=== PATIENT | male | born 1945 | race Hispanic/Latino ===

== ENCOUNTER 2017-12-27 02:45 | Emergency (ER) | payer OTHER ==
[2017-12-27] MEDS ORDERED: LABETALOL HCL 5 MG/ML 20ML VIAL IV ONE (03:10)
[2017-12-27 03:33] LABS: BASOPHILS % (AUTO) 0.9 % (0.0-5.0); EOSINOPHILS % (AUTO) 2.4 % (0.0-8.0); LYMPHOCYTES % (AUTO) 33.3 % (21.0-51.0); MEAN CORPUSCULAR HEMOGLOBIN 28.5 pg (27.0-33.0); MEAN CORPUSCULAR HGB CONC 33.8 g/dL (32.0-36.0); MEAN CORPUSCULAR VOLUME 84.4 fL (79-99); MONOCYTES % (AUTO) 12.2 % (3.0-13.0); NEUTROPHILS % (AUTO) 51.2 % (40.0-77.0); NUCLEATED RED BLOOD CELLS 0.1 % (0.0-0.19); PLATELET COUNT (AUTO) 254 K/uL (130-400); RED BLOOD CELL COUNT(AUTO) 4.98 MIL/uL (4.50-6.20); RED CELL DISTRIBUTION WIDTH 13.5 % (11.0-15.5); WHITE BLOOD COUNT (AUTO) 6.7 K/uL (4.8-10.8)
[2017-12-27 03:42] LABS: APPEARANCE,URINE Clear (CLEAR); BILIRUBIN,URINE Negative (NEGATIVE); COLOR,URINE Yellow (YELLOW); GLUCOSE, URINE (UA) Negative (NEGATIVE); KETONES,URINE Negative (NEGATIVE); LEUKOCYTE ESTERASE ,URINE Negative (NEGATIVE); NITRATE,URINE Negative (NEGATIVE); OCCULT BLOOD,URINE Negative (NEGATIVE); POTASSIUM 3.7 mmol/L (3.5-5.1); PROTEIN,URINE Negative (NEGATIVE); UROBILINOGEN,URINE 0.2 mg/dL (0.2-1.0)
== END 2017-12-27 05:38 | disposition home or self-care (01) ==
LOC: EDH 02:45
DX: R51 Headache (principal); I10 Essential (primary) hypertension
CPT/HCPCS: 36415; 70450; 80048; 81003; 84484; 85025; 93005; 96374; 99285; J3490

== ENCOUNTER → 2018-01-11 | Outpatient (CLI) | payer OTHER | END | disposition home or self-care (01) | LOC: RAH 07:31 | PROVIDERS: ATTEND Internal Medicine | DX: H53.2 Diplopia (principal); H53.8 Other visual disturbances; I10 Essential (primary) hypertension; R51 Headache | CPT/HCPCS: 70551 ==

== ENCOUNTER → 2019-11-01 | Outpatient (CLI) | payer OTHER | END | disposition home or self-care (01) | LOC: OIH 12:14 | PROVIDERS: ATTEND Internal Medicine | DX: R05 Cough (principal); M47.814 Spondylosis without myelopathy or radiculopathy, thoracic region | CPT/HCPCS: 71046 ==

== ENCOUNTER → 2019-11-05 | Outpatient (CLI) | payer OTHER | END | disposition home or self-care (01) | LOC: RAH 07:37 | PROVIDERS: ATTEND Internal Medicine | DX: K76.0 Fatty (change of) liver, not elsewhere classified (principal); R16.0 Hepatomegaly, not elsewhere classified; N28.1 Cyst of kidney, acquired; R05 Cough | CPT/HCPCS: 76700 ==

== ENCOUNTER 2020-04-09 01:22 | Inpatient (IN) | payer OTHER ==
[~2020-04-09] VITALS: Ht 182.9 cm; Wt 89.1 kg
[2020-04-09 01:42] LABS: BASOPHILS % (AUTO) 0.3 % (0.0-5.0); HEMATOCRIT 41.4 % (42-54); LYMPHOCYTES % (AUTO) 7.8 % (21.0-51.0); MEAN CORPUSCULAR HEMOGLOBIN 28.8 pg (27.0-33.0); MEAN CORPUSCULAR HGB CONC 34.1 g/dL (32.0-36.0); MEAN CORPUSCULAR VOLUME 84.7 fL (79-99); MONOCYTES % (AUTO) 5.3 % (3.0-13.0); NEUTROPHILS % (AUTO) 85.2 % (40.0-77.0); PLATELET COUNT (AUTO) 261 K/uL (130-400); RED BLOOD CELL COUNT(AUTO) 4.89 MIL/uL (4.50-6.20); RED CELL DISTRIBUTION WIDTH 12.7 % (11.0-15.5); WHITE BLOOD COUNT (AUTO) 15.8 K/uL (4.8-10.8)
[2020-04-09] MEDS ORDERED: ACETAMINOPHEN EXTRA STRENGTH 500 MG TABLET ONE (01:49)
[2020-04-09 01:53] LABS: CREATININE 1.5 mg/dL (0.5-1.5); POTASSIUM 3.4 mmol/L (3.5-5.1)
[2020-04-09 01:57] LABS: ALBUMIN 3.5 g/dL (3.5-5.0); BILIRUBIN,TOTAL 1.1 mg/dL (0.2-1.0); TOTAL PROTEIN, SERUM 7.9 g/dL (6.0-8.3)
[2020-04-09 01:59] LABS: INR 1.08 (0.85-1.15); PARTIAL THROMBOPLASTIN TIME 31.6 SEC (26.3-35.5); PROTHROMBIN TIME 11.6 SEC (9.6-11.6)
[2020-04-09 02:24] LABS: B-TYPE NATRIURETIC PEPTIDE 109 pg/mL (0-100)
[2020-04-09] MEDS ORDERED: CEFTRIAXONE SODIUM 2 GM VIAL ONE (03:54)
[2020-04-09] MEDS ORDERED: AZITHROMYCIN 500MG+NS 250ML 250 ML IV ONE (03:54)
[2020-04-09 04:13] LABS: ABG OXYGEN SATURATION 95.7 % (95.0-99.0); ABG PCO2 33 mmHg (35-48)
[2020-04-09] MEDS ORDERED: SODIUM CHLORIDE 0.9% 500ML 500 ML IV ONE (04:32)
[2020-04-09] MEDS ORDERED: ASPIRIN 325 MG TABLET ONE (04:32)
[2020-04-09 06:30] LABS: CREATININE 1.5 mg/dL (0.5-1.5); POTASSIUM 3.4 mmol/L (3.5-5.1)
[2020-04-09 06:34] LABS: ALBUMIN 2.8 g/dL (3.5-5.0); BILIRUBIN,TOTAL 0.6 mg/dL (0.2-1.0); TOTAL PROTEIN, SERUM 6.5 g/dL (6.0-8.3)
[2020-04-09] MEDS ORDERED: DOXYCYCLINE 100MG+NS 250ML IV SCH (06:45)
[2020-04-09] MEDS ORDERED: ERGOCALCIFEROL (VITAMIN D2) 50,000 UNIT CAPSULE PO SCH (06:45)
[2020-04-09] MEDS ORDERED: ONDANSETRON HCL 4 MG/2 ML VIAL IV PRN (06:45)
[2020-04-09] MEDS: CEFTRIAXONE SODIUM 1 GM IVP SCH ×2 (06:45→18:45)
[2020-04-09] MEDS ORDERED: NITROGLYCERIN 0.4 MG SL TAB SL PRN (06:45)
[2020-04-09] MEDS ORDERED: GUAIFENESIN-DM 200/20 MG 10 ML PO PRN (06:45)
[2020-04-09] MEDS ORDERED: ACETAMINOPHEN 325 MG TAB PO PRN ×2 (06:45)
[2020-04-09] MEDS: DOXYCYCLINE 100MG+NS 250ML 250 ML IV SCH ×2 (07:00→19:00)
[2020-04-09 07:03] LABS: BASOPHILS % (AUTO) 0.4 % (0.0-5.0); EOSINOPHILS % (AUTO) 0.4 % (0.0-8.0); HEMATOCRIT 37.6 % (42-54); LYMPHOCYTES % (AUTO) 8.1 % (21.0-51.0); MEAN CORPUSCULAR HEMOGLOBIN 29.3 pg (27.0-33.0); MEAN CORPUSCULAR HGB CONC 34.3 g/dL (32.0-36.0); MEAN CORPUSCULAR VOLUME 85.5 fL (79-99); MONOCYTES % (AUTO) 6.6 % (3.0-13.0); PLATELET COUNT (AUTO) 231 K/uL (130-400); RED CELL DISTRIBUTION WIDTH 12.7 % (11.0-15.5); WHITE BLOOD COUNT (AUTO) 14.4 K/uL (4.8-10.8)
[2020-04-09 08:08] LABS: TROPONIN I 0.05 ng/mL (0.00-0.06)
[2020-04-09] MEDS ORDERED: METHYLPREDNISOLONE SOD SUCC 40MG/ML 1ML ONE (08:42)
[2020-04-09] MEDS ORDERED: ASCORBIC ACID 500 MG TAB ONE (08:42)
[2020-04-09] MEDS ORDERED: ASPIRIN 81MG TAB.CHEW ONE (08:42)
[2020-04-09] MEDS ORDERED: ERGOCALCIFEROL (VITAMIN D2) 50,000 UNIT CAPSULE ONE (08:43)
[2020-04-09] MEDS ORDERED: ZINC SULFATE 220 CAPSULE ONE (08:44)
[2020-04-09] MEDS ORDERED: ACETYLCYSTEINE 600 MG CAPSULE ONE (08:44)
[2020-04-09] MEDS ORDERED: FAMOTIDINE 20MG TAB 20 MG TAB ONE (08:44)
[2020-04-09] MEDS ORDERED: ENOXAPARIN SODIUM 40 MG/0.4 ML SYRINGE SQ ONE (08:45)
[2020-04-09] MEDS ORDERED: DOXYCYCLINE 100MG+NS 250ML 250 ML IV ONE (08:46)
[2020-04-09] MEDS: FAMOTIDINE/PF 20 MG/2 ML VIAL IV SCH ×2 (09:00→21:10)
[2020-04-09] MEDS: ASPIRIN 81MG TAB.CHEW PO SCH (09:00)
[2020-04-09] MEDS: ACETYLCYSTEINE 600 MG CAPSULE PO SCH ×2 (09:00→22:16)
[2020-04-09] MEDS: ASCORBIC ACID 500 MG TAB PO SCH (09:00)
[2020-04-09] MEDS: ZINC SULFATE 220 CAPSULE PO SCH (09:00)
[2020-04-09] MEDS: METHYLPREDNISOLONE SOD SUCC 40MG/ML 1ML IVP SCH ×3 (09:00→22:16)
[2020-04-09] MEDS: ENOXAPARIN SODIUM 40 MG/0.4 ML SYRINGE SQ SCH (09:00)
[2020-04-09 13:13] LABS: APPEARANCE,URINE CLOUDY (CLEAR); BILIRUBIN,URINE NEGATIVE (NEGATIVE); COLOR,URINE YELLOW (YELLOW); GLUCOSE, URINE (UA) NEGATIVE (NEGATIVE); KETONES,URINE NEGATIVE (NEGATIVE); LEUKOCYTE ESTERASE ,URINE NEGATIVE (NEGATIVE); NITRATE,URINE NEGATIVE (NEGATIVE); OCCULT BLOOD,URINE LARGE (NEGATIVE); PROTEIN,URINE TRACE mg/dL (NEGATIVE); UROBILINOGEN,URINE 0.2 mg/dL (0.2-1.0)
[2020-04-09 13:36] LABS: BACTERIA,URINE Rare /HPF (None Seen); RBC,URINE TNTC /HPF (0-1); SQUAMOUS EPITHELIAL CELL,UR Rare /HPF (0-2)
[2020-04-09] MEDS ORDERED: CEFTRIAXONE SODIUM 1 GM ONE (16:13)
[2020-04-09] MEDS ORDERED: SODIUM CHLORIDE 0.9% 100 ML IV ONE (16:16)
[2020-04-09 20:34] VITALS: BP 133/71
[2020-04-09] MEDS ORDERED: ASPI-556 PO (22:34)
[2020-04-09] MEDS ORDERED: CLOP75TA32 PO (22:34)
[2020-04-09] MEDS ORDERED: AMLO-363 PO (22:34)
[2020-04-09] MEDS ORDERED: ATOR10 PO (22:34)
[2020-04-10] VITALS (8 sets, daily range): BP systolic 103–135; BP diastolic 53–74
[2020-04-10 05:32] LABS: BASOPHILS % (AUTO) 0.1 % (0.0-5.0); HEMATOCRIT 37.7 % (42-54); LYMPHOCYTES % (AUTO) 13.4 % (21.0-51.0); MEAN CORPUSCULAR HEMOGLOBIN 29.1 pg (27.0-33.0); MEAN CORPUSCULAR HGB CONC 34.2 g/dL (32.0-36.0); MEAN CORPUSCULAR VOLUME 84.9 fL (79-99); MONOCYTES % (AUTO) 3.3 % (3.0-13.0); NEUTROPHILS % (AUTO) 82.7 % (40.0-77.0); PLATELET COUNT (AUTO) 227 K/uL (130-400); RED BLOOD CELL COUNT(AUTO) 4.44 MIL/uL (4.50-6.20); RED CELL DISTRIBUTION WIDTH 12.6 % (11.0-15.5); WHITE BLOOD COUNT (AUTO) 8.9 K/uL (4.8-10.8)
[2020-04-10 05:52] LABS: ALBUMIN 2.9 g/dL (3.5-5.0); BILIRUBIN,TOTAL 0.4 mg/dL (0.2-1.0); CREATININE 1.2 mg/dL (0.5-1.5); CRP QUANTITATIVE 105.8 mg/L (0.00-9.0); POTASSIUM 3.7 mmol/L (3.5-5.1)
[2020-04-10] MEDS: CEFTRIAXONE SODIUM 1 GM IVP SCH ×2 (06:14→17:43)
[2020-04-10] MEDS: DOXYCYCLINE 100MG+NS 250ML 250 ML IV SCH ×2 (06:40→17:43)
[2020-04-10] MEDS: ENOXAPARIN SODIUM 40 MG/0.4 ML SYRINGE SQ SCH (09:00)
[2020-04-10] MEDS: ASCORBIC ACID 500 MG TAB PO SCH (09:00)
[2020-04-10] MEDS: METHYLPREDNISOLONE SOD SUCC 40MG/ML 1ML IVP SCH ×3 (09:01→21:07)
[2020-04-10] MEDS: FAMOTIDINE/PF 20 MG/2 ML VIAL IV SCH ×2 (09:01→21:07)
[2020-04-10] MEDS: ASPIRIN 81MG TAB.CHEW PO SCH (09:02)
[2020-04-10] MEDS: ACETYLCYSTEINE 600 MG CAPSULE PO SCH ×2 (09:02→21:07)
[2020-04-10] MEDS: ZINC SULFATE 220 CAPSULE PO SCH (09:03)
[2020-04-10] MEDS: DEXAMETHASONE 4 MG TAB PO SCH (22:30)
[2020-04-11 04:17] VITALS: BP 124/68
[2020-04-11] MEDS: CEFTRIAXONE SODIUM 1 GM IVP SCH ×2 (06:07→18:05)
[2020-04-11] MEDS: DOXYCYCLINE 100MG+NS 250ML 250 ML IV SCH (06:07)
[2020-04-11 06:49] LABS: BASOPHILS % (AUTO) 0.1 % (0.0-5.0); HEMATOCRIT 39.4 % (42-54); LYMPHOCYTES % (AUTO) 10.4 % (21.0-51.0); MEAN CORPUSCULAR HEMOGLOBIN 28.9 pg (27.0-33.0); MEAN CORPUSCULAR HGB CONC 34.3 g/dL (32.0-36.0); MEAN CORPUSCULAR VOLUME 84.4 fL (79-99); MONOCYTES % (AUTO) 5.5 % (3.0-13.0); NEUTROPHILS % (AUTO) 83.3 % (40.0-77.0); PLATELET COUNT (AUTO) 321 K/uL (130-400); RED BLOOD CELL COUNT(AUTO) 4.67 MIL/uL (4.50-6.20); RED CELL DISTRIBUTION WIDTH 12.8 % (11.0-15.5); WHITE BLOOD COUNT (AUTO) 12.5 K/uL (4.8-10.8)
[2020-04-11 07:16] LABS: BILIRUBIN,TOTAL 0.4 mg/dL (0.2-1.0); CREATININE 0.9 mg/dL (0.5-1.5); CRP QUANTITATIVE 40.1 mg/L (0.00-9.0); POTASSIUM 3.6 mmol/L (3.5-5.1); TOTAL PROTEIN, SERUM 7.3 g/dL (6.0-8.3)
[2020-04-11 08:00] VITALS: BP_SYST 130; BP_SYST 137; BP_DIAS 75; BP_DIAS 78
[2020-04-11] MEDS: PANTOPRAZOLE SODIUM 40 MG TABLET.DR PO SCH (09:02)
[2020-04-11] MEDS: ASCORBIC ACID 500 MG TAB PO SCH (09:02)
[2020-04-11] MEDS: ZINC SULFATE 220 CAPSULE PO SCH (09:02)
[2020-04-11] MEDS: ASPIRIN 81MG TAB.CHEW PO SCH (09:02)
[2020-04-11] MEDS: ACETYLCYSTEINE 600 MG CAPSULE PO SCH ×2 (09:02→20:59)
[2020-04-11] MEDS: ENOXAPARIN SODIUM 40 MG/0.4 ML SYRINGE SQ SCH (09:03)
[2020-04-11 12:56] VITALS: BP 123/62
[2020-04-11 16:00] VITALS: BP 137/78
[2020-04-11] MEDS: DEXAMETHASONE 4 MG TAB PO SCH (20:59)
[2020-04-11] MEDS: DOXYCYCLINE HYCLATE 100 MG TABLET PO SCH (20:59)
[2020-04-11 21:02] VITALS: BP 135/71
[2020-04-12 00:24] VITALS: BP 129/70
[2020-04-12 05:04] VITALS: BP 139/62
[2020-04-12 07:09] LABS: ALBUMIN 3.1 g/dL (3.5-5.0); BILIRUBIN,TOTAL 0.4 mg/dL (0.2-1.0); CREATININE 1.2 mg/dL (0.5-1.5); CRP QUANTITATIVE 19.3 mg/L (0.00-9.0); POTASSIUM 3.8 mmol/L (3.5-5.1); TOTAL PROTEIN, SERUM 7.5 g/dL (6.0-8.3)
[2020-04-12] MEDS: CEFTRIAXONE SODIUM 1 GM IVP SCH ×2 (07:10→18:07)
[2020-04-12 07:11] LABS: BASOPHILS % (AUTO) 0.1 % (0.0-5.0); HEMATOCRIT 41.9 % (42-54); LYMPHOCYTES % (AUTO) 14.3 % (21.0-51.0); MEAN CORPUSCULAR HEMOGLOBIN 28.6 pg (27.0-33.0); MEAN CORPUSCULAR HGB CONC 33.9 g/dL (32.0-36.0); MEAN CORPUSCULAR VOLUME 84.5 fL (79-99); NEUTROPHILS % (AUTO) 80.6 % (40.0-77.0); PLATELET COUNT (AUTO) 345 K/uL (130-400); RED BLOOD CELL COUNT(AUTO) 4.96 MIL/uL (4.50-6.20); RED CELL DISTRIBUTION WIDTH 12.8 % (11.0-15.5)
[2020-04-12] MEDS ORDERED: IOHEXOL 350 MG/ML 100ML INFUS..BTL IV ONE (07:52)
[2020-04-12 08:00] VITALS: BP 137/66
[2020-04-12] MEDS: DOXYCYCLINE HYCLATE 100 MG TABLET PO SCH ×2 (08:40→20:17)
[2020-04-12] MEDS: ACETYLCYSTEINE 600 MG CAPSULE PO SCH ×2 (08:40→20:17)
[2020-04-12] MEDS: ASPIRIN 81MG TAB.CHEW PO SCH (08:40)
[2020-04-12] MEDS: ZINC SULFATE 220 CAPSULE PO SCH (08:41)
[2020-04-12] MEDS: ENOXAPARIN SODIUM 40 MG/0.4 ML SYRINGE SQ SCH (08:41)
[2020-04-12] MEDS: ASCORBIC ACID 500 MG TAB PO SCH (08:41)
[2020-04-12] MEDS: PANTOPRAZOLE SODIUM 40 MG TABLET.DR PO SCH (08:41)
[2020-04-12 12:00] VITALS: BP 122/66
[2020-04-12 16:00] VITALS: BP 155/83
[2020-04-12 21:00] VITALS: BP 147/71
[2020-04-12] MEDS: DEXAMETHASONE 4 MG TAB PO SCH (22:30)
[2020-04-13 03:51] VITALS: BP 140/75
[2020-04-13 04:54] LABS: CREATININE 1.1 mg/dL (0.5-1.5); POTASSIUM 3.7 mmol/L (3.5-5.1)
[2020-04-13 05:44] LABS: BASOPHILS % (AUTO) 0.2 % (0.0-5.0); HEMATOCRIT 39.1 % (42-54); LYMPHOCYTES % (AUTO) 31.3 % (21.0-51.0); MEAN CORPUSCULAR HEMOGLOBIN 28.9 pg (27.0-33.0); MEAN CORPUSCULAR HGB CONC 33.5 g/dL (32.0-36.0); MEAN CORPUSCULAR VOLUME 86.3 fL (79-99); MONOCYTES % (AUTO) 10.7 % (3.0-13.0); NEUTROPHILS % (AUTO) 56.5 % (40.0-77.0); PLATELET COUNT (AUTO) 292 K/uL (130-400); RED BLOOD CELL COUNT(AUTO) 4.53 MIL/uL (4.50-6.20); RED CELL DISTRIBUTION WIDTH 12.8 % (11.0-15.5); WHITE BLOOD COUNT (AUTO) 10.4 K/uL (4.8-10.8)
[2020-04-13] MEDS: CEFTRIAXONE SODIUM 1 GM IVP SCH ×2 (06:03→18:57)
[2020-04-13 08:08] VITALS: BP 118/64
[2020-04-13] MEDS: PANTOPRAZOLE SODIUM 40 MG TABLET.DR PO SCH (09:00)
[2020-04-13] MEDS: ENOXAPARIN SODIUM 40 MG/0.4 ML SYRINGE SQ SCH (09:00)
[2020-04-13] MEDS: ACETYLCYSTEINE 600 MG CAPSULE PO SCH ×2 (09:00→20:22)
[2020-04-13] MEDS: DOXYCYCLINE HYCLATE 100 MG TABLET PO SCH ×2 (09:00→20:22)
[2020-04-13] MEDS: ASPIRIN 81MG TAB.CHEW PO SCH (09:00)
[2020-04-13] MEDS: ZINC SULFATE 220 CAPSULE PO SCH (09:00)
[2020-04-13] MEDS: ASCORBIC ACID 500 MG TAB PO SCH (09:00)
[2020-04-13 11:47] VITALS: BP 117/66
[2020-04-13 15:50] VITALS: BP 142/73
== END 2020-04-13 21:40 | disposition left against medical advice (07) | DRG 193 ==
LOC: EDH 01:22 → EDHIP 06:43 → 2DH 20:31
PROVIDERS: ADMIT Internal Medicine; ATTEND Internal Medicine
DX: J18.9 Pneumonia, unspecified organism (principal); J96.01 Acute respiratory failure with hypoxia; E87.2 Acidosis; J98.11 Atelectasis; R07.81 Pleurodynia; I25.10 Atherosclerotic heart disease of native coronary artery without angina pectoris; Z20.828 Contact with and (suspected) exposure to other viral communicable diseases; E78.00 Pure hypercholesterolemia, unspecified; E78.5 Hyperlipidemia, unspecified; I10 Essential (primary) hypertension; Z95.5 Presence of coronary angioplasty implant and graft; Z95.1 Presence of aortocoronary bypass graft; Z79.82 Long term (current) use of aspirin
CPT/HCPCS: 36415; 36600; 71045; 71275; 80048; 80053; 80061; 81001; 82550; 82728; 82803; 83605; 83615; 83874; 83880; 84145; 84484; 85025; 85378; 85610; 85730; 86140; 86900; 86901; 87040; 87088; 87486; 87581; 87633; 87798; 87804; 93005; 93306; 93356; G0378; J0456; J0696; J1650; J2920; J3490; J7040; J8540; Q9967; U0003

== ENCOUNTER → 2023-10-17 | Outpatient (CLI) | payer MEDICARE | END | disposition home or self-care (01) | LOC: RAH 13:28 | PROVIDERS: ATTEND Internal Medicine Cardiovascular Disease | DX: I08.2 Rheumatic disorders of both aortic and tricuspid valves (principal); I11.9 Hypertensive heart disease without heart failure; E78.5 Hyperlipidemia, unspecified | CPT/HCPCS: 93306 ==

== ENCOUNTER → 2024-09-30 | Outpatient (CLI) | payer MEDICARE ==
--- NOTE | 2024-09-30 14:48 | HMCSR ---
APPROVED REPORT EXAM: Two-dimensional and M-mode echocardiogram with Doppler and color Doppler. INDICATION ICD: I25.10 Atherosclerotic heart disease of [place] coronary artery without angina pectoris 2D Dimensions RVDd4.7 cmLVEF(%)51.2 (>50%)LVED Vol(simp.)174.0 mL IVSd1.0 (0.7-1.1cm)FS(%)27 %LVES Vol(simp.)83.0 mL LVDd5.9 (3.8-5.6cm)Ao Root(2D)3.3 (2.0-3.7cm)LVEF(%, simp.)53 % PWd1.0 (0.7-1.1cm)LVOT diam2.2 (1.8-2.4cm)LA ESV INDEX (BP)67.96 mL/m2 LVDs4.3 (2.5-4.0cm)IVC diam1.7 cm Aortic Valve AoV Vmax1.5 m/Mario Peak GR9.3 mmHgLVOT Vmax0.8 m/s AoV VTI0.4 mAo Mean GR4.8 mmHgLVOT VTI0.24 m TY (VMAX)2.2 cm2Al P1/2T651 msAVA (VTI) 2.2 cm2 Mitral Valve MV E Vmax83.7 cm/sDECEL Vtss398 ms MV A Vmax51.6 cm/sP 1/2 T63 ms E/A ratio1.6MVA (PHT)3.5 cm2 MR Max PG66 mmHg TDI E/E' Zxqdgd01.8E/E' Lateral9.8 Pulmonary Valve PV Vmax1.0 m/sPV VTI0.24 mPV Mean GR2 mmHg PV Peak GR3.8 mmHgPI End Parisa. Sarbjit 1.1 cm/s Tricuspid Valve TR Vmax2.6 m/sRAP (EST) 3 huZvQPTZ76.9 mmHg TR Peak GR26.9 mmHg Left Ventricle The left ventricle is mildly dilated. No regional wall motion abnormalities noted. Mild eccentric lef t ventricular hypertrophy. Left ventricular systolic function is low-normal, estimated LVEF is 50-55% . Grade 2 diastolic dysfunction. Right Ventricle The right ventricle is dilated. The right ventricular systolic function is normal. Atria The left atrium is severely dilated, 68ml/m2. The right atrium is severely dilated. Aortic Valve Aortic valve is trileaflet. The leaflets are mildly thickened and calcified. Moderate aortic regurgit ation. There is no aortic valvular stenosis. Mitral Valve The mitral valve is normal in structure and function. The leaflets are mildly thickened and calcified . Trace-mild mitral regurgitation. There is no mitral valve stenosis. Tricuspid Valve The tricuspid valve leaflets appear normal. Mild tricuspid regurgitation. RVSP is 27mmHg. Pulmonic Valve Pulmonic valve is not well visualized. Great Vessels The aortic root is normal in size. The IVC is normal in size and collapses >50% with inspiration. Pericardium No pericardial effusion. Conclusion The left atrium is severely dilated, 68ml/m2. The right atrium is severely dilated. The right ventricle is dilated. The left ventricle is mildly dilated. Mild eccentric left ventricular hypertrophy. No regional wall motion abnormalities noted. Left ventricular systolic function is low-normal, estimated LVEF is 50-55%. Grade 2 diastolic dysfunction. Moderate aortic regurgitation. Trace-mild mitral regurgitation. Mild tricuspid regurgitation. PASP is 30mmHg. No pericardial effusion.
== END | disposition home or self-care (01) ==
LOC: SHCH 08:52
PROVIDERS: ATTEND Internal Medicine Cardiovascular Disease
DX: I08.3 Combined rheumatic disorders of mitral, aortic and tricuspid valves (principal); I25.10 Atherosclerotic heart disease of native coronary artery without angina pectoris
CPT/HCPCS: 93306

== ENCOUNTER 2025-08-11 00:10 | Inpatient (IN) | payer MEDICARE ==
[~2025-08-11] VITALS: Ht 182.9 cm; Wt 61.6 kg
[2025-08-11] VITALS (83 sets, daily range): BP systolic 89–130; BP diastolic 48–74; PULSE 55–79; RESP 9–34; TEMP 98.1–99.3; O2SAT 90–100
[~2025-08-11 00:10] MED LIST: AMLO-258 PO; ASPI-1005 PO; UBID100C51 PO; VALS160T29 PO
--- NOTE | 2025-08-11 00:18 | NUR ---
EKG PERFORMED WITH ED MD AT BEDSIDE; ABNORMAL EKG PRESENTED TO ED MD
--- NOTE | 2025-08-11 00:33 | NUR ---
REPEAT 12 LEAD EKG PERFORMED; ABNORMAL EKG SHOWN TO ED MD.
[2025-08-11 00:41] LABS: CREATININE 1.1 mg/dL (0.5-1.3); GLOMERULAR FILTR. RATE CALC 68.0 mL/min (>90); GLUCOSE,RANDOM 100.0 mg/dL (70-105); SODIUM SERUM 138.0 mmol/L (136-145); UREA NITROGEN, BLOOD 23.0 mg/dL (7-18)
--- NOTE | 2025-08-11 00:45 | NUR ---
NOTED THAT CBC,BMP,BNP AND PT/PTT ARE RUNNING AND OR RESULTED TROPONIN ORDERED AT 0030 STILL SHOWS " LOG" LAB CALLED, SPOKE WITH IGOR, NOTIFIED HIM THAT TROPONIN WAS SHOWING ON OUR END " LOG"/ NOT RUNNING.
--- NOTE | 2025-08-11 00:48 | NUR ---
STEMI ALERT CALLED OVERHEAD AT THIS TIME
[2025-08-11 00:50] LABS: IMMATURE GRANULOCYTE ABSOLUTE 0.03 K/uL (0-1); NUCLEATED RED BLOOD CELLS 0.0 % (0.0-0.19); PLATELET COUNT (AUTO) 195 K/uL (130-400); RED BLOOD CELL COUNT(AUTO) 2.71 MIL/uL (4.50-6.20); RED CELL DISTRIBUTION WIDTH 13.8 % (11.0-15.5); WHITE BLOOD COUNT (AUTO) 7.2 K/uL (4.8-10.8)
[2025-08-11 00:52] LABS: INR 1.05 (0.85-1.15)
--- NOTE | 2025-08-11 00:57 | NUR ---
CALLED LAB , SPOKE WITH LAVON,AND ASKED ABOUT LACTIC THAT SHOWS " LOG" ORDERED AT 0033 THAT IS PENDING TO BE RUN. UNAWARE, NEEDS NEW SAMPLE.
[2025-08-11 01:06] LABS: ABG BASE EXCESS 0.0 mmol/L (-2.0-3.0); ABG HCO3 23.5 mmol/L (21.0-28.0); ABG OXYGEN SATURATION 91.3 % (94.0-98.0); ABG PCO2 33 mmHg (35-48); ABG PH 7.466 (7.350-7.450); CARBON MONOXIDE 0.3 % (0.5-1.5); PO2, ARTERIAL BG 67.8 mmHg (83.0-108.0); TEMPERATURE, CELSIUS BG 37.0 CELSIUS (35.5-37.0)
--- NOTE | 2025-08-11 01:17 | ERN ---
ED Note History of Present Illness Stated Complaint: CP, SOB, RADIATING TO LEFT ARM AND NECK Chief Complaint: Multiple Complaints Time Seen by MD: 00:20 Dictation: Pt is an 80 year old male who presented to the emergency room with complaints of acute left precordial chest pain with radiation to the jaw and bilateral upper extremities. He stated that he has had pain all day today. No history of any nausea vomitings. He also reports shortness of breath and is unable to take a deep breath. He was recently hospitalized for a right-sided femoral pseudo aneurysm repair. 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 Pt has a past medical history of HTN, HLD, Neuroendocrine cancer stg 4 diagnosed 2 years ago, now with liver mass undergoing continued care and monitoring at [facility], CAD s/p remote CABG in 1994 with patent LAD stent and SVG to RCA on the most recent cath performed in 2014. Pt also has stg II CKD and nephrolithiasis. Please note that the patient also had bradycardia during recent hospitalization. Temperature 97.3 pulse 78 respirations 16 blood pressure 107/54 pulse oximetry 98% on room air LVEF 55% and Moderate AR on echo in Sep 2024 Patient stated that his neuroendocrine cancer is currently being treated with a a medication fighting with a an L (? Lanreotide). Patient apparently has a mass in the liver kidney and unsure about pancreas. He missed his recent dose of the chemotherapy medication Allergies: Coded Allergies: Iodinated Contrast Media (Unverified Allergy, Unknown, 07/31/25) No Known Drug Allergies (Verified Allergy, Unknown, 11/04/19) atorvastatin (Unverified Allergy, Unknown, 07/31/25) Home Meds Reported Medications Ubidecarenone (Coq-10) 100 Mg Capsule, 100 MG PO DAILY, CAP 08/02/25 Aspirin (ASPIRIN 81MG CHEW TAB) 81 Mg Tab.chew, 1 TAB PO DAILY for 30 Days, #30 TAB 0 Refills 08/02/25 Amlodipine Besylate (Amlodipine Besylate) 10 Mg Tablet, 1 TAB PO DAILY for 30 Da ys, #30 TAB 0 Refills 08/02/25 Valsartan (Valsartan) 160 Mg Tablet, 1 TAB PO DAILY for 30 Days, #30 TAB 0 Refills 11/15/25 Past Medical History Past Medical History: Hypertension, Other Additional Past Medical Hx: LIVER CANCER Surgical History: CABG (1994), Other Surgical History Other: RT GROIN PSEUDOANEURYSM REPAIRCABG x 4 1994 with patent stent to LAD and SV Family History: Negative Social History: Negative RN Note Reviewed/Agreed w/PFSH: Yes Review of System Dictation Constitutional: Negative for fever,chills, and weight loss Eyes: Negative for injury, pain,redness, and discharge ENT: Negative for injury,pain or swelling Cardiovascular: Positive for chest pain, bilateral lower extremity edema Respiratory: Negative for shortness of breath, cough, and wheezing, Abdomen/GI: Negative for abdominal pain, nausea, vomiting, diarrhea, and constipation Back: Negative for injury and pain : Negative for injury, bleeding and discharge MS/Extremity: Negative for injury and deformity Skin: Negative for rash, and discoloration Neuro: Negative for headache, weakness, numbness, tingling, and seizure Psych: Negative for suicide ideation, homicidal ideation, and hallucinations Initial Vital Sign VS Vital Signs Date Time Temp Pulse Resp B/P (MAP) Pulse Ox O2 Delivery O2 Flow Rate FiO2 08/11/25 00:12 97.3 78 16 107/54 98 Room Air 08/11/25 00:34 3 32 Physical Exam Dictation General: awake, alert, very ill-appearing frail elderly male extremely pleasant and dyspneic Head/Face: Normocephalic, atraumatic Eyes: PERRL, EOMI, vision at baseline ENT: oral cavity clear, TMs clear, no signs of infection Neck: Trachea midline, supple, no nuchal rigidity Cardiovascular: RRR, normal S1/S2, No MRGs, no JVD old CABG scar Respiratory: CTAB, no respiratory distress, No rales or wheezes Abdomen: Soft, non-tender, non-distended, normal bowel sounds, no guarding or rebound. Skin: Warm, dry, normal turgor, no rash MS/Extremity: Pulses equal, no cyanosis, neurovascular intact, FROM right femoral area ecchymosis and induration Neuro: COAx4, GCS 15, strength 5/5, CN 2-12 intact, normal cerebellar exam, normal gait, Psych: Normal behavior, mood, and affect normal Extremities-2+ edema without any palpable cords, Homans sign is negative Results (Laboratory/Radiology) Laboratory/Radiology Laboratory Tests Test 08/11/25 00:20 08/11/25 01:03 08/11/25 01:04 White Blood Count 7.2 K/uL (4.8-10.8) Red Blood Count 2.71 MIL/uL (4.50-6.20) L Hemoglobin 8.6 g/dL (14.0-18.0) L Hematocrit 26.3 % (42-54) L Mean Corpuscular Volume 97.0 fL (79-99) Mean Corpuscular Hemoglobin 31.7 pg (27.0-33.0) Mean Corpuscular Hemoglobin Concent 32.7 g/dL (32.0-36.0) Red Cell Distribution Width 13.8 % (11.0-15.5) Platelet Count 195 K/uL (130-400) Mean Platelet Volume 9.7 fL (7.5-10.5) Immature Granulocyte % (Auto) 0.4 % (0-1) Neutrophils (%) (Auto) 70.0 % (40.0-77.0) Lymphocytes (%) (Auto) 18.4 % (21.0-51.0) L Monocytes (%) (Auto) 9.1 % (3.0-13.0) Eosinophils (%) (Auto) 1.7 % (0.0-8.0) Basophils (%) (Auto) 0.4 % (0.0-5.0) Neutrophils # (Auto) 5.0 K/uL (1.8-7.7) Lymphocytes # (Auto) 1.3 K/uL (1.0-4.8) Monocytes # (Auto) 0.7 K/uL (0.1-1.0) Eosinophils # (Auto) 0.12 K/uL (0.00-0.70) Basophils # (Auto) 0.03 K/uL (0.00-0.20) Absolute Immature Granulocyte (auto 0.03 K/uL (0-1) Nucleated Red Blood Cells 0.0 % (0.0-0.19) Prothrombin Time 11.1 SEC (9.6-11.6) Prothromb Time International Ratio 1.05 (0.85-1.15) Activated Partial Thromboplast Time 29.6 SEC (26.3-35.5) Sodium Level 138 mmol/L (136-145) Potassium Level 4.0 mmol/L (3.5-5.1) Chloride Level 101 mmol/L (101-111) Carbon Dioxide Level 29 mmol/L (21-32) Blood Urea Nitrogen 23 mg/dL (7-18) H Creatinine 1.1 mg/dL (0.5-1.3) Glomerular Filtration Rate Calc 68 mL/min (>90) Random Glucose 100 mg/dL (70-105) Total Calcium 8.3 mg/dL (8.5-10.1) L Total Creatine Kinase 264 U/L (21-232) #H Troponin I High Sensitivity 5428 ng/L (4-75) *H B-Type Natriuretic Peptide 2020 pg/mL (0-100) H Lactic Acid Level 2.5 mmol/L (0.8-2.5) Blood Gas Specimen Type Arterial Arterial Blood pH 7.466 (7.350-7.450) Arterial Blood Partial Pressure CO2 33 mmHg (35-48) L Arterial Blood Partial Pressure O2 67.8 mmHg (83.0-108.0) L Arterial Blood HCO3 23.5 mmol/L (21.0-28.0) Arterial Blood Oxygen Saturation 91.3 % (94.0-98.0) L Arterial Blood Base Excess 0.0 mmol/L (-2.0-3.0) Hemoglobin (Blood Gas) 9.2 g/dL (13.5-17.5) L Sodium (Blood Gas) 140 MMOL/L (136-145) Bedside Potassium (Blood Gas) 4.2 MMOL/L (3.4-4.5) Bedside Chloride (Blood Gas) 106 MMOL/L (98-107) Bedside Glucose (Blood Gas) 116 MG/DL (65-95) H Bedside Ionized Calcium (Blood Gas) 1.08 MMOL/L (1.15-1.33) L Bedside Lactic Acid (Blood Gas) 2.45 MMOL/L (0.36-0.75) H Blood Gas Temperature 37.0 CELSIUS (35.5-37.0) Blood Gas Flow-by 16.00 L/min (0.00-15.00) H Blood Gas Vent Mode RR NRB 15LPM (ROOM AIR) FiO2 100.0 % Blood Gas Specimen Comment SHAINA JEFFERS Labs Reviewed?: Yes EKG Comment: Twelve lead EKG done on 08/11/2025 at 12:33 a.m. shows a heart rate of 77, OR interval 202, QRS 113, QT/QTC is 403/456. Impression normal sinus rhythm with a acute ST-T elevations in V1 and V2 and V3. ST-T depressions in V5 V6 and lead [address]-T depressions also noted in inferior leads. Consistent with a acute STEMI myocardial infarction EKG rhythm strip shows normal sinus rhythm with a significant deep ST-T depressions. Presence of left anterior fascicular block. Compared to EKG done on August 02, [address]-T elevation changes or new. EKG August 02, 2025 shows sinus bradycardia incomplete right bundle branch and small Q's in the septal leads. Interpreted by ER MD Dr. Downs Ultrasound Comment: Echocardiogram-September 2024 The left atrium is severely dilated, 68ml/m2. The right atrium is severely dilated. The right ventricle is dilated. The left ventricle is mildly dilated. Mild eccentric left ventricular hypertrophy. No regional wall motion abnormalities noted. Left ventricular systolic function is low-normal, estimated LVEF is 50-55%. Grade 2 diastolic dysfunction. Moderate aortic regurgitation. Trace-mild mitral regurgitation. Mild tricuspid regurgitation. PASP is 30mmHg. No pericardial effusion. DICTATED BY: DUANE MAYFIELD MD DATE: 09/30/24 0922 ELECTRONICALLY SIGNED BY: DUANE MAYFIELD MD DATE: 09/30/24 1448 ED Course ED Course Orders Procedure Category Date Status Time Cbc With Differential LAB 08/11/25 Complete 00:12 Basic Metabolic Panel LAB 08/11/25 Complete 00:12 B-Type Natriuretic LAB 08/11/25 Complete Peptide 00:12 Pt And Ptt LAB 08/11/25 Complete 00:12 12 Lead Ekg Tracing- EKG 08/11/25 Logged Technical 00:12 Chest 1vw RAD 08/11/25 Resulted 00:12 Type And Screen BBK 08/11/25 Complete 00:29 Lactic Acid LAB 08/11/25 Complete 00:33 Troponin I High LAB 08/11/25 Complete Sensitivity 00:28 Creatine Kinase, Total LAB 08/11/25 Complete 00:28 Arterial Blood Gas RT 08/11/25 Transmitted 00:28 Morphine 2mg Syg PHA 08/11/25 Complete (Morphine 2mg Syg) 01:00 Ondansetron 4mg Inj PHA 08/11/25 Complete (Zofran 4mg Inj) 01:00 Ondansetron 4mg Inj PHA 08/11/25 Complete (Zofran 4mg Inj) 00:50 Morphine 2mg Syg PHA 08/11/25 Complete (Morphine 2mg Syg) 00:51 Clopidogrel 300mg Tab PHA 08/11/25 Complete (Plavix 300mg Tab) 01:00 Initiate Heparin ADAM 08/11/25 In Process Treatment Pro 00:54 Cbc With Differential LAB 08/12/25 Verified 04:00 Cbc With Differential LAB 08/15/25 Verified 04:00 Cbc With Differential LAB 08/18/25 Verified 04:00 Heparin 5,000 Unit PHA 08/11/25 In Process Vial (Heparin 5,000 U 02:00 Heparin 25,000 PHA 08/11/25 In Process Units/250ml D5w 02:00 Heparin Protocol CPOE 08/11/25 Transmitted Monitoring 00:54 Heparin 5,000 Unit PHA 08/11/25 Complete Vial (Heparin 5,000 U 01:00 Heparin 5,000 Unit PHA 08/11/25 Complete Vial (Heparin 5,000 U 01:04 Heparin 25,000 PHA 08/11/25 Complete Units/250ml D5w 01:04 Arterial Blood Gas LAB 08/11/25 Complete Arterial + 01:04 12 Lead Ekg Tracing- EKG 08/11/25 Logged Technical 01:09 Clopidogrel 300mg Tab PHA 08/11/25 Complete (Plavix 300mg Tab) 01:09 Cardiology Consult CONPHYS 08/11/25 Transmitted 01:09 Nitroglycerin 0.4mg PHA 08/11/25 In Process Sl Tab (Nitrostat) 01:30 Furosemide 20mg Vial PHA 08/11/25 Complete (Lasix 20mg Vial) 02:00 Admit Orders ADM 08/11/25 Transmitted 02:35 Critcal Care Consult CONPHYS 08/11/25 Transmitted 02:35 Current Medications Medications (Trade) Dose Ordered Sig/Chaka Route PRN Reason Start Time Stop Time Status Last Admin Dose Admin Clopidogrel Bisulfate (plaVIX 300MG TAB) 300 mg ONCE ONCE PO 08/11/25 01:00 08/11/25 01:13 DC 08/11/25 01:13 Clopidogrel Bisulfate (plaVIX 300MG TAB) 300 mg STK-MED ONCE .ROUTE 08/11/25 01:09 08/11/25 01:09 DC Furosemide (LASix 20MG VIAL) 20 mg ONCE ONCE IV 08/11/25 02:00 08/11/25 02:01 DC Heparin Sodium (Porcine) (HEParin 5,000 UNIT VIAL) *calculation based on ACTUAL B... AD PRN IV HEPARIN PROTOCOL 08/11/25 02:00 09/10/25 01:59 Heparin Sodium (Porcine) (HEParin 5,000 UNIT VIAL) 5,000 unit ONCE ONCE IV 08/11/25 01:00 08/11/25 01:13 DC 08/11/25 01:14 Heparin Sodium (Porcine) (HEParin 5,000 UNIT VIAL) 5,000 unit STK-MED ONCE .ROUTE 08/11/25 01:04 08/11/25 01:04 DC Heparin Sodium/ Dextrose 250 ml @ As Directed STK-MED ONCE IV 08/11/25 01:04 08/11/25 01:04 DC Heparin Sodium/ Dextrose 250 ml @ 0 mls/hr Q6H IV 08/11/25 02:00 09/10/25 01:59 08/11/25 01:16 Morphine Sulfate (morPHINE 2MG SYG) 2 mg ONCE ONCE IVP 08/11/25 01:00 08/11/25 01:01 DC Morphine Sulfate (morPHINE 2MG SYG) 2 mg STK-MED ONCE .ROUTE 08/11/25 00:51 08/11/25 00:51 DC 08/11/25 00:54 Nitroglycerin (Nitrostat) 0.4 mg AD PRN SL CHEST PAIN 08/11/25 01:30 09/10/25 01:29 Ondansetron HCl (zoFRAN 4MG INJ) 4 mg ONCE ONCE IVP 08/11/25 01:00 08/11/25 01:01 DC Ondansetron HCl (zoFRAN 4MG INJ) 4 mg STK-MED ONCE .ROUTE 08/11/25 00:50 08/11/25 00:51 DC 08/11/25 00:54 Vital Signs Date Time Temp Pulse Resp B/P (MAP) Pulse Ox O2 Delivery O2 Flow Rate FiO2 08/11/25 02:26 98.2 66 16 112/62 99 Non-Rebreather+ 15 100 08/11/25 01:54 98.2 68 12 108/58 92 Non-Rebreather+ 15 100 08/11/25 01:16 98.4 72 18 118/60 99 Non-Rebreather+ 15 100 08/11/25 00:55 98.4 76 28 114/72 91 Non-Rebreather+ 15 100 08/11/25 00:34 98.4 81 24 110/64 92 Nasal Cannula* 3 32 08/11/25 00:12 97.3 78 16 107/54 98 Room Air We will perform diagnostic labs, advanced imaging and administer medications according to the patient's complaint. Once the results are available, will review and personally interpreted the labs to rule out any acute life- threatening emergency the trach require immediate intervention and treatment. I will then re-evaluate the patient after treatment and diagnostic exams have return to determine whether the patient requires any further testing, can safely be discharged home or need further admission to hospital for additional treatment and evaluation. HEART Score Response (Comments) Value History: High suspicion (+2) 2 EKG: Significant ST depression 2 Age: > 65yrs (+2) 2 Risk Factors: 3+ risk factors (+2) 2 Initial Troponin: >3x Normal Limit (+2) 2 HEART Score Risk: High Risk for MACE (7-10) Total 10 Medical Decision Making MDM Differential diagnosis: Acute NV, NSTEMI, CHF, pneumonia, anemia, electrolyte abnormalities, Pt is an 80 year old male who presented to the emergency room with complaints of acute left precordial chest pain with radiation to the jaw and bilateral upper extremities. He stated that he has had pain all day today. No history of any nausea vomitings. He also reports shortness of breath and is unable to take a deep breath. He was recently hospitalized for a right-sided femoral pseudo aneurysm repair. 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 Pt has a past medical history of HTN, HLD, Neuroendocrine cancer stg 4 diagnosed 2 years ago, now with liver mass undergoing continued care and monitoring at [facility], CAD s/p remote CABG in 1994 with patent LAD stent and SVG to RCA on the most recent cath performed in 2014. Pt also has stg II CKD and nephrolithiasis. Please note that the patient also had bradycardia during recent hospitalization. Temperature 97.3 pulse 78 respirations 16 blood pressure 107/54 pulse oximetry 98% on room air LVEF 55% and Moderate AR on echo in Sep 2024 Patient stated that his neuroendocrine cancer is currently being treated with a a medication fighting with a an L (? Lanreotide). Patient apparently has a mass in the liver kidney and unsure about pancreas. He missed his recent dose of the chemotherapy medication STEMI alert was called at 12:48 a.m.. Patient received aspirin at home. Plavix 300 mg, morphine and heparin drip initiated. Nitro PRN for the chest pain. 12:50 a.[address]. discussed with the Dr. Angelia Montalvo pebble mill operator on-call and shared the EKG pictures. At this current time she recommends only medical therapy and to keep patient NPO for now. 1:11 a.m. verbal report troponin 1st set 5428 and lactic acid was 2.5. Patient will be admitted to the intensive care unit for further management. Patient accepted by Onur Olmstead, mid-level provider for hospitalist group for admission and further management Rationale: Tests considered and ordered secondary to shared decision making include: labs, ECG and radiology Previous outside records reviewed: Old ER visits. Risk of complication and/or morbidity or mortality of patient management: None Medications-Per medication reconciliation Need for hospitalization: Patient does meet criteria for hospitalization. Need for emergency major/minor surgery: No There are no social concerns with this patient. Prescription drug management Prescriptions will include symptomatic care Patient's prior external medical records from other ER visits were reviewed by me as indicated. Prior testing and results from previous visits were reviewed. Prior tests were taken into account with medical decision making and resource u tilization, independent historian/historians were used to obtain complete medical history. I independently interpreted the test that were performed, results were reviewed by me and considered findings on radiology if ordered. Medical management and examination interpretation discussions were had by me with other qualified healthcare professionals as indicated for the patient's ca re. Problem List Problem List: (1) Acute ST elevation myocardial infarction (2) Coronary artery disease (3) Hypertension (4) Neuroendocrine malignancy (5) Protein-calorie malnutrition, severe Critical Care Note Critical Time: 45 minutes Comment(s) Life-threatening illness; acute STEMI, ischemic cardiomyopathy, decompensated CHF with preserved EF, coronary artery disease, stage IV neuroendocrine Ca Risk of morbidity mortality-high Complexity of medical decision making-high (X) high probability of sudden clinically significant deterioration in the patient's condition required the highest level of my preparedness to intervene urgently. I provided critical care services requiring my direct and personal management as noted below; (x) chart data review (x) reviewing nurse's notes and/charts (x) documentation time (x) consultation collaboration on findings and therapy options (x) medication orders and management (x) re-evaluations (x) care, transfer of care, and discharge plans (x) ordering and interpreting studies (x) ordering and reviewing labs (x) obtaining necessary history from family, EMS, senior care, private MD, surrogate decision makers because patient was unable to give history due to limitations in the mental status (x) aggregate critical care time was (45 ) minutes. This includes only time during which I was engaged in work directly related to the patient's care as described above whether at the bedside or elsewhere in the ER while the patient was critical. My time did not include minutes spent treating any other patients simultaneously or on activities that did not directly contribute to the patient's treatment. It did not include time spent performing other reported procedures or services of residents if any. Celine Downs MDFCCP DX & DISP Disposition: Inpatient Decision to Admit Time: 01:16 Departure Impression: Primary Impression: Acute ST elevation myocardial infarction Additional Impressions: Coronary artery disease, Hypertension, Neuroendocrine malignancy, Protein-calorie malnutrition, severe, ACC/AHA stage B congestive heart failure due to ischemic cardiomyopathy Condition: Stable Additional Instructions: Patient was informed of all the diagnostic labs and procedures conducted in the emergency room today and demonstrated understanding of the results. I personally reviewed and interpreted all the diagnostic exams performed in the ER today. The patient will be admitted to the hospital for further treatment and evaluation. Disposition-admit to facility Condition-stable/guarded Course-uncertain at this time Pain status-decreased Assessment-exam unchanged Admission Certification- I certify that the patients status is appropriate and is based on my best clinical judgment and the patient's condition as documented in the medical records Referrals: RAJI RICHARDS MD (PCP) CELINE DOWNS MD Aug 11, 2025 01:17
[2025-08-11] MEDS ORDERED: NITROGLYCERIN 0.4 MG SL TAB SL PRN ×2 (01:30→03:00)
--- NOTE | 2025-08-11 02:16 | HMCIMG ---
EXAM: CR Chest, 1 View. CLINICAL HISTORY: CP, SOB COMPARISON: None provided. FINDINGS: LUNGS: The lungs show airspace and interstitial opacities in the bilateral perihilar region consistent with pulmonary edema PLEURAL SPACES: No evidence of pleural effusion or pneumothorax. MEDIASTINUM: Cardiac size and mediastinal contours are mildly enlarged with pulmonary congestion BONES: No aggressively appearing osseous lesion was seen. IMPRESSION: Cardiomegaly with pulmonary vascular congestion. Features of pulmonary edema. Sternal wire consistent with post-CABG changes. /[place]
--- NOTE | 2025-08-11 02:37 | HP ---
History of Present Illness Reason for Visit: chest pain Referring MD: Shanae History of Present Illness Mr. Chapa is an 80-year-old male that was seen and examined today on 08/11/25. Patient is a good historian of personal health. Patient's , Sol Chapa is at bedside. Patient reports that he came to the emergency department with a chief complaint of chest pain. Onset was at midnight. Location is midsternal. Duration is on and off. Character is described as pressure. Patient reports that pain radiates to the jaw, neck, and bilateral arms. There was no alleviating factors. There was no aggravating factors. Patient reports associated shortness and breath. STEMI alert was called in the emergency department and emergency room physician spoke to party plan dealer who de activated STEMI alert. Patient was started on a heparin drip. Chest x-ray is significant for pulmonary edema and congestion. Labs are significant for BUN of , creatinine 1.1, calcium 8.3, BNP 2020, CK 264, troponin 54, ABG showed pH of 7.42, pCO2 of 33, PO2 67.8 On room air, lactic acid is elevated at 2.45 2 Past Medical History Patient History: Diabetes mellitus BROTHER BROTHER SISTER SISTER FH: cancer MOTHER FATHER Hypertension BROTHER BROTHER SISTER SISTER PAST MEDICAL HISTORY: [ liver mass, hypertension, neuroendocrine cancer and coronary artery disease with CABG x4 and cardiac stent x1 ] PAST SURGICAL HISTORY: [ CABG x 4 ,cardiac stent x1 and IR Mapping 2/2 liver ,mass ] PAST SOCIAL HISTORY: [ Patient lives with Sol Chapa. Patient denies alcohol tobacco and recreational drug use. Patient lives with his , Sol Chapa Review of Systems General: No Fever, No Chills, No Night Sweats, No Fatigue, No Malaise, No Appetite, No Other HEENT: No Head Aches, No Visual Changes, No Eye Pain, No Ear Pain, No Dysphasia, No Sinus Congestion, No Post Nasal Drip, No Sore Throat, No Other Pulmonary: Dyspnea; No Cough, No Pleuritic Chest Pain, No Other Cardiovascular: Chest Pain; No: Palpitations, Orthopnea, Paroxysmal Noc. Dyspnea, Edema, Lt Headedness, Other Gastrointestinal: No: Nausea, Vomiting, Abdominal Pain, Diarrhea, Constipation, Melena, Hematochezia, Other Genitourinary: No Dysuria, No Frequency, No Incontinence, No Hematuria, No Retention, No Other Musculoskeletal: No: other, neck pain, shoulder pain, arm pain, back pain, hand pain, leg pain, foot pain Skin: No Urticaria, No Rash, No Other Neurological: No: Weakness, Numbness, Incoordination, Change in speech, Confusion, Seizures, Other Allergies: Coded Allergies: Iodinated Contrast Media (Unverified Allergy, Unknown, 07/31/25) No Known Drug Allergies (Verified Allergy, Unknown, 11/04/19) atorvastatin (Unverified Allergy, Unknown, 07/31/25) Scheduled Amlodipine Besylate (Amlodipine Besylate), 1 TAB PO DAILY, (Reported) Aspirin (Aspirin 81MG Chew Tab), 1 TAB PO DAILY, (Reported) Ubidecarenone (Coq-10), 100 MG PO DAILY, (Reported) Valsartan (Valsartan), 1 TAB PO DAILY, (Reported) Exam Vital Signs Vital Signs Date Time Temp Pulse Resp B/P (MAP) Pulse Ox O2 Delivery O2 Flow Rate FiO2 08/11/25 02:26 98.2 66 16 112/62 99 Non-Rebreather+ 15 100 General Appearance: Alert, Oriented X3, Cooperative, moderate distress HEENT: Atraumatic, EOMI Respiratory: Other (Positive bilateral rhonchi) Cardiovascular: Normal S1, Normal S2 Abdominal: Normal bowel sounds, Soft, No tenderness Extremities: No edema, Other (Positive weakness to bilateral lower extremities) Skin: No significant lesion Neuro: Sensation intact, Cranial nerves 3-12 NL Psych/Mental Status: Mental status NL, Mood NL, Thoughts/Content NL Assessment/Plan ASSESSMENT: [ STEMI, POA Heart failure with preserved ejection fraction grade diastolic dysfunction by 2D echo in July 2025, POA Chronic anemia, POA Hypertension] PLAN: [ Admit patient to intensive care unit as inpatient status. Patient will be followed by critical care service. Patient will be followed by cardiology service. Place patient on telemetry monitoring. Continue heparin drip per hospital protocol Patient received Plavix 300 mg by mouth loading dose Continue [id number] mg by mouth daily Continue mg by mouth once daily Aspirin 162 mg by mouth times 1 Nitroglycerin sublingual 0.4 mg as needed for chest pain every 5 minutes, max 3 doses, hold for systolic blood pressure less than 100 mmHg. Supplemental oxygen to maintain O2 saturation greater 92%. Trend troponin every 6 hours x3 sets Monitor intake and output every shift Weight patient daily Patient received Lasix 20 mg IV times in the emergency department Consider resuming home medications once they have been reconciled At time of admission home medications not been reconciled. Reviewed rib patient's recent 2D echo which showed LVEF 50-55% with grade diastolic dysfunction For now: Hydralazine 10 mg IV every 4 hours for systolic blood pressure greater than 160 mmHg GI prophylaxis, famotidine DVT prophylaxis, patient is on heparin drip as stated above Critical Care Time: I spent ___51___ minutes of critical care time with the patient. I reviewed lab work, change the patient's medication, and coordinated protocol in the event of tachycardia or desaturation. The patient status remains unchanged ADVANCED CARE PLANNING 1. Which of the following were discussed? Hospice Care - Yes Therapeutic options - yes Advance Directives - Yes - patient does not have any advance directives in place at this time, however his sol Chapa can make decisions for him if he becomes unable. Other discussions - patient wishes to remain a full code at this time 2. Discussed with who? Patient 3. Voluntary nature of this service was explained to the patient? Yes 4. Amount of time spent - ___16 minutes____ 5. Reviewed by Physician? (if this service was performed by NPP) Yes This document was generated in part using voice recognition software, occasional wrong word or sound alike substitutions may have occurred due to the inherent limitations of voice recognition software. Read the chart carefully and recognize using context, where the substitutions have occurred. Although every effort was made to edit the content, hearing care practitioner and typing errors may occur ATTESTATION BY PHYSICIAN I have seen and examined the patient. I reviewed the documentation, medical decision making, and treatment plan as noted by the mid-level provider above. I agree with the findings and plan of care. DEVANTE RICKS [facility] Aug 11, 2025 02:37
[2025-08-11] MEDS: ASPIRIN 81MG CHEW TAB PO ONE (03:48)
--- NOTE | 2025-08-11 04:04 | NUR ---
CRITICAL CARE CONSULT DONE AT THIS TIME
--- NOTE | 2025-08-11 04:05 | NUR ---
REPORT GIVEN TO CHRISTIAN JEFFERS
--- NOTE | 2025-08-11 04:10 | NUR ---
received report from kassi jeffries, all questions answered
--- NOTE | 2025-08-11 05:44 | EKG ---
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 : 1945 Requested By: SARAH MENDEZ Order Number: [id number] Reading MD: Hi Flores Measurements Intervals [place] Rate: 77 P: 39 DE: 202 QRS: -57 QRSD: 113 T: 182 QT: 403 QTc: 456 Interpretive Statements Sinus rhythm Left anterior fascicular block Probable anterior infarct, age indeterm Repol abnrm, severe global ischemia (LM/MVD) Compared to ECG 08/02/2025 14:16:05 Myocardial infarct finding now present Early repolarization now present Possible ischemia now present Sinus bradycardia no longer present Incomplete right bundle-branch block no longer present Electronically Signed On 08-12-2025 20:59:19 ELIGIBILITY SPECIALIST by Hi Flores Please click the below link to view image of tracing.
--- NOTE | 2025-08-11 05:45 | EKG ---
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 : 1945 Requested By: SARAH MENDEZ Order Number: [id number] Reading MD: Hi Flores Measurements Intervals [place] Rate: 78 P: 25 MO: 209 QRS: -60 QRSD: 99 T: 158 QT: 393 QTc: 450 Interpretive Statements Sinus rhythm Left anterior fascicular block Anterior infarct, age indeterminate Abnormal T, consider ischemia, lateral leads Compared to ECG 08/02/2025 14:16:05 Myocardial infarct finding now present T-wave abnormality now present Possible ischemia now present Sinus bradycardia no longer present Incomplete right bundle-branch block no longer present Electronically Signed On 08-12-2025 20:59:02 ENGINEHOUSE BRAKEMAN by Hi Flores Please click the below link to view image of tracing.
[2025-08-11 06:15] LABS: LDL DIRECT 86.0 mg/dL (0-99)
[2025-08-11] MEDS: FAMOTIDINE 20MG VIAL IV ONE ×4 (07:00→18:48)
[2025-08-11] MEDS: ASPIRIN 81 MG EC TAB PO SCH (08:16)
[2025-08-11] MEDS: FAMOTIDINE 20MG TAB PO SCH (08:17)
--- NOTE | 2025-08-11 08:37 | NUR ---
dr. bran at bedside, aware of pt status, new orders given and followed.
[2025-08-11 09:02] LABS: ABG BASE EXCESS 1.4 mmol/L (-2.0-3.0); ABG HCO3 25.1 mmol/L (21.0-28.0); ABG OXYGEN SATURATION 94.3 % (94.0-98.0); ABG PCO2 36 mmHg (35-48); ABG PH 7.463 (7.350-7.450); CARBON MONOXIDE 0.9 % (0.5-1.5); DEVICE COMMENT LR; PO2, ARTERIAL BG 77.5 mmHg (83.0-108.0); TEMPERATURE, CELSIUS BG 37.0 CELSIUS (35.5-37.0)
[2025-08-11 10:05] LABS: APPEARANCE,URINE CLEAR (CLEAR); GLUCOSE, URINE (UA) NEGATIVE (NEGATIVE); LEUKOCYTE ESTERASE ,URINE NEGATIVE Leu/uL (NEGATIVE); NITRATE,URINE NEGATIVE (NEGATIVE); OCCULT BLOOD,URINE NEGATIVE (NEGATIVE)
[2025-08-11 10:08] LABS: ADD UA MICROSCOPIC NO
--- NOTE | 2025-08-11 10:33 | NUR ---
advised pt and spouse to bring medications for med reconciliation, as per spouse will bring meds in.
--- NOTE | 2025-08-11 14:00 | NUR ---
paged leather colorer again at this time, left voicemail for call back for further planning orders for this pt. pending call back from cardiology at this time.
--- NOTE | 2025-08-11 16:50 | NUR ---
c scheduled with dm [facility] nurse, dr. selby also voiced [facility] to be tentatively scheduled for 08/12/25 made dm rn also aware.
--- NOTE | 2025-08-11 17:32 | HMCSR ---
APPROVED REPORT EXAM: Two-dimensional and M-mode echocardiogram with Doppler and color Doppler. INDICATION ICD: ST-elevation MS 2D Dimensions RVDd 3.9 cm LVEF(%) 30.1 (>50%) LVED Vol(simp.) 168.0 mL IVSd 0.9 (0.7-1.1cm) FS(%) 14 % LVES Vol(simp.) 114.0 mL LVDd 5.6 (3.8-5.6cm) LA (2D) 3.5 (1.6-4.0cm) LVEF(%, simp.) 32 % PWd 1.1 (0.7-1.1cm) Ao Root(2D) 2.1 (2.0-3.7cm) LA ESV INDEX (BP) 45.01 mL/m2 LVDs 4.8 (2.5-4.0cm) LVOT diam 2.1 (1.8-2.4cm) IVC diam 1.6 cm Deformation Strain Apical 4 -10.4 % Apical 2 -8.0 % Apical 3 -6.9 % Global Strain -8.5 % M-Mode Dimensions EPSS 1.5 cm LA (MM) 4.4 (1.6-4.0cm) Ao Root(MM) 2.1 (2.0-3.7cm) Aortic Valve AoV Vmax 1.4 m/s Ao Peak GR 7.9 mmHg LVOT Vmax 0.9 m/s AoV VTI 0.3 m Ao Mean GR 4.3 mmHg LVOT VTI 0.18 m TY (VMAX) 2.27 cm2 Al P1/2T 370 ms TY (VTI) 2.2 cm2 Mitral Valve MV E Vmax 91.5 cm/s DECEL Time 74 ms MV A Vmax 51.4 cm/s P 1/2 T 55 ms E/A ratio 1.8 MVA (PHT) 4.0 cm2 TDI E/E' Medial 24.9 E/E' Lateral 11.4 Medial E' Peak V 3.67 cm/s Lateral E' Peak V 8.01 cm/s Pulmonary Valve PV Vmax 1.1 m/s PV VTI 0.19 m PV Mean GR 3.0 mmHg PV Peak GR 5.0 mmHg Tricuspid Valve TR Vmax 2.8 m/s RVSP 32.4 mmHg TR Peak GR 32.6 mmHg Left Ventricle The left ventricle is dilated. Regional wall motion abnormalities noted. There is normal left ventricular wall thickness. LVEF is 30-35%. Stage II diastolic dysfunction. Right Ventricle The right ventricle is normal size. The right ventricular systolic function is normal. Atria The left atrium is moderately dilated. The right atrium size is normal. Aortic Valve The aortic valve is normal in structure. Trace-mild aortic regurgitation. There is no aortic valvular stenosis. Mitral Valve The mitral valve is normal in structure. Mitral regurgitation is trace. There is no mitral valve stenosis. Tricuspid Valve The tricuspid valve is normal in structure. There is mild tricuspid valve regurgitation noted. Pulmonic Valve Pulmonic valve is not well visualized. There is no pulmonic valvular regurgitation. Great Vessels The aortic root is normal in size. The IVC is normal in size and collapses >50% with inspiration. Pericardium There is no pericardial effusion. Other Information Quality : Average Conclusion The left ventricle is dilated. LVEF is 30-35% with severe apical and anterior wall hypokinesis. Stage II diastolic dysfunction. The right ventricular systolic function is normal. The left atrium is moderately dilated. No hemodynamically significant valvular abnormalities. There is no pericardial effusion.
--- NOTE | 2025-08-11 17:41 | CONS ---
[facility] CARDIOLOGY CONSULTATION NOTE Date Patient Seen: Aug 11, 2025 Time of Visit: 17:35 Reason for Consultation: [chest pain, STEMI ] History of Present Illness: [Patient is an 80 yo M with PMH CABG in 1994 and s/p C 2014 with no patent grafts and patent RCA and LAD stents. His LVEF 55% in sep 2024, now has declined to 30%. Trop has trending upward to 62,601. ECG with aVR ST elevation and q waves in v1-v2 and ST elevation with diffuse ST depression. On heparin gtt and no active chest pain at this time. Patient reports that he came to the emergency department with a chief complaint of chest pain. Onset was at midnight. Location is midsternal. Duration is on and off. Character is described as pressure. Patient reports that pain radiates to the jaw, neck, and bilateral arms. There was no alleviating factors. There was no aggravating factors. Patient reports associated shortness and breath. STEMI alert was called in the emergency department and emergency room physician spoke to inventory administrator who deactivated STEMI alert. Patient was started on a heparin drip. Chest x-ray is significant for pulmonary edema and congestion. Labs are significant for BUN of , creatinine 1.1, calcium 8.3, BNP 2020, CK 264, troponin 54, ABG showed pH of 7.42, pCO2 of 33, PO2 67.8 On room air, lactic acid is elevated at 2.45. ] Past Medical History: [ ] Past Surgical History: [ ] Family History: [ ] Social History: [ ] Habits: [Never] smoker. [Denies] alcohol consumption. [Denies] illicit drug use Home Meds: [ ] Current Meds: [ ] Review of Systems: CONST: [No fever, fatigue, or weight changes.] EYES: [No recent vision problems.] ENT: [No congestion, ear pain, or sore throat.] C/V: [No chest pain, palpitations, or edema.] RESP: [No cough, congestion, wheezing or shortness of breath.] GI: [No abdominal pain, nausea, vomiting, constipation, or diarrhea.] : [No incontinence or dysuria.] SKIN: [No rash.] NEURO: [No headache, focal numbness or weakness, dizziness, or seizures.] PSYCH: [No depression or anxiety.] HEME: [No abnormal bruising or bleeding.] LYMPH: [No swollen glands.] Physical Examination: GENERAL: [No acute distress.] HEAD: [Normal with no signs of head trauma.] EYES: [PERRLA, EOMI, conjunctiva and sclera normal.] ENT: [Hearing grossly intact, normal oropharynx.] NECK: [Supple without JVD. There is no tenderness, lymphadenopathy, or masses. No thyromegaly. Normal carotid upstrokes without bruits.] LUNGS: [Clear breath sounds bilaterally. There are right basilar rales one third of the way up the chest. No wheezes, or rhonchi.] HEART: [Normal rate and rhythm. Normal S1 and S2 without mumurs, gallop or rub.] VASC: [Peripheral pulses +2 bilaterally.] ABD: [Bowel sounds normal, soft, nontender, no masses, no organomegaly. No audible bruits.] : [Not examined] LYMPH: [No lymphadenopathy noted.] EXT: [No clubbing, cyanosis or edema.] SKIN: [No rashes or lesions noted.] NEURO: [Awake, alert, and oriented x3. No focal sensory or strength deficits noted.] Vital Signs (last 8hr) Date Time Temp Pulse Resp B/P (MAP) Pulse Ox O2 Delivery O2 Flow Rate FiO2 08/11/25 16:45 63 22 104/53 97 Nonrebreathing Mask 15.0 08/11/25 16:30 61 22 97/56 99 Nonrebreathing Mask 15.0 08/11/25 16:15 66 22 104/59 97 Nonrebreathing Mask 15.0 08/11/25 16:00 91 Non-Rebreather+ 15 21 08/11/25 16:00 71 20 89/59 78 Nonrebreathing Mask 15.0 08/11/25 15:45 78 22 106/67 77 Nonrebreathing Mask 15.0 08/11/25 15:30 63 22 101/56 98 Nonrebreathing Mask 15.0 08/11/25 15:15 65 22 102/57 98 Nonrebreathing Mask 15.0 08/11/25 15:00 67 22 107/64 98 Nonrebreathing Mask 15.0 08/11/25 14:45 67 22 111/65 99 Nonrebreathing Mask 15.0 08/11/25 14:30 68 22 118/63 99 Nonrebreathing Mask 15.0 08/11/25 14:15 65 22 106/57 98 Nonrebreathing Mask 15.0 08/11/25 14:00 64 22 107/58 94 Nonrebreathing Mask 15.0 08/11/25 13:45 65 22 106/60 98 Nonrebreathing Mask 15.0 08/11/25 13:30 63 22 104/54 95 Nonrebreathing Mask 15.0 08/11/25 13:15 63 22 105/55 97 Nonrebreathing Mask 15.0 08/11/25 13:00 64 22 107/60 96 08/11/25 12:45 64 22 110/54 98 Nonrebreathing Mask 15.0 08/11/25 12:30 64 22 108/59 98 Nonrebreathing Mask 15.0 08/11/25 12:15 64 22 106/58 97 08/11/25 12:00 99.3 64 22 108/57 97 Nonrebreathing Mask 15.0 08/11/25 12:00 91 Non-Rebreather+ 15 21 08/11/25 11:57 63 18 Non Rebreather 15.0 100 08/11/25 11:45 64 22 105/56 99 08/11/25 11:30 64 22 110/56 98 Nonrebreathing Mask 15.0 08/11/25 11:15 63 22 103/56 95 08/11/25 11:00 65 22 112/69 98 08/11/25 10:45 67 22 112/61 97 Nonrebreathing Mask 15.0 08/11/25 10:30 68 20 112/52 95 08/11/25 10:15 65 22 110/58 94 Nonrebreathing Mask 15.0 08/11/25 10:00 77 22 130/65 97 Nonrebreathing Mask 15.0 08/11/25 09:45 64 22 111/59 98 Laboratory: [ ] Hematology Labs: Test 08/11/25 00:20 Range/Units White Blood Count 7.2 4.8-10.8 K/uL Red Blood Count 2.71 L 4.50-6.20 MIL/uL Hemoglobin 8.6 L 14.0-18.0 g/dL Hematocrit 26.3 L 42-54 % Mean Corpuscular Volume 97.0 79-99 fL Mean Corpuscular Hemoglobin 31.7 27.0-33.0 pg Mean Corpuscular Hemoglobin Concent 32.7 32.0-36.0 g/dL Red Cell Distribution Width 13.8 11.0-15.5 % Platelet Count 195 130-400 K/uL Mean Platelet Volume 9.7 7.5-10.5 fL Immature Granulocyte % (Auto) 0.4 0-1 % Neutrophils (%) (Auto) 70.0 40.0-77.0 % Lymphocytes (%) (Auto) 18.4 L 21.0-51.0 % Monocytes (%) (Auto) 9.1 3.0-13.0 % Eosinophils (%) (Auto) 1.7 0.0-8.0 % Basophils (%) (Auto) 0.4 0.0-5.0 % Neutrophils # (Auto) 5.0 1.8-7.7 K/uL Lymphocytes # (Auto) 1.3 1.0-4.8 K/uL Monocytes # (Auto) 0.7 0.1-1.0 K/uL Eosinophils # (Auto) 0.12 0.00-0.70 K/uL Basophils # (Auto) 0.03 0.00-0.20 K/uL Absolute Immature Granulocyte (auto 0.03 0-1 K/uL Nucleated Red Blood Cells 0.0 0.0-0.19 % Chemistry Labs: Test 08/11/25 14:28 08/11/25 05:41 08/11/25 00:20 Range/Units Troponin I High Sensitivity 43514 *H 4-75 ng/L Hemoglobin A1c 5.3 4.0-6.0 % Estimated Average Glucose (eAG) 105 70-126 mg/dL Lactic Acid Level 2.3 0.8-2.5 mmol/L Triglycerides Level 58 30-200 mg/dL Cholesterol Level 157 # <200 mg/dL LDL Cholesterol 86 0-99 mg/dL HDL Cholesterol 57 29-71 mg/dL Thyroid Stimulating Hormone (TSH) 1.34 0.36-3.74 uIU/mL Sodium Level 138 136-145 mmol/L Potassium Level 4.0 3.5-5.1 mmol/L Chloride Level 101 101-111 mmol/L Carbon Dioxide Level 29 21-32 mmol/L Blood Urea Nitrogen 23 H 7-18 mg/dL Creatinine 1.1 0.5-1.3 mg/dL Glomerular Filtration Rate Calc 68 >90 mL/min Random Glucose 100 70-105 mg/dL Total Calcium 8.3 L 8.5-10.1 mg/dL Total Creatine Kinase 264 #H 21-232 U/L B-Type Natriuretic Peptide 2020 H 0-100 pg/mL Coagulation Labs: Test 08/11/25 14:28 08/11/25 00:20 Range/Units Activated Partial Thromboplast Time 105.3 *H 26.3-35.5 SEC Prothrombin Time 11.1 9.6-11.6 SEC Prothromb Time International Ratio 1.05 0.85-1.15 Diagnostics / Radiology: [Copy/Paste Echos/Imaging Report here] Plan: [ #STEMI -will trend troponin until it downtrends -[facility] in AM with Dr Sanchez. Case was discussed in detail with Dr Sanchez and decision was made to wait until the AM as patient is not having active chest pain and infarct completed given q waves in v1-v2. 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
--- NOTE | 2025-08-11 18:00 | NUR ---
consent for lhc signed by pt at this time, spouse at bedside, consent placed in chart. smokehouse operator made aware of lhc order for schedule tomorrow am .
--- NOTE | 2025-08-11 19:09 | CONS ---
[facility] CONSULTATION NOTE Date Patient Seen: Aug 11, 2025 Time of Visit: 13:56 Supervising Physician: BEKA LEON MD Reason for Consultation: NANNETTE Primary Care Physician: BEKA LEON IV Outpatient Specialists: [ ] Inpatient Consults: NANNETTE PROBLEM LIST: 1. STEMI 2. PULMONARY EDEMA 3. HEART FAILURE WITH PRESERVED EJECTION FRACTION GRADE DIASTOLIC DYSFUNCTION BY ECHOCARDIOGRAM IN 08/12 POA 4. CHRONIC ANEMIA, POA 5. HYPERTENSION 6. HX OF CAD S/P CABG, CARDIAC STENT X 1 7. HX OF NEUROENDOCRINE CANCER HPI: Patient is an 80 year old gentleman admitted with chief complaint of chst pain to midsternal aspect, states pain was on and off with radiation to the jaw, neck and bilateral arms. There was no alleviating factor. Reports associated shortness of breath. Ruled for STEMI, cardiology consulted, placed on heparin drip, chest x ray showed pulmonary edema right more than left. Noted with elevated BP and cK. Elevated lactic acid of 2.4 on admission. Plan is to continue monitoring closely, follow cardiac recommendations. PAST MEDICAL HX: see above PAST SURGICAL HX: noncontributory SOCIAL HISTORY: No tobacco, ETOH, or illicit drug use Coded Allergies: Iodinated Contrast Media (Unverified Allergy, Unknown, 07/31/25) No Known Drug Allergies (Verified Allergy, Unknown, 11/04/19) atorvastatin (Unverified Allergy, Unknown, 07/31/25) REVIEW OF SYSTEMS: 12 point ROS reviewed with patient. Pertinent positives mentioned above. Otherwise negative. PHYSICAL EXAM: GENERAL: alert, weak, awake oriented x 3 HEENT: EOMI, Sclera non icteric, moist mucosa NECK: Supple, no JVD, trachea midline LUNGS: Clear breath sounds bilaterally. No wheezes HEART: Regular rate and rhythm. Normal S1 and S2, without murmurs ABD: Abdomen soft, nontender. Bowel sounds present EXT: No clubbing cyanosis or edema NEURO: Alert and oriented to person, follows commands Vital Signs (last 8hr) Date Time Temp Pulse Resp B/P (MAP) Pulse Ox O2 Delivery O2 Flow Rate FiO2 08/11/25 18:52 63 18 Non Rebreather 15.0 100 08/11/25 18:44 63 20 102/57 99 Nonrebreathing Mask 15.0 08/11/25 18:00 68 20 110/61 91 Nonrebreathing Mask 15.0 08/11/25 17:45 68 22 112/62 99 Nonrebreathing Mask 15.0 08/11/25 17:30 69 22 105/60 86 Nonrebreathing Mask 15.0 08/11/25 17:15 77 20 102/57 88 Nonrebreathing Mask 15.0 08/11/25 17:00 67 22 111/63 98 Nonrebreathing Mask 15.0 08/11/25 16:45 63 22 104/53 97 Nonrebreathing Mask 15.0 08/11/25 16:30 61 22 97/56 99 Nonrebreathing Mask 15.0 08/11/25 16:15 66 22 104/59 97 Nonrebreathing Mask 15.0 08/11/25 16:00 91 Non-Rebreather+ 15 21 08/11/25 16:00 71 20 89/59 78 Nonrebreathing Mask 15.0 08/11/25 15:45 78 22 106/67 77 Nonrebreathing Mask 15.0 08/11/25 15:30 63 22 101/56 98 Nonrebreathing Mask 15.0 08/11/25 15:15 65 22 102/57 98 Nonrebreathing Mask 15.0 08/11/25 15:00 67 22 107/64 98 Nonrebreathing Mask 15.0 08/11/25 14:45 67 22 111/65 99 Nonrebreathing Mask 15.0 08/11/25 14:30 68 22 118/63 99 Nonrebreathing Mask 15.0 08/11/25 14:15 65 22 106/57 98 Nonrebreathing Mask 15.0 08/11/25 14:00 64 22 107/58 94 Nonrebreathing Mask 15.0 08/11/25 13:45 65 22 106/60 98 Nonrebreathing Mask 15.0 08/11/25 13:30 63 22 104/54 95 Nonrebreathing Mask 15.0 08/11/25 13:15 63 22 105/55 97 Nonrebreathing Mask 15.0 08/11/25 13:00 64 22 107/60 96 08/11/25 12:45 64 22 110/54 98 Nonrebreathing Mask 15.0 08/11/25 12:30 64 22 108/59 98 Nonrebreathing Mask 15.0 08/11/25 12:15 64 22 106/58 97 08/11/25 12:00 99.3 64 22 108/57 97 Nonrebreathing Mask 15.0 08/11/25 12:00 91 Non-Rebreather+ 15 21 08/11/25 11:57 63 18 Non Rebreather 15.0 100 08/11/25 11:45 64 22 105/56 99 08/11/25 11:30 64 22 110/56 98 Nonrebreathing Mask 15.0 08/11/25 11:15 63 22 103/56 95 08/11/25 11:00 65 22 112/69 98 LABS: Hematology Labs: Test 08/11/25 00:20 Range/Units White Blood Count 7.2 4.8-10.8 K/uL Red Blood Count 2.71 L 4.50-6.20 MIL/uL Hemoglobin 8.6 L 14.0-18.0 g/dL Hematocrit 26.3 L 42-54 % Mean Corpuscular Volume 97.0 79-99 fL Mean Corpuscular Hemoglobin 31.7 27.0-33.0 pg Mean Corpuscular Hemoglobin Concent 32.7 32.0-36.0 g/dL Red Cell Distribution Width 13.8 11.0-15.5 % Platelet Count 195 130-400 K/uL Mean Platelet Volume 9.7 7.5-10.5 fL Immature Granulocyte % (Auto) 0.4 0-1 % Neutrophils (%) (Auto) 70.0 40.0-77.0 % Lymphocytes (%) (Auto) 18.4 L 21.0-51.0 % Monocytes (%) (Auto) 9.1 3.0-13.0 % Eosinophils (%) (Auto) 1.7 0.0-8.0 % Basophils (%) (Auto) 0.4 0.0-5.0 % Neutrophils # (Auto) 5.0 1.8-7.7 K/uL Lymphocytes # (Auto) 1.3 1.0-4.8 K/uL Monocytes # (Auto) 0.7 0.1-1.0 K/uL Eosinophils # (Auto) 0.12 0.00-0.70 K/uL Basophils # (Auto) 0.03 0.00-0.20 K/uL Absolute Immature Granulocyte (auto 0.03 0-1 K/uL Nucleated Red Blood Cells 0.0 0.0-0.19 % Chemistry Labs: Test 08/11/25 14:28 08/11/25 05:41 08/11/25 00:20 Range/Units Troponin I High Sensitivity 53482 *H 4-75 ng/L Hemoglobin A1c 5.3 4.0-6.0 % Estimated Average Glucose (eAG) 105 70-126 mg/dL Lactic Acid Level 2.3 0.8-2.5 mmol/L Triglycerides Level 58 30-200 mg/dL Cholesterol Level 157 # <200 mg/dL LDL Cholesterol 86 0-99 mg/dL HDL Cholesterol 57 29-71 mg/dL Thyroid Stimulating Hormone (TSH) 1.34 0.36-3.74 uIU/mL Sodium Level 138 136-145 mmol/L Potassium Level 4.0 3.5-5.1 mmol/L Chloride Level 101 101-111 mmol/L Carbon Dioxide Level 29 21-32 mmol/L Blood Urea Nitrogen 23 H 7-18 mg/dL Creatinine 1.1 0.5-1.3 mg/dL Glomerular Filtration Rate Calc 68 >90 mL/min Random Glucose 100 70-105 mg/dL Total Calcium 8.3 L 8.5-10.1 mg/dL Total Creatine Kinase 264 #H 21-232 U/L B-Type Natriuretic Peptide 2020 H 0-100 pg/mL Coagulation Labs: Test 08/11/25 14:28 08/11/25 00:20 Range/Units Activated Partial Thromboplast Time 105.3 *H 26.3-35.5 SEC Prothrombin Time 11.1 9.6-11.6 SEC Prothromb Time International Ratio 1.05 0.85-1.15 DIAGNOSTICS / RADIOLOGY RESULTS: [ ] PLAN NEURO: Minimize central acting medications as possible. Maintain fall precautions, adequate lighting during the day PULMONARY: Supplemental 02 as needed. Maintain aspiration precautions at all times CARDIOVASCULAR: Follow hemodynamics. Vital signs per facility protocol GI & NUTRITION: Continue with nutritional support. Continue stool softeners and laxatives as needed. KIDNEYS & ELECTROLYTES: Strict monitoring of intake, output and overall fluid balance. Avoid nephrotoxic medications to the extent possible. Medications to be dosed according to renal function. Monitor electrolytes and replace as needed ENDOCRINE: Maintain blood glucose between 100-180 at all times. Hypoglycemia protocol in place INFECTIOUS DISEASE: Trend temperature, WBC and procalcitonin level Follow cultures, deescalate antibiotics as soon as possible. Panculture if new onset fever ONCOLOGY/HEMATOLOGY/COAGULATION: Monitor for s/s of bleeding Monitor hemoglobin, coagulation studies as needed SKIN: Pressure ulcer prevention per facility protocol Specialty mattress ORTHO/REHAB: Continue PT/OT Prophylaxis: Continue GI and DVT prophylaxis Code Status: Full Resuscitation Disposition: TBD Other: Total patient care time is 36 minutes excluding all procedures. ATTESTATION BY PHYSICIAN Documentation assistance provided by a scribe, information recorded by the scribe was done at my direction and has been reviewed and validated by me." VEENA MARI MD I personally scribed for VEENA MARI MD ([email or web address]) on 08/11/25 at 19:09. Electronically submitted by Salma Edmonds ([id number]). VEENA MARI MD Aug 11, 2025 19:09
[2025-08-11] MEDS ORDERED: FAMOTIDINE 20MG VIAL IV ONE (23:55)
[2025-08-12] VITALS (92 sets, daily range): BP systolic 81–127; BP diastolic 37–67; PULSE 45–68; RESP 10–39; TEMP 97.6–99.8; O2SAT 92–100
[2025-08-12] MEDS: FAMOTIDINE 20MG VIAL IV ONE (01:18)
[2025-08-12] MEDS: ALBUMIN (HUMAN) 25% 50 ML IV ONE (02:19)
[2025-08-12 02:55] LABS: ABG BASE EXCESS 2.0 mmol/L (-2.0-3.0); ABG HCO3 25.9 mmol/L (21.0-28.0); ABG OXYGEN SATURATION 97.6 % (94.0-98.0); ABG PCO2 37 mmHg (35-48); ABG PH 7.460 (7.350-7.450); CARBON MONOXIDE 0.6 % (0.5-1.5); DEVICE COMMENT RR RN; PO2, ARTERIAL BG 117.0 mmHg (83.0-108.0); TEMPERATURE, CELSIUS BG 37.0 CELSIUS (35.5-37.0); VENT MODE, BG HFNC (ROOM AIR)
[2025-08-12 03:32] LABS: IMMATURE GRANULOCYTE ABSOLUTE 0.03 K/uL (0-1); NUCLEATED RED BLOOD CELLS 0.0 % (0.0-0.19); PLATELET COUNT (AUTO) 129 K/uL (130-400); RED BLOOD CELL COUNT(AUTO) 2.46 MIL/uL (4.50-6.20); RED CELL DISTRIBUTION WIDTH 13.5 % (11.0-15.5); WHITE BLOOD COUNT (AUTO) 5.2 K/uL (4.8-10.8)
--- NOTE | 2025-08-12 03:35 | NUR ---
spoke with kwesi stahl, okay to start on levophed at a low dose to keep map above 65, prior to levophed SBP was in the 80s and MAP was sustaining in the 50s despite albumin 50ml x1 dose given. ok to start levo now
[2025-08-12] MEDS: NOREPINEPHRIN 4MG/NS 250ML 250 ML IV PRN (03:42)
[2025-08-12 03:45] LABS: ASPARTATE AMINOTRANSFERASE 151.0 U/L (10-37); CREATININE 1.3 mg/dL (0.5-1.3); GLOMERULAR FILTR. RATE CALC 56.0 mL/min (>90); GLUCOSE,RANDOM 172.0 mg/dL (70-105); PHOSPHORUS 3.8 mg/dL (2.5-4.9); SODIUM SERUM 137.0 mmol/L (136-145); TOTAL PROTEIN, SERUM 6.0 g/dL (6.0-8.3); UREA NITROGEN, BLOOD 29.0 mg/dL (7-18)
--- NOTE | 2025-08-12 05:37 | HMCIMG ---
EXAM: CR Chest, 1 View. CLINICAL HISTORY: CP, SOB COMPARISON: Radiograph of the chest dated August 11 FINDINGS: LUNGS: The lungs show airspace and interstitial opacities in the bilateral perihilar region consistent with pulmonary edema PLEURAL SPACES: No evidence of pleural effusion or pneumothorax. MEDIASTINUM: Cardiac size and mediastinal contours are mildly enlarged with pulmonary congestion BONES: No aggressively appearing osseous lesion was seen. IMPRESSION: Cardiomegaly with pulmonary vascular congestion. Features of pulmonary edema. Sternal wire consistent with post-CABG changes. Stable radiograph, no significant interval changes noted. /Sharron
--- NOTE | 2025-08-12 07:48 | NUR ---
SCRAP METAL BURNER RNCLYDE CALLED TO UNIT THAT PT CATH PLACED ON HOLD DUE TO DROP IN HEMOGLOBIN.
--- NOTE | 2025-08-12 10:16 | HMCIMG ---
EXAM: US bilateral Upper Extremity Nonvascular Soft Tissue Ultrasound CLINICAL HISTORY: Patency of bilateral common femoral arteries TECHNIQUE: Real-time ultrasound scan of the bilateral upper extremity with image documentation. COMPARISON: None provided. FINDINGS: Right Lower Limb: Common Femoral Artery (CHIEF CLERK): Triphasic flow pattern with peak systolic velocity of 89 cm/s. Superficial Femoral Artery (SFA) Proximal: Biphasic flow, peak systolic velocity 67 cm/s. Superficial Femoral Artery (SFA) Mid: Biphasic flow, peak systolic velocity 79 cm/s. Superficial Femoral Artery (SFA) Distal: Biphasic flow, peak systolic velocity 66 cm/s. Popliteal Artery (Proximal): Biphasic flow, peak systolic velocity 52 cm/s. Popliteal Artery (Distal): Biphasic flow, peak systolic velocity 48 cm/s. Posterior Tibial Artery ([employer] INTERPRETER): Biphasic flow, peak systolic velocity 61 cm/s. Anterior Tibial Artery (GME): Biphasic flow, peak systolic velocity 40 cm/s. Dorsalis Pedis Artery (DPA): Biphasic flow, peak systolic velocity 28 cm/s. Left Lower Limb: Common Femoral Artery (CHIEF CLERK): Triphasic flow pattern with peak systolic velocity 134 cm/s. Superficial Femoral Artery (Proximal): Biphasic flow, peak systolic velocity 67 cm/s. Superficial Femoral Artery (Distal): Biphasic flow, peak systolic velocity 60 cm/s. Popliteal Artery (Proximal): Biphasic flow, peak systolic velocity 48 cm/s. Popliteal Artery: Biphasic flow, peak systolic velocity 60 cm/s. Posterior Tibial Artery ([employer] INTERPRETER): Biphasic flow, peak systolic velocity 67 cm/s. Anterior Tibial Artery (GEM): Biphasic flow, peak systolic velocity 40 cm/s. Dorsalis Pedis Artery (DPA): Biphasic flow, peak systolic velocity 38 cm/s. Evidence of multilevel atherosclerotic changes with diffuse thinning of arterial west throughout the left lower limb arterial system. IMPRESSION: Multilevel atherosclerotic changes in bilateral lower limb arteries. Biphasic flow pattern in multiple arterial segments in both lower limbs, suggestive of reduced arterial compliance and early arterial insufficiency. /Sharron
--- NOTE | 2025-08-12 11:15 | NUR ---
DCP: HOME- Possible HH [place] [facility] Nadine met with pt and his Sol [facility] [phone]. Pt was discharged home 08/05. Pt reports nothing has changed since last admission. Pt lives at home with , has no DME or in home care services. Uses no DME. Pt states he may need HH [place] [facility]. Nadine explained that PCP can make referral to HH if it can not be arranged at [facility]. PCP is Corry Hodges and uses [facility] for rx. DCP is home Addendum: 08/12/25 at 1127 by MARIAM LONG Amended: Links added.
--- NOTE | 2025-08-12 11:53 | PN ---
[facility] PROGRESS NOTE Date of Service: Aug 12, 2025 Time of Service: 11:[address] Rodriguez SUBJECTIVE: [08/11/25 Mr. Chapa is an 80-year-old male that was seen and examined today on 08/11/25. Patient is a good historian of personal health. Patient's , Sol Chapa is at bedside. Patient reports that he came to the emergency department with a chief complaint of chest pain. Onset was at midnight. Location is midsternal. Duration is on and off. Character is described as pressure. Patient reports that pain radiates to the jaw, neck, and bilateral arms. There was no alleviating factors. There was no aggravating factors. Patient reports associated shortness and breath. STEMI alert was called in the emergency department and emergency room physician spoke to drafter structural who de activated STEMI alert. Patient was started on a heparin drip. Chest x-ray is significant for pulmonary edema and congestion. Labs are significant for BUN of , creatinine 1.1, calcium 8.3, BNP 2020, CK 264, troponin 54, ABG showed pH of 7.42, pCO2 of 33, PO2 67.8 On room air, lactic acid is elevated at 2.45 2 08/12/25 patient was seen by nurse practitioner and physician during rounding in room 219 Chest x-ray showed cardiomegaly and pulmonary vascular congestion/pulmonary edema and also some sternal wires possibly s/p CABG changes. 2D echo showed EF of 30 to 35% stage II diastolic dysfunction. Patient is pending still arterial ultrasound reading was performed but no results posted yet. Patient was evaluated by the drafter structural and that is pending left heart catheterization with Dr. Sanchez today 08/12/2025 in the afternoon. Patient was shaved for LHC and was little bit cath now some blood is oozing from the pubic area. Patient also has a history of cancer Dr. Vora investment strategist was consulted. Patient remains in ICU for now. We will continue to monitor patient in the meantime. A.m. labs.] REVIEW OF SYSTEMS CONSTITUTIONAL: Denies fevers, chills, or night sweats. No unintentional weight loss reported. NEUROLOGICAL: Denies headache, amaurosis fugax, motor weakness, sensory deficit, vertigo/spinning sensation, gait abnormalities, or tremors. ENT: No hearing loss, otalgia, otorrhea, rhinitis, rhinorrhea, hoarseness, or sore throat. CARDIOVASCULAR: Denies any exertional angina, dyspnea on exertion, orthopnea, paroxysmal nocturnal dyspnea, palpitations, life-threatening arrhythmias, claudication. PULMONARY: Denies any shortness of breath, cough, phlegm/sputum, hemoptysis, pleuritic chest pain. SLEEP: Denies morning headaches, daytime somnolence or napping. Denies difficulty falling asleep, staying asleep, waking from sleep. Denies knowledge of snoring. GASTROINTESTINAL: Denies any type of dysphagia to either liquids or solids. Denies nausea, vomiting, pyrosis, early satiety, abdominal pain, diarrhea, co nstipation, or changes in stool consistency or caliber. Denies coffee-ground emesis, hematemesis, hematochezia, or melanotic stools. GENITOURINARY: Denies frequency, urgency, nocturia, hematuria or incontinence (Storage/Irritative symptoms.) Low urinary stream, straining to void, urinary intermittency or hesitancy, splitting of the voiding stream, terminal dribbling. ENDOCRINOLOGIC: Denies polyuria, polydipsia, polyphagia or heat/cold intolerances. HEMATOLOGIC: Denies thrombophilia/previous clots, or coagulopathy/bleeding disorders. ONCOLOGIC: Denies personal history of malignancy. DERMATOLOGIC: Denies rashes or pruritus. PSYCHIATRIC: Denies any suicidal or homicidal ideation. Denies hallucinations. PHYSICAL EXAM GENERAL APPEARANCE: The patient is awake, alert, and oriented, in no acute car diopulmonary distress. NEUROLOGICAL: Cranial nerves II-XII grossly intact. Motor is 5/5 in bilateral upper and lower extremities proximal to distal. No sensory deficits. HEENT: Face is symmetric. Pupils are equal and reactive. Extraocular movements are intact. NECK: Supple. No JVD. No thyromegaly. No submental, submandibular, pre- /postauricular, occipital or supraclavicular lymphadenopathy. CHEST: Normal chest expansion. No Telemetry. LUNGS: Absence of any rales, rhonchi or any wheezing. CARDIOVASCULAR: Regular. S1 and S2 normal. No appreciable rubs, murmurs or gallops. ABDOMEN: Soft, nontender, and nondistended. There is no rebound, voluntary guarding, or rigidity. : Deferred. No Matthews. EXTREMITIES: Non-edematous and not cyanotic. No clubbing. Good capillary refill. SKIN: No skin breakdown. Vital Signs (last 8hr) Date Time Temp Pulse Resp B/P (MAP) Pulse Ox O2 Delivery O2 Flow Rate FiO2 08/12/25 08:42 99.9 08/12/25 08:18 97.5 08/12/25 07:49 49 18 N/Cannula Oximizer Hi LPM 8.0 08/12/25 07:37 56 12 101/55 (70) 91 08/12/25 07:22 55 16 106/67 (80) 92 08/12/25 07:07 58 16 100/46 (64) 95 08/12/25 06:30 100 Hi-Flow N/C+ 30 21 08/12/25 05:54 47 22 93/41 (58) 99 08/12/25 05:37 48 24 99/52 (68) 97 08/12/25 05:22 51 17 97/49 (65) 99 08/12/25 05:16 49 18 96/42 (60) 100 08/12/25 05:07 50 23 91/49 (63) 99 08/12/25 04:52 51 22 96/51 (66) 99 08/12/25 04:37 48 96/52 (67) 99 08/12/25 04:22 49 13 93/51 (65) 100 08/12/25 04:07 50 22 95/46 (62) 100 08/12/25 04:00 50 21 97 08/12/25 03:52 49 17 93/49 (64) 100 LABS: Laboratory: Test 08/12/25 09:25 08/12/25 03:14 08/12/25 02:53 08/11/25 20:32 Range/Units Activated Partial Thromboplast Time 55.0 #H 26.3-35.5 SEC White Blood Count 5.2 4.8-10.8 K/uL Red Blood Count 2.46 L 4.50-6.20 MIL/uL Hemoglobin 7.8 L 14.0-18.0 g/dL Hematocrit 23.0 L 42-54 % Mean Corpuscular Volume 93.5 79-99 fL Mean Corpuscular Hemoglobin 31.7 27.0-33.0 pg Mean Corpuscular Hemoglobin Concent 33.9 32.0-36.0 g/dL Red Cell Distribution Width 13.5 11.0-15.5 % Platelet Count 129 #L 130-400 K/uL Mean Platelet Volume 9.8 7.5-10.5 fL Immature Granulocyte % (Auto) 0.6 0-1 % Neutrophils (%) (Auto) 90.0 H 40.0-77.0 % Lymphocytes (%) (Auto) 5.0 L 21.0-51.0 % Monocytes (%) (Auto) 4.4 3.0-13.0 % Eosinophils (%) (Auto) 0.0 0.0-8.0 % Basophils (%) (Auto) 0.0 0.0-5.0 % Neutrophils # (Auto) 4.7 1.8-7.7 K/uL Lymphocytes # (Auto) 0.3 L 1.0-4.8 K/uL Monocytes # (Auto) 0.2 0.1-1.0 K/uL Eosinophils # (Auto) 0.00 0.00-0.70 K/uL Basophils # (Auto) 0.00 0.00-0.20 K/uL Absolute Immature Granulocyte (auto 0.03 0-1 K/uL Nucleated Red Blood Cells 0.0 0.0-0.19 % White Cell Morphology Comment See comments Sodium Level 137 136-145 mmol/L Potassium Level 4.1 3.5-5.1 mmol/L Chloride Level 101 101-111 mmol/L Carbon Dioxide Level 30 21-32 mmol/L Blood Urea Nitrogen 29 H 7-18 mg/dL Creatinine 1.3 0.5-1.3 mg/dL Glomerular Filtration Rate Calc 56 >90 mL/min Random Glucose 172 H 70-105 mg/dL Total Calcium 7.6 L 8.5-10.1 mg/dL Phosphorus Level 3.8 2.5-4.9 mg/dL Magnesium Level 2.20 1.80-2.40 mg/dL Total Bilirubin 1.0 0.2-1.0 mg/dL Direct Bilirubin 0.3 0.0-0.3 mg/dL Aspartate Amino Transf (AST/SGOT) 151 H 10-37 U/L Alanine Aminotransferase (ALT/SGPT) 31 12-78 U/L Alkaline Phosphatase 71 50-136 U/L Total Protein 6.0 6.0-8.3 g/dL Albumin 2.6 L 3.5-5.0 g/dL Thyroid Stimulating Hormone (TSH) 0.35 #L 0.36-3.74 uIU/mL Blood Gas Specimen Type Arterial Arterial Blood pH 7.460 H 7.350-7.450 Arterial Blood Partial Pressure CO2 37 35-48 mmHg Arterial Blood Partial Pressure O2 117.0 H 83.0-108.0 mmHg Arterial Blood HCO3 25.9 21.0-28.0 mmol/L Arterial Blood Oxygen Saturation 97.6 94.0-98.0 % Arterial Blood Base Excess 2.0 -2.0-3.0 mmol/L Hemoglobin (Blood Gas) 8.4 L 13.5-17.5 g/dL Sodium (Blood Gas) 137 136-145 MMOL/L Bedside Potassium (Blood Gas) 4.2 3.4-4.5 MMOL/L Bedside Chloride (Blood Gas) 102 98-107 MMOL/L Bedside Glucose (Blood Gas) 173 H 65-95 MG/DL Bedside Ionized Calcium (Blood Gas) 1.06 L 1.15-1.33 MMOL/L Bedside Lactic Acid (Blood Gas) 1.27 H 0.36-0.75 MMOL/L Blood Gas Temperature 37.0 35.5-37.0 CELSIUS Blood Gas Flow-by 15.00 0.00-15.00 L/min Blood Gas Vent Mode HFNC ROOM AIR FiO2 100.0 % Blood Gas Specimen Comment RR RN Troponin I High Sensitivity 81056 *H 4-75 ng/L Test 08/11/25 09:30 08/11/25 05:41 08/11/25 00:20 Range/Units Urine Color LIGHT-YELLOW YELLOW Urine Appearance CLEAR CLEAR Urine pH 5.0 5.0-8.0 Urine Specific Marcus 1.012 1.001-1.031 Urine Protein NEGATIVE NEGATIVE mg/dL Urine Glucose (UA) NEGATIVE NEGATIVE mg/dL Urine Ketones NEGATIVE NEGATIVE mg/dL Urine Occult Blood NEGATIVE NEGATIVE Urine Nitrate NEGATIVE NEGATIVE Urine Bilirubin NEGATIVE NEGATIVE mg/dL Urine Urobilinogen 0.2 0.2-1.0 mg/dL Urine Leukocyte Esterase NEGATIVE NEGATIVE Daniel/uL Hemoglobin A1c 5.3 4.0-6.0 % Estimated Average Glucose (eAG) 105 70-126 mg/dL Lactic Acid Level 2.3 0.8-2.5 mmol/L Triglycerides Level 58 30-200 mg/dL Cholesterol Level 157 # <200 mg/dL LDL Cholesterol 86 0-99 mg/dL HDL Cholesterol 57 29-71 mg/dL Prothrombin Time 11.1 9.6-11.6 SEC Prothromb Time International Ratio 1.05 0.85-1.15 Total Creatine Kinase 264 #H 21-232 U/L B-Type Natriuretic Peptide 2020 H 0-100 pg/mL Current Medications Medications (Trade) Dose Ordered Sig/Chaka Route PRN Reason Start Time Stop Time Status Last Admin Dose Admin Acetaminophen (TYLenol 325MG TAB) 650 mg Q6H PRN PO TEMPERATURE GREATER THAN 101.5 08/11/25 03:00 09/10/25 02:59 Aspirin (Aspirin 81mg Ec Tab) 81 mg DAILY PO 08/11/25 09:00 09/10/25 08:59 08/12/25 09:50 81 MG Clopidogrel Bisulfate (plaVIX 75MG) 75 mg DAILY PO 08/11/25 09:00 09/10/25 08:59 08/12/25 09:51 75 MG Diphenhydramine HCl (BENAdryl INJ) 50 mg ONCALL IV 08/12/25 07:00 08/13/25 06:59 Famotidine (Pepcid 20mg Vial) 20 mg ONCALL IV 08/12/25 07:00 08/13/25 06:59 Famotidine (Pepcid 20mg Tab) 20 mg DAILY PO 08/11/25 09:00 08/11/25 08:34 DC 08/11/25 08:17 20 MG Furosemide (LASix 20MG VIAL) 20 mg Q8H IV 08/11/25 08:30 09/10/25 08:29 08/12/25 08:21 20 MG Heparin Sodium (Porcine) (HEParin 5,000 UNIT VIAL) *calculation based on ACTUAL B... AD PRN IV HEPARIN PROTOCOL 08/11/25 02:00 09/10/25 01:59 Heparin Sodium/ Dextrose 250 ml @ 0 mls/hr Q6H IV 08/11/25 02:00 09/10/25 01:59 08/12/25 09:48 0 MLS/HR Hydralazine HCl (APRESOLine 20MG INJ) 10 mg Q6H PRN IV For:SBP above 160;DBP above 90 08/11/25 03:00 08/11/25 04:10 DC Labetalol HCl (TRANdate 20MG SYG) 10 mg Q4H PRN IV SBP >160 08/11/25 04:30 09/10/25 04:29 Morphine Sulfate (morPHINE 2MG SYG) 2 mg Q4H PRN IVP SEVERE PAIN (7-10) 08/11/25 03:30 08/18/25 03:29 Nitroglycerin (Nitrostat) 0.4 mg AD PRN SL CHEST PAIN 08/11/25 01:30 08/11/25 03:13 DC Nitroglycerin (Nitrostat) 0.4 mg PROTOCOL PRN SL CHEST PAIN 08/11/25 03:00 09/10/25 02:59 Norepinephrine 250 ml @ 24.338 mls/ hr PROTOCOL PRN IV KEEP MAP > 65 08/12/25 03:30 09/11/25 03:29 08/12/25 03:42 24.338 MLS/HR Ondansetron HCl (zoFRAN 4MG INJ) 4 mg Q6H PRN IV NAUSEA/VOMITING 08/11/25 03:00 09/10/25 02:59 Pantoprazole Sodium (PROTonix 40MG TAB) 40 mg DAILY PO 08/11/25 09:00 09/10/25 08:59 08/12/25 08:20 40 MG DIAGNOSTICS / RADIOLOGY: [ ] ASSESSMENT: [STEMI, POA 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 2D echo showed EF of 30 to 35% stage II diastolic dysfunction. Patient is pending still arterial ultrasound reading was performed but no results posted yet. Patient was evaluated by the drafter structural and that is pending left heart catheterization with Dr. Sanchez today 08/12/2025 in the afternoon. Patient was shaved for LHC and was little bit cath now some blood is oozing from the pubic area. Patient also has a history of cancer Dr. Vora investment strategist was consulted. Patient remains in ICU for now. We will continue to monitor patient in the meantime. A.m. labs. ] Admit patient to intensive care unit as inpatient status. Patient will be followed by critical care service. Patient will be followed by cardiology service. Place patient on telemetry monitoring. Continue heparin drip per hospital protocol Patient received Plavix 300 mg by mouth loading dose Continue [id number] mg by mouth daily Continue mg by mouth once daily Aspirin 162 mg by mouth times 1 Nitroglycerin sublingual 0.4 mg as needed for chest pain every 5 minutes, max 3 doses, hold for systolic blood pressure less than 100 mmHg. Supplemental oxygen to maintain O2 saturation greater 92%. Trend troponin every 6 hours x3 sets Monitor intake and output every shift Weight patient daily Patient received Lasix 20 mg IV times in the emergency department Consider resuming home medications once they have been reconciled At time of admission home medications not been reconciled. Hydralazine 10 mg IV every 4 hours for systolic blood pressure greater than 160 mmHg GI prophylaxis, famotidine DVT prophylaxis, patient is on heparin drip as stated above Critical Care Time: I spent ___51___ minutes of critical care time with the patient. I reviewed lab work, change the patient's medication, and coordinated protocol in the event of tachycardia or desaturation. The patient status remains unchanged ATTESTATION BY PHYSICIAN I have seen and examined the patient. I reviewed the documentation, medical decision making, and treatment plan as noted by the mid-level provider above. I agree with the findings and plan of care. Flaquito Rodriguez IV, MD, [facility] Aug 12, 2025 11:53
[2025-08-12] MEDS: Solu-medROL 40MG VIAL IVP ONE (12:33)
--- NOTE | 2025-08-12 12:37 | NUR ---
DR MARI MADE AWARE OF ELEVATED TEMP OF 100 WITH BLOOD TRANSFUSION. ORDERS RECEIVED TO STOP TRANSFUSION UNTIL AFTER BENADRYL, SOLUMEDROL AND TYLENOL ADM. THAN RESTART TRANSFUSION.
--- NOTE | 2025-08-12 16:15 | PN ---
[facility] PROGRESS NOTE Date Patient Seen: Aug 12, 2025 Time of Visit: 16:11 Supervising Physician: VEENA MARI MD Primary Care Physician: FLAQUITO LEON IV Outpatient Specialists: [ ] Inpatient Consults: NANNETTE PROBLEM LIST: Acute ST-elevation myocardial infarction on admission, not candidate for emergent LHC as patient presented 48 hours after incident Acute pulmonary edema leading to acute hypoxemic respiratory failure Acute on chronic diastolic heart failure secondary to acute STEMI Anemia of chronic disease Primary hypertension Obstructive coronary artery disease Atherosclerosis History of neuroendocrine cancer History of CABG History of cardiac stent INTERVAL HISTORY: 80 years old man seen and evaluated. Events of the last 24 hours noted and clinical chart reviewed with nurse. No fever reported, no nausea and no vomiting. He is on heparin drip, denies chest pain, denies palpitations. Patient is scheduled to undergo LHC today Voiding, awake and following commands No acute distress REVIEW OF SYSTEMS: 12 point ROS reviewed with patient. Pertinent positives mentioned above. Otherwise negative. PHYSICAL EXAM: GENERAL: alert, weak, awake oriented x 3 HEENT: EOMI, Sclera non icteric, moist mucosa NECK: Supple, no JVD, trachea midline LUNGS: Clear breath sounds bilaterally. No wheezes HEART: Regular rate and rhythm. Normal S1 and S2, without murmurs ABD: Abdomen soft, nontender. Bowel sounds present EXT: No clubbing cyanosis or edema NEURO: Alert and oriented to person, follows commands Vital Signs (last 8hr) Date Time Temp Pulse Resp B/P (MAP) Pulse Ox O2 Delivery O2 Flow Rate FiO2 08/12/25 12:33 100.0 08/12/25 08:42 99.9 08/12/25 08:18 97.5 LABS: Hematology Labs: Test 08/12/25 03:14 Range/Units White Blood Count 5.2 4.8-10.8 K/uL Red Blood Count 2.46 L 4.50-6.20 MIL/uL Hemoglobin 7.8 L 14.0-18.0 g/dL Hematocrit 23.0 L 42-54 % Mean Corpuscular Volume 93.5 79-99 fL Mean Corpuscular Hemoglobin 31.7 27.0-33.0 pg Mean Corpuscular Hemoglobin Concent 33.9 32.0-36.0 g/dL Red Cell Distribution Width 13.5 11.0-15.5 % Platelet Count 129 #L 130-400 K/uL Mean Platelet Volume 9.8 7.5-10.5 fL Immature Granulocyte % (Auto) 0.6 0-1 % Neutrophils (%) (Auto) 90.0 H 40.0-77.0 % Lymphocytes (%) (Auto) 5.0 L 21.0-51.0 % Monocytes (%) (Auto) 4.4 3.0-13.0 % Eosinophils (%) (Auto) 0.0 0.0-8.0 % Basophils (%) (Auto) 0.0 0.0-5.0 % Neutrophils # (Auto) 4.7 1.8-7.7 K/uL Lymphocytes # (Auto) 0.3 L 1.0-4.8 K/uL Monocytes # (Auto) 0.2 0.1-1.0 K/uL Eosinophils # (Auto) 0.00 0.00-0.70 K/uL Basophils # (Auto) 0.00 0.00-0.20 K/uL Absolute Immature Granulocyte (auto 0.03 0-1 K/uL Nucleated Red Blood Cells 0.0 0.0-0.19 % White Cell Morphology Comment See comments Chemistry Labs: Test 08/12/25 03:14 08/11/25 20:32 08/11/25 05:41 08/11/25 00:20 Range/Units Sodium Level 137 136-145 mmol/L Potassium Level 4.1 3.5-5.1 mmol/L Chloride Level 101 101-111 mmol/L Carbon Dioxide Level 30 21-32 mmol/L Blood Urea Nitrogen 29 H 7-18 mg/dL Creatinine 1.3 0.5-1.3 mg/dL Glomerular Filtration Rate Calc 56 >90 mL/min Random Glucose 172 H 70-105 mg/dL Total Calcium 7.6 L 8.5-10.1 mg/dL Phosphorus Level 3.8 2.5-4.9 mg/dL Magnesium Level 2.20 1.80-2.40 mg/dL Total Bilirubin 1.0 0.2-1.0 mg/dL Direct Bilirubin 0.3 0.0-0.3 mg/dL Aspartate Amino Transf (AST/SGOT) 151 H 10-37 U/L Alanine Aminotransferase (ALT/SGPT) 31 12-78 U/L Alkaline Phosphatase 71 50-136 U/L Total Protein 6.0 6.0-8.3 g/dL Albumin 2.6 L 3.5-5.0 g/dL Thyroid Stimulating Hormone (TSH) 0.35 #L 0.36-3.74 uIU/mL Troponin I High Sensitivity 07330 *H 4-75 ng/L Hemoglobin A1c 5.3 4.0-6.0 % Estimated Average Glucose (eAG) 105 70-126 mg/dL Lactic Acid Level 2.3 0.8-2.5 mmol/L Triglycerides Level 58 30-200 mg/dL Cholesterol Level 157 # <200 mg/dL LDL Cholesterol 86 0-99 mg/dL HDL Cholesterol 57 29-71 mg/dL Total Creatine Kinase 264 #H 21-232 U/L B-Type Natriuretic Peptide 2020 H 0-100 pg/mL Coagulation Labs: Test 08/12/25 09:25 08/11/25 00:20 Range/Units Activated Partial Thromboplast Time 55.0 #H 26.3-35.5 SEC Prothrombin Time 11.1 9.6-11.6 SEC Prothromb Time International Ratio 1.05 0.85-1.15 DIAGNOSTICS / RADIOLOGY RESULTS: [ ] PLAN Hemodynamically stable for [facility] today Spoke to Dr. Sanchez one to one today about the case Continue ICU medical management Continue heparin drip NEURO: Minimize central acting medications as possible. Fall Precautions. Well lighted room through the day and minimize interruptions through the night to prevent acute delirium. PULMONARY: Supplemental 02 as needed Titrate Fio2 to keep Spo2 > or = 90% DuoNebs and CPT as needed IS hourly while awake for pulmonary hygiene Out of bed to chair as tolerated VAP Bundle Vent/BIPAP Settings: [ ] Driving pressure: [ ] P Plat: [ ] Static C: [ ] Static R: [ ] P/F Ratio: [ ] CARDIOVASCULAR: Follow hemodynamics. Titrate vasopressor to keep MAP >65 or systolic blood pressure >95mmHg GI & NUTRITION: Continue nutritional support Aspirations precautions Prokinetic agents and laxatives as needed KIDNEYS & ELECTROLYTES: Strict monitoring of intake and output Daily weights Avoid nephrotoxic agents Monitor electrolytes and replace as needed Goal urine output of 30mL/hr or 0.5mL/kg/hr ENDOCRINE: Maintain blood glucose between 100-180 at all times. Insulin sliding scale for blood glucose management INFECTIOUS DISEASE: Trend temperature. Mariano-culture if febrile. Micro: [ Pending ] Antibiotics: [ ] HEMATOLOGY & COAGULATION: Monitor H&H. Keep Hgb > 7 Transfuse 1 unit of PRBC for Hgb < 7 Transfuse 1 pack of platelets of platelets < 20, 000 Watch for any signs and symptoms of bleeding SKIN: Pressure ulcer prevention per facility protocol Rehab: PT/OT Prophylaxis: GI: [ Protonix 40 mg ] DVT: [ Heparin drip ] Code Status: Full Resuscitation Disposition: [ continue ICU management ] Other: Total patient care time exceeds 35 minutes I personally scribed for VEENA MARI MD ([email or web address]) on 08/12/25 at 16:15. Electronically submitted by Flaquito Bates ([email or web address]). VEENA MARI MD Aug 12, 2025 16:15
[2025-08-12 16:25] LABS: NUCLEATED RED BLOOD CELLS 0.0 % (0.0-0.19); PLATELET COUNT (AUTO) 178 K/uL (130-400); RED BLOOD CELL COUNT(AUTO) 2.83 MIL/uL (4.50-6.20); RED CELL DISTRIBUTION WIDTH 14.1 % (11.0-15.5); WHITE BLOOD COUNT (AUTO) 7.0 K/uL (4.8-10.8)
[2025-08-12 16:39] LABS: IMMATURE GRANULOCYTE ABSOLUTE 0.04 K/uL (0-1)
--- NOTE | 2025-08-12 17:31 | PN ---
Cardiology Progress Note Date of Service: 08/12/2025 Attending Paleologist: Dr. Fausto Sanchez Reason for Consult: ACS-STEMI Problem List: -ACS-STEMI -Acute hypoxemic respiratory failure, currently on HFNC -Cardiogenic shock -HFrEF (LVEF: 30-35% by echo done 08/11/2025) -Acute blood loss anemia s/p PRBC transfusion -Postprocedure right groin pseudoaneurysm s/p coil embolization (7 coils) done on 08/04/2025 -Stage IV neuroendocrine cancer with metastasis -Metastatic liver lesions s/p ablation in July 2025 at [facility] in [place], [place] -Left renal mass identified on CT scan done on 08/03/2025 -HTN -HLP -Ischemic CVA -CAD s/p CABG done in 1994 s/p LHC/coronary angiogram done in 2014 which identified a patent stent in the LAD, and a patent SVG to the RCA, but all other grafts were occluded -Nephrolithiasis Subjective: This is an 80y/o male who was seen and evaluated at the bedside today. The patient denies any active complaints including chest pain, chest pressure, palpitations, or shortness of breath. He is now on IV vasopressor support with norepinephrine and remains on supplemental oxygen therapy via HFNC. Vitals/Labs Vital Signs Date Time Temp Pulse Resp B/P (MAP) Pulse Ox O2 Delivery O2 Flow Rate FiO2 08/12/25 12:33 100.0 08/12/25 07:49 49 18 N/Cannula Oximizer Hi LPM 8.0 08/12/25 07:37 101/55 (70) 91 08/12/25 06:30 21 General: Awake and alert. No acute distress. Chronically ill appearing. Weak and frail. HEENT: Normocephalic, atraumatic. EOMI. Oral mucosa was moist. Neck: No masses, JVD, or carotid bruits. Lungs: SCM. Bilateral air entry. Diminished breath sounds noted throughout. Currently on supplemental oxygen therapy via HFNC. Cardio: Regular rate. Normal S1 and S2, +S4. No murmurs, rubs, or gallops. Abdomen: Soft, nontender, nondistended. No organomegaly. Normoactive bowel sounds x 4 quadrants. Extremities. No edema, clubbing, or cyanosis. Diminished pulses noted throughout. Diffuse ecchymosis noted to the bilateral groins. Palpable mass noted to the right groin. Neuro: Cranial nerves II through XII are grossly intact. No focal deficits identified. Laboratory Tests 08/12/25 03:14 +- 08/12/25 16:02 Assessment: -ACS-STEMI -Acute hypoxemic respiratory failure, currently on HFNC .- - --..-+ + -.-3..3-.-.-3. --3+-Cardiogenic shock -HFrEF (LVEF: 30-35% by echo done 08/11/2025) -Acute blood loss anemia s/p PRBC transfusion -Postprocedure right groin pseudoaneurysm s/p coil embolization (7 coils) done on 08/04/2025 -Stage IV neuroendocrine cancer with metastasis -Metastatic liver lesions s/p ablation in July 2025 at [facility] in [place], [place] -Left renal mass identified on CT scan done on 08/03/2025 -HTN -HLP -Ischemic CVA -CAD s/p CABG done in 1994 s/p LHC/coronary angiogram done in 2014 which identified a patent stent in the LAD, and a patent SVG to the RCA, but all other grafts were occluded -Nephrolithiasis Plan: 1. ACS-STEMI -HS troponin I peak: 24669 -Currently in cardiogenic shock and on IV vasopressor support with norepinephrine. -In light of the patient's drop in HGB to less than 8.0g/dL, with recent coil embolization to the right groin pseudoaneurysm, we will administer 1 unit of PRBCs and obtain an ultrasound of the bilateral groins to assess the stability of his femoral access sites. -In addition, we will reattempt to contract the patient's primary Oncologist, Dr. Gillis, at [facility], in order to assess the patient's overall prognosis/candidacy for further ischemic cardiac workup with a LHC/coronary angiogram with possible intervention. -We will tentatively schedule the patient for a LHC/coronary angiogram with possible intervention in the AM as long as his hemoglobin remains greater than 8.0g/dL. He will have IV Benadryl, IV Solu-medrol, and IV famotidine marketing operations assistant to the Press Operator Apprentice due to his contrast allergy. -In the meantime, he will continue on goal directed ACS therapy which includes aspirin 81 mg daily, clopidogrel 75 mg daily, and IV heparin infusion (ACS protocol). He is not a candidate for BB therapy due to the need for IV vasopressor support, nor is he a candidate for statin therapy due to his underlying allergy. 2. Cardiogenic shock -24H urine output: 1500 mL -BNP: 2019 -The patient remains on IV vasopressor supoort with norepinephrine, so he is not a candidate for GDMT with BB therapy, ACEI/ARB/ARNI therapy, or aldosterone antagonist therapy. -In the meantime, the patient will conintue on furosemide 20 mg iV Q8H in order to target a 2X increase in the BUN, 30% rise in the creatinine, ir a BNP level cut in half. -We will repeat a BNP level in the AM in order to determine whether diuretic therapy warrants adjustement. -Please record strict I/O's, daily weighs, and restrict sluids to less than 2.0L/day This case was discussed with my Supervising Physician, Dr. Fausto Sanchez, and the above mentioned plan was formulated and agreed upon. -Progress Note written by Carolyn Liao, MSN, PRODUCTION CONTROLLER, AGACNP-BC CAROYLN LIAO Aug 12, 2025 17:31
[2025-08-13] VITALS (39 sets, daily range): BP systolic 97–120; BP diastolic 37–69; PULSE 51–75; RESP 10–25; TEMP 97.5–98.2; O2SAT 95–99
[2025-08-13 05:00] LABS: IMMATURE GRANULOCYTE ABSOLUTE 0.04 K/uL (0-1); NUCLEATED RED BLOOD CELLS 0.0 % (0.0-0.19); PLATELET COUNT (AUTO) 189 K/uL (130-400); RED BLOOD CELL COUNT(AUTO) 2.90 MIL/uL (4.50-6.20); RED CELL DISTRIBUTION WIDTH 14.6 % (11.0-15.5); WHITE BLOOD COUNT (AUTO) 10.5 K/uL (4.8-10.8)
[2025-08-13 05:14] LABS: ASPARTATE AMINOTRANSFERASE 57.0 U/L (10-37); CREATININE 1.4 mg/dL (0.5-1.3); GLOMERULAR FILTR. RATE CALC 51.0 mL/min (>90); GLUCOSE,RANDOM 155.0 mg/dL (70-105); SODIUM SERUM 138.0 mmol/L (136-145); TOTAL PROTEIN, SERUM 6.0 g/dL (6.0-8.3); UREA NITROGEN, BLOOD 47.0 mg/dL (7-18)
[2025-08-13] MEDS: FAMOTIDINE 20MG VIAL IV SCH (07:00)
[2025-08-13] MEDS ORDERED: HEParin-NS 1,000 UNIT/500 ML 1,000 ML IV ONE (07:24)
[2025-08-13] MEDS ORDERED: LIDOCAINE HCL 400MG/20ML VIAL ONE (07:24)
[2025-08-13] MEDS ORDERED: VERAPAMIL HCL 2.5 MG/ML VIAL ONE (07:24)
[2025-08-13] MEDS ORDERED: IOHEXOL 350 MG/ML 100ML INFUS..BTL IV ONE (07:24)
[2025-08-13] MEDS ORDERED: NITROGLYCERIN 50MG VIAL ONE (07:24)
[2025-08-13] MEDS ORDERED: MIDAZOLAM HCL 1 MG/ML 2ML VIAL ONE (07:49)
[2025-08-13] MEDS ORDERED: HEParin-NS 1,000 UNIT/500 ML 500 ML IV ONE ×2 (08:00→08:43)
[2025-08-13] MEDS ORDERED: ASPIRIN 325MG EC TAB PO ONE (10:11)
[2025-08-13] MEDS: 0.9%NACL 1000ML 1,000 ML IV SCH (11:04)
--- NOTE | 2025-08-13 11:05 | PRN ---
PROCEDURE NOTE Indications: 1. ACS-STEMI 2. Cardiogenic shock 3. Acute HFrEF (LVEF: 30-35% by echo done 08/11/2025) 4. 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 New endocrine tumor with metastasis 6. Anemia 7. CAD s/p CABG Procedures: Femoral angiogram, LHC, coronary angiogram, PCI with balloon angioplasty, balloon lithotripsy and LIONEL placement in the mid and distal left main, ostial LAD, and proximal-mid LAD. Introduction: After informed written consent was obtained, the patient was brought to the Catheterization Lab in the usual fasting state. Following sterile prep and mouna pe, a time out was performed, then moderate sedation was administered, 25mcg of Fentanyl, then 1% Lidocaine was infiltrated into the left femoral groin. Using a Modified Seldinger technique, a 6Fr Sheath was inserted into the left common femoral artery. While under fluoroscopic guidance, diagnostic coronary catheters were advanced over a wire into the central circulation where they were aspirated, flushed and placed to pressure monitoring, once the wire was removed. Coronary Angio: The left and right coronary arteries were engaged with appropriate catheters and angiography was performed under continuous pressure monitoring. Left Heart Catheterization: A JR4 catheter was inserted into the LV and the pressure was recorded, then the catheter was removed from the LV. Cardiac Findings: Co-dominant system LM: Medium caliber vessel with 90% stenosis in the distal LM. The vessel b ifurcates into the LAD and LCX. LAD: Medium caliber vessel with 99% stenosis (subtotal occlusion) with thrombus formation in the ostial LAD. There is a patent stent in the proximal LAD. There is 80% stenosis in the proximal mid LAD. JIGAR 2 flow distally. Diagonal 1: Small caliber vessel mild luminal irregularities LCx: Large caliber vessel with 50% stenosis in the proximal LCX. OM1: Medium caliber vessel with mild luminal irregularities RCA: Small caliber vessel with 70% stenosis in the ostial RCA and diffuse 90% stenosis in the mid RCA. The rest of the vessel has mild luminal irregularities. RPDA: Small caliber vessel mild luminal irregularities. RPLV: Small caliber vessel with mild luminal irregularities. LVEDP: 34mmHg SVG-distal RCA: Widely patent SVG-OM1: 100% stenosis in the ostial segment of the vein graft Medications given: Fentanyl 50mcg, heparin 75 units/kg x1 dose, clopidogrel 300 mg x 1 dose, aspirin 325 mg x 1 dose. Coronary Intervention: XB 3.5 guide catheter Guide wire: 0.014 runthrough guidewire, 0.014 wiggle guidewire After reviewing the above-mentioned findings the decision was made to intervene on the LAD and left main. The XB 3.5 guide catheter was advanced into the ostium of the left main. We then advanced the 0.014 runthrough guidewire across the area stenosis and into the distal LAD. We then performed balloon angioplasty (2.5 x 20 mm > 3.0 x 20 mm > 3.5 x 20 mm) in the proximal-mid LAD, ostial LAD, and distal left main. We then exchanged the 0.014 runthrough gu idewire for a 0.014 wiggle guidewire, using a 0.014 fine cross catheter. We then performed balloon lithotripsy (shockwave 3.0 x 12 mm) in the proximal-mid LAD and ostial LAD. We then performed balloon lithotripsy (shockwave 4.0 by 12 mm) in the distal left main. We then performed successful LIONEL placement, Xience justin point 4.0 x 15 mm in the distal left main, Xience justin point 3.5 x 15 mm in the ostial LAD and Xience justin point 3.0 x 23 mm in the proximal to mid LAD. The stent in the left main was post dilated using a 4.0 by 12 mm noncompliant balloon, the stent in the ostial LAD and proximal LAD were post dilated using an NC 3.5 x 12 mm balloon achieving optimal results. Repeat angiography that revealed a widely patent stents in the left main, ostial LAD, proximal LAD, and proximal LAD. The 0.014 wiggle guidewire and XB 3.5 guide catheter were then removed. The patient tolerated the procedure well. Complications: None Conscious Sedation Monitoring: Under my direct order and supervision, medication for moderate conscious sedation was administered by the nursing staff and the patients level of consciousness and physiological status was monitored by an independent trained nurse. Closure of Access Site: After the case completed the sheath was pulled and a 6Fr Angioseal was deployed in the right common femoral artery without complication. Conclusion: 1. ACS-STEMI, 90% stenosis in the distal left main, 99% stenosis in the ostial LAD, 80% stenosis in the proximal to mid LAD, status post successful treatment with balloon angioplasty, balloon lithotripsy, and LIONEL placement, Xience justin point 4.0 x 15 mm in the distal left main, Xience skypoint 3.5 x 15 mm in the ostial LAD, and Xience justin point 3.0 x 23 mm in the proximal to mid LAD 2. Patent SVG-distal RCA, 100% stenosis in SVG-OM1 3. Nonobstructive CAD in the LCX 4. Cardiogenic shock, resolved (norepinephrine IV drip was discontinued at the end of the case) 3. Acute HFrEF (LVEF: 30-35% by echo done 08/11/2025) Recommendation: 1. Continue goal directed medical therapy. 2. Continue aspirin 81 mg daily and clopidogrel 75 mg daily. The patient will remain on DAPT for a minimum of 1 year as per ACS guidelines. 3. Please stop the IV heparin infusion 4. Please start NS at 100 mL/hr x 3 hours 5. Groin precautions 6. 4 hours of bedrest DUANE MAYFIELD MD Aug 13, 2025 11:05
[2025-08-13] MEDS: PoTASSium chloRIDE 20MEQ ER 20 MEQ ERTAB PO ONE (11:31)
--- NOTE | 2025-08-13 11:57 | NUR ---
[facility] ICU Skin Assessment: Patient assessed by wound healing team. Patient with no wounds or skin breakdown noted. Assessment and recommendations provided to primary nurse. Education provided.
--- NOTE | 2025-08-13 12:17 | PN ---
[facility] PROGRESS NOTE Date of Service: Aug 13, 2025 Time of Service: 12:[address] An SUBJECTIVE: [08/11/25 Mr. Chapa is an 80-year-old male that was seen and examined today on 08/11/25. Patient is a good historian of personal health. Patient's , Sol Chapa is at bedside. Patient reports that he came to the emergency department with a chief complaint of chest pain. Onset was at midnight. Location is midsternal. Duration is on and off. Character is described as pressure. Patient reports that pain radiates to the jaw, neck, and bilateral arms. There was no alleviating factors. There was no aggravating factors. Patient reports associated shortness and breath. STEMI alert was called in the emergency department and emergency room physician spoke to vacuum filter operator who de activated STEMI alert. Patient was started on a heparin drip. Chest x-ray is significant for pulmonary edema and congestion. Labs are significant for BUN of , creatinine 1.1, calcium 8.3, BNP 2020, CK 264, troponin 54, ABG showed pH of 7.42, pCO2 of 33, PO2 67.8 On room air, lactic acid is elevated at 2.45 2 08/12/25 patient was seen by nurse practitioner and physician during rounding in room 219 Chest x-ray showed cardiomegaly and pulmonary vascular congestion/pulmonary edema and also some sternal wires possibly s/p CABG changes. 2D echo showed EF of 30 to 35% stage II diastolic dysfunction. Patient is pending still arterial ultrasound reading was performed but no results posted yet. Patient was evaluated by the vacuum filter operator and that is pending left heart catheterization with Dr. Sanchez today 08/12/2025 in the afternoon. Patient was shaved for [facility] and was little bit cath now some blood is oozing from the pubic area. Patient also has a history of cancer Dr. Vora disposal plant operator was consulted. Patient remains in ICU for now. We will continue to monitor patient in the meantime. A.m. labs. 08/13/25 patient was seen by nurse practitioner and physician during rounding in room 219. Patient is s/p left heart catheterization on 08/16/2025 and three stents were placed by Dr. Sanchez. Ultrasound venous showed multilevel atherosclerotic changes in bilateral lower limb arteries. Biphasic flow pattern in multiple arterial segments in both lower limbs suggestive of reduced arterial compliance and early arterial insufficiency. We will continue to monitor patient in the ICU medical management. Patient is off heparin and norepinephrine. Patient is pending PT evaluation. CC 10.5. Creatinine has wo rsened today is 1.4 BUN 47. We will continue to monitor patient in the meantime. A.m. labs] REVIEW OF SYSTEMS CONSTITUTIONAL: Denies fevers, chills, or night sweats. No unintentional weight loss reported. NEUROLOGICAL: Denies headache, amaurosis fugax, motor weakness, sensory deficit, vertigo/spinning sensation, gait abnormalities, or tremors. ENT: No hearing loss, otalgia, otorrhea, rhinitis, rhinorrhea, hoarseness, or sore throat. CARDIOVASCULAR: Denies any exertional angina, dyspnea on exertion, orthopnea, paroxysmal nocturnal dyspnea, palpitations, life-threatening arrhythmias, claudication.s/p LHC PULMONARY: Denies any shortness of breath, cough, phlegm/sputum, hemoptysis, pleuritic chest pain. SLEEP: Denies morning headaches, daytime somnolence or napping. Denies difficulty falling asleep, staying asleep, waking from sleep. Denies knowledge of snoring. GASTROINTESTINAL: Denies any type of dysphagia to either liquids or solids. Denies nausea, vomiting, pyrosis, early satiety, abdominal pain, diarrhea, constipation, or changes in stool consistency or caliber. Denies coffee-ground emesis, hematemesis, hematochezia, or melanotic stools. GENITOURINARY: Denies frequency, urgency, nocturia, hematuria or incontinence (Storage/Irritative symptoms.) Low urinary stream, straining to void, urinary intermittency or hesitancy, splitting of the voiding stream, terminal dribbling. ENDOCRINOLOGIC: Denies polyuria, polydipsia, polyphagia or heat/cold intolerances. HEMATOLOGIC: Denies thrombophilia/previous clots, or coagulopathy/bleeding disorders. ONCOLOGIC: Denies personal history of malignancy. DERMATOLOGIC: Denies rashes or pruritus. PSYCHIATRIC: Denies any suicidal or homicidal ideation. Denies hallucinations. PHYSICAL EXAM GENERAL APPEARANCE: The patient is awake, alert, and oriented, in no acute cardiopulmonary distress. NEUROLOGICAL: Cranial nerves II-XII grossly intact. Motor is 5/5 in bilateral upper and lower extremities proximal to distal. No sensory deficits. HEENT: Face is symmetric. Pupils are equal and reactive. Extraocular movements are intact. NECK: Supple. No JVD. No thyromegaly. No submental, submandibular, pre- /postauricular, occipital or supraclavicular lymphadenopathy. CHEST: Normal chest expansion. No Telemetry. LUNGS: Absence of any rales, rhonchi or any wheezing. CARDIOVASCULAR: Regular. S1 and S2 normal. No appreciable rubs, murmurs or gallops. ABDOMEN: Soft, nontender, and nondistended. There is no rebound, voluntary guarding, or rigidity. : Deferred. No Matthews. EXTREMITIES: Non-edematous and not cyanotic. No clubbing. Good capillary refill. SKIN: No skin breakdown. Vital Signs (last 8hr) Date Time Temp Pulse Resp B/P (MAP) Pulse Ox O2 Delivery O2 Flow Rate FiO2 08/13/25 11:00 97.5 08/13/25 07:15 98.2 08/13/25 07:15 99 Nasal Cannula* 4 36 08/13/25 07:00 98.2 55 16 112/50 (70) 93 08/13/25 06:42 75 18 N/Cannula Oximizer Hi LPM 3.0 08/13/25 05:37 51 13 109/50 (69) 96 08/13/25 05:24 59 17 113/62 (79) 95 08/13/25 05:07 52 23 106/60 (75) 96 08/13/25 04:52 52 20 111/53 (72) 93 08/13/25 04:22 54 23 107/61 (76) 94 LABS: Laboratory: Test 08/13/25 04:51 08/12/25 03:14 08/12/25 02:53 08/11/25 20:32 Range/Units White Blood Count 10.5 # 4.8-10.8 K/uL Red Blood Count 2.90 L 4.50-6.20 MIL/uL Hemoglobin 8.9 L 14.0-18.0 g/dL Hematocrit 26.0 L 42-54 % Mean Corpuscular Volume 89.7 79-99 fL Mean Corpuscular Hemoglobin 30.7 27.0-33.0 pg Mean Corpuscular Hemoglobin Concent 34.2 32.0-36.0 g/dL Red Cell Distribution Width 14.6 11.0-15.5 % Platelet Count 189 130-400 K/uL Mean Platelet Volume 9.6 7.5-10.5 fL Immature Granulocyte % (Auto) 0.4 0-1 % Neutrophils (%) (Auto) 90.0 H 40.0-77.0 % Lymphocytes (%) (Auto) 3.3 L 21.0-51.0 % Monocytes (%) (Auto) 6.2 3.0-13.0 % Eosinophils (%) (Auto) 0.0 0.0-8.0 % Basophils (%) (Auto) 0.1 0.0-5.0 % Neutrophils # (Auto) 9.5 H 1.8-7.7 K/uL Lymphocytes # (Auto) 0.4 L 1.0-4.8 K/uL Monocytes # (Auto) 0.7 0.1-1.0 K/uL Eosinophils # (Auto) 0.00 0.00-0.70 K/uL Basophils # (Auto) 0.01 0.00-0.20 K/uL Absolute Immature Granulocyte (auto 0.04 0-1 K/uL Nucleated Red Blood Cells 0.0 0.0-0.19 % Activated Partial Thromboplast Time 46.7 H 26.3-35.5 SEC Sodium Level 138 136-145 mmol/L Potassium Level 3.8 3.5-5.1 mmol/L Chloride Level 102 101-111 mmol/L Carbon Dioxide Level 28 21-32 mmol/L Blood Urea Nitrogen 47 H 7-18 mg/dL Creatinine 1.4 H 0.5-1.3 mg/dL Glomerular Filtration Rate Calc 51 >90 mL/min Random Glucose 155 H 70-105 mg/dL Total Calcium 7.8 L 8.5-10.1 mg/dL Magnesium Level 2.40 1.80-2.40 mg/dL Total Bilirubin 1.1 H 0.2-1.0 mg/dL Aspartate Amino Transf (AST/SGOT) 57 H 10-37 U/L Alanine Aminotransferase (ALT/SGPT) 15 12-78 U/L Alkaline Phosphatase 65 50-136 U/L Total Protein 6.0 6.0-8.3 g/dL Albumin 2.5 L 3.5-5.0 g/dL White Cell Morphology Comment See comments Phosphorus Level 3.8 2.5-4.9 mg/dL Direct Bilirubin 0.3 0.0-0.3 mg/dL Thyroid Stimulating Hormone (TSH) 0.35 #L 0.36-3.74 uIU/mL Blood Gas Specimen Type Arterial Arterial Blood pH 7.460 H 7.350-7.450 Arterial Blood Partial Pressure CO2 37 35-48 mmHg Arterial Blood Partial Pressure O2 117.0 H 83.0-108.0 mmHg Arterial Blood HCO3 25.9 21.0-28.0 mmol/L Arterial Blood Oxygen Saturation 97.6 94.0-98.0 % Arterial Blood Base Excess 2.0 -2.0-3.0 mmol/L Hemoglobin (Blood Gas) 8.4 L 13.5-17.5 g/dL Sodium (Blood Gas) 137 136-145 MMOL/L Bedside Potassium (Blood Gas) 4.2 3.4-4.5 MMOL/L Bedside Chloride (Blood Gas) 102 98-107 MMOL/L Bedside Glucose (Blood Gas) 173 H 65-95 MG/DL Bedside Ionized Calcium (Blood Gas) 1.06 L 1.15-1.33 MMOL/L Bedside Lactic Acid (Blood Gas) 1.27 H 0.36-0.75 MMOL/L Blood Gas Temperature 37.0 35.5-37.0 CELSIUS Blood Gas Flow-by 15.00 0.00-15.00 L/min Blood Gas Vent Mode HFNC ROOM AIR FiO2 100.0 % Blood Gas Specimen Comment RR RN Troponin I High Sensitivity 33282 *H 4-75 ng/L Current Medications Medications (Trade) Dose Ordered Sig/Chaka Route PRN Reason Start Time Stop Time Status Last Admin Dose Admin Acetaminophen (TYLenol 325MG TAB) 650 mg Q6H PRN PO TEMPERATURE GREATER THAN 101.5 08/11/25 03:00 09/10/25 02:59 08/12/25 12:33 650 MG Aspirin (Aspirin 81mg Ec Tab) 81 mg DAILY PO 08/11/25 09:00 09/10/25 08:59 08/12/25 09:50 81 MG Clopidogrel Bisulfate (plaVIX 75MG) 75 mg DAILY PO 08/11/25 09:00 09/10/25 08:59 08/12/25 09:51 75 MG Diphenhydramine HCl (BENAdryl INJ) 50 mg ONCALL IV 08/12/25 07:00 08/13/25 06:59 DC 08/13/25 07:00 50 MG Famotidine (Pepcid 20mg Vial) 20 mg ONCALL IV 08/12/25 07:00 08/13/25 06:59 DC 08/13/25 07:00 20 MG Famotidine (Pepcid 20mg Tab) 20 mg DAILY PO 08/11/25 09:00 08/11/25 08:34 DC 08/11/25 08:17 20 MG Furosemide (LASix 20MG VIAL) 20 mg Q8H IV 08/11/25 08:30 09/10/25 08:29 08/13/25 11:31 20 MG Heparin Sodium (Porcine) (HEParin 5,000 UNIT VIAL) *calculation based on ACTUAL B... AD PRN IV HEPARIN PROTOCOL 08/11/25 02:00 08/13/25 10:35 DC Heparin Sodium/ Dextrose 250 ml @ 0 mls/hr Q6H IV 08/11/25 02:00 08/13/25 10:35 DC 08/12/25 09:48 0 MLS/HR Hydralazine HCl (APRESOLine 20MG INJ) 10 mg Q6H PRN IV For:SBP above 160;DBP above 90 08/11/25 03:00 08/11/25 04:10 DC Labetalol HCl (TRANdate 20MG SYG) 10 mg Q4H PRN IV SBP >160 08/11/25 04:30 09/10/25 04:29 Morphine Sulfate (morPHINE 2MG SYG) 2 mg Q4H PRN IVP SEVERE PAIN (7-10) 08/11/25 03:30 08/18/25 03:29 Nitroglycerin (Nitrostat) 0.4 mg AD PRN SL CHEST PAIN 08/11/25 01:30 08/11/25 03:13 DC Nitroglycerin (Nitrostat) 0.4 mg PROTOCOL PRN SL CHEST PAIN 08/11/25 03:00 09/10/25 02:59 Norepinephrine 250 ml @ 24.338 mls/ hr PROTOCOL PRN IV KEEP MAP > 65 08/12/25 03:30 09/11/25 03:29 08/12/25 03:42 24.338 MLS/HR Ondansetron HCl (zoFRAN 4MG INJ) 4 mg Q6H PRN IV NAUSEA/VOMITING 08/11/25 03:00 09/10/25 02:59 Pantoprazole Sodium (PROTonix 40MG TAB) 40 mg DAILY PO 08/11/25 09:00 09/10/25 08:59 08/13/25 11:31 40 MG Sodium Chloride 1,000 ml @ 100 mls/hr Q10H IV 08/13/25 11:00 08/13/25 13:59 08/13/25 11:04 100 MLS/HR DIAGNOSTICS / RADIOLOGY: [ ] ASSESSMENT: [STEMI, POA Systolic and diastolic congestive heart failure EF 30 to 35% POA Chronic multifactorial anemia, POA Uncontrolled Hypertension] History of CABG x4 History of Cardiac stent placement History of liver mass/cancer s/p treatment by [facility] ] PLAN: [ Patient is s/p left heart catheterization on 08/16/2025 and three stents were placed by Dr. Sanchez. Ultrasound venous showed multilevel atherosclerotic changes in bilateral lower limb arteries. Biphasic flow pattern in multiple arterial segments in both lower limbs suggestive of reduced arterial compliance and early arterial insufficiency. We will continue to monitor patient in the ICU medical management. Patient is off heparin and norepinephrine. Patient is pending PT evaluation. CC 10.5. Creatinine has worsened today is 1.4 BUN 47. We will continue to monitor patient in the meantime. A.m. labs Chest x-ray showed cardiomegaly and pulmonary vascular congestion/pulmonary edema and also some sternal wires possibly s/p CABG changes. 2D echo showed EF of 30 to 35% stage II diastolic dysfunction. Patient is pending still arterial ultrasound reading was performed but no results posted yet. Patient also has a history of cancer Dr. Vora disposal plant operator was consulted. Place patient on telemetry monitoring. Aspirin 162 mg by mouth times 1 Nitroglycerin sublingual 0.4 mg as needed for chest pain every 5 minutes, max 3 doses, hold for systolic blood pressure less than 100 mmHg. Supplemental oxygen to maintain O2 saturation greater 92%. Trend troponin every 6 hours x3 sets Monitor intake and output every shift Weight patient daily Consider resuming home medications once they have been reconciled At time of admission home medications not been reconciled. Hydralazine 10 mg IV every 4 hours for systolic blood pressure greater than 160 mmHg GI prophylaxis, famotidine DVT prophylaxis, patient is on heparin drip as stated above Critical Care Time: I spent ___51___ minutes of critical care time with the patient. I reviewed lab work, change the patient's medication, and coordinated protocol in the event of tachycardia or desaturation. The patient status remains unchanged ATTESTATION BY PHYSICIAN I have seen and examined the patient. I reviewed the documentation, medical decision making, and treatment plan as noted by the mid-level provider above. I agree with the findings and plan of care. Doris An MD, [facility]YNA [facility] Aug 13, 2025 12:17
--- NOTE | 2025-08-13 14:04 | PN ---
[facility] PROGRESS NOTE Date Patient Seen: Aug 13, 2025 Time of Visit: 14:02 Supervising Physician: KRISH HENAO MD Primary Care Physician: FLAQUITO LEON IV Outpatient Specialists: [ ] Inpatient Consults: NANNETTE PROBLEM LIST: Acute ST-elevation myocardial infarction on admission, not candidate for emergent LHC as patient presented 48 hours after incident Acute pulmonary edema leading to acute hypoxemic respiratory failure Acute on chronic diastolic heart failure secondary to acute STEMI Status post LHC with evidence of triple-vessel coronary artery disease with stenting x3 Anemia of chronic disease Primary hypertension Obstructive coronary artery disease Atherosclerosis History of neuroendocrine cancer History of CABG History of cardiac stent INTERVAL HISTORY: Patient is afebrile, awake, remains on 3 L O2. Very weak, severely deconditioned and complains of chest pain Cough with mild congestion, no hemoptysis On BiPAP intermittently Poor appetite, no nausea or vomiting. Voiding REVIEW OF SYSTEMS: 12 point ROS reviewed with patient. Pertinent positives mentioned above. Otherwise negative. PHYSICAL EXAM: GENERAL: alert, weak, awake oriented x 3 HEENT: EOMI, Sclera non icteric, moist mucosa NECK: Supple, no JVD, trachea midline LUNGS: Clear breath sounds bilaterally. No wheezes HEART: Regular rate and rhythm. Normal S1 and S2, without murmurs ABD: Abdomen soft, nontender. Bowel sounds present EXT: No clubbing cyanosis or edema NEURO: Alert and oriented to person, follows commands Vital Signs (last 8hr) Date Time Temp Pulse Resp B/P (MAP) Pulse Ox O2 Delivery O2 Flow Rate FiO2 08/13/25 11:00 97.5 08/13/25 07:15 98.2 08/13/25 07:15 99 Nasal Cannula* 4 36 08/13/25 07:00 98.2 55 16 112/50 (70) 93 08/13/25 06:42 75 18 N/Cannula Oximizer Hi LPM 3.0 LABS: Hematology Labs: Test 08/13/25 04:51 08/12/25 03:14 Range/Units White Blood Count 10.5 # 4.8-10.8 K/uL Red Blood Count 2.90 L 4.50-6.20 MIL/uL Hemoglobin 8.9 L 14.0-18.0 g/dL Hematocrit 26.0 L 42-54 % Mean Corpuscular Volume 89.7 79-99 fL Mean Corpuscular Hemoglobin 30.7 27.0-33.0 pg Mean Corpuscular Hemoglobin Concent 34.2 32.0-36.0 g/dL Red Cell Distribution Width 14.6 11.0-15.5 % Platelet Count 189 130-400 K/uL Mean Platelet Volume 9.6 7.5-10.5 fL Immature Granulocyte % (Auto) 0.4 0-1 % Neutrophils (%) (Auto) 90.0 H 40.0-77.0 % Lymphocytes (%) (Auto) 3.3 L 21.0-51.0 % Monocytes (%) (Auto) 6.2 3.0-13.0 % Eosinophils (%) (Auto) 0.0 0.0-8.0 % Basophils (%) (Auto) 0.1 0.0-5.0 % Neutrophils # (Auto) 9.5 H 1.8-7.7 K/uL Lymphocytes # (Auto) 0.4 L 1.0-4.8 K/uL Monocytes # (Auto) 0.7 0.1-1.0 K/uL Eosinophils # (Auto) 0.00 0.00-0.70 K/uL Basophils # (Auto) 0.01 0.00-0.20 K/uL Absolute Immature Granulocyte (auto 0.04 0-1 K/uL Nucleated Red Blood Cells 0.0 0.0-0.19 % White Cell Morphology Comment See comments Chemistry Labs: Test 08/13/25 04:51 08/12/25 03:14 08/11/25 20:32 Range/Units Sodium Level 138 136-145 mmol/L Potassium Level 3.8 3.5-5.1 mmol/L Chloride Level 102 101-111 mmol/L Carbon Dioxide Level 28 21-32 mmol/L Blood Urea Nitrogen 47 H 7-18 mg/dL Creatinine 1.4 H 0.5-1.3 mg/dL Glomerular Filtration Rate Calc 51 >90 mL/min Random Glucose 155 H 70-105 mg/dL Total Calcium 7.8 L 8.5-10.1 mg/dL Magnesium Level 2.40 1.80-2.40 mg/dL Total Bilirubin 1.1 H 0.2-1.0 mg/dL Aspartate Amino Transf (AST/SGOT) 57 H 10-37 U/L Alanine Aminotransferase (ALT/SGPT) 15 12-78 U/L Alkaline Phosphatase 65 50-136 U/L Total Protein 6.0 6.0-8.3 g/dL Albumin 2.5 L 3.5-5.0 g/dL Phosphorus Level 3.8 2.5-4.9 mg/dL Direct Bilirubin 0.3 0.0-0.3 mg/dL Thyroid Stimulating Hormone (TSH) 0.35 #L 0.36-3.74 uIU/mL Troponin I High Sensitivity 75904 *H 4-75 ng/L Coagulation Labs: Test 08/13/25 04:51 Range/Units Activated Partial Thromboplast Time 46.7 H 26.3-35.5 SEC DIAGNOSTICS / RADIOLOGY RESULTS: None for today PLAN Repeat chest x-ray Continue aspirin Continue Plavix Continue beta-daryn Slowly wean off O2 BiPAP intermittently NEURO: Minimize central acting medications as possible. Fall Precautions. Well lighted room through the day and minimize interruptions through the night to prevent acute delirium. PULMONARY: Supplemental 02 as needed Titrate Fio2 to keep Spo2 > or = 90% DuoNebs and CPT as needed IS hourly while awake for pulmonary hygiene Out of bed to chair as tolerated VAP Bundle Vent/BIPAP Settings: [ ] Driving pressure: [ ] P Plat: [ ] Static C: [ ] Static R: [ ] P/F Ratio: [ ] CARDIOVASCULAR: Follow hemodynamics. Titrate vasopressor to keep MAP >65 or systolic blood pressure >95mmHg GI & NUTRITION: Continue nutritional support Aspirations precautions Prokinetic agents and laxatives as needed KIDNEYS & ELECTROLYTES: Strict monitoring of intake and output Daily weights Avoid nephrotoxic agents Monitor electrolytes and replace as needed Goal urine output of 30mL/hr or 0.5mL/kg/hr ENDOCRINE: Maintain blood glucose between 100-180 at all times. Insulin sliding scale for blood glucose management INFECTIOUS DISEASE: Trend temperature. Mariano-culture if febrile. Micro: [ Pending ] Antibiotics: [ ] HEMATOLOGY & COAGULATION: Monitor H&H. Keep Hgb > 7 Transfuse 1 unit of PRBC for Hgb < 7 Transfuse 1 pack of platelets of platelets < 20, 000 Watch for any signs and symptoms of bleeding SKIN: Pressure ulcer prevention per facility protocol Rehab: PT/OT Prophylaxis: GI: [ Protonix 40 mg ] DVT: [ Heparin drip ] Code Status: Full Resuscitation Disposition: [ continue ICU management ] Other: Total patient care time exceeds 35 minutes I personally scribed for KRISH HENAO MD ([email or web address]) on 08/13/25 at 14:04. Electronically submitted by Flaquito Bates ([facility]). KRISH HENAO MD Aug 13, 2025 14:04
--- NOTE | 2025-08-13 15:45 | NUR ---
Handoff report given to Jazmyn JEFFERS. Patient being transferred to [address] [facility] as downgrade status. Patient stable at this time. All questions answered.
[2025-08-14] VITALS (9 sets, daily range): BP systolic 91–106; BP diastolic 44–54; PULSE 52–76; RESP 16–19; TEMP 97.5–98; O2SAT 91–97
[2025-08-14 04:55] LABS: IMMATURE GRANULOCYTE ABSOLUTE 0.02 K/uL (0-1); NUCLEATED RED BLOOD CELLS 0.0 % (0.0-0.19); PLATELET COUNT (AUTO) 124 K/uL (130-400); RED BLOOD CELL COUNT(AUTO) 2.73 MIL/uL (4.50-6.20); RED CELL DISTRIBUTION WIDTH 14.8 % (11.0-15.5); WHITE BLOOD COUNT (AUTO) 6.5 K/uL (4.8-10.8)
[2025-08-14 05:24] LABS: ASPARTATE AMINOTRANSFERASE 45.0 U/L (10-37); CREATINE KINASE, TOTAL 159.0 U/L (21-232); CREATININE 1.2 mg/dL (0.5-1.3); GLOMERULAR FILTR. RATE CALC 61.0 mL/min (>90); GLUCOSE,RANDOM 130.0 mg/dL (70-105); PHOSPHORUS 3.0 mg/dL (2.5-4.9); SODIUM SERUM 140.0 mmol/L (136-145); TOTAL PROTEIN, SERUM 5.6 g/dL (6.0-8.3); UREA NITROGEN, BLOOD 46.0 mg/dL (7-18)
--- NOTE | 2025-08-14 08:51 | PN ---
[facility] PROGRESS NOTE Date Patient Seen: Aug 14, 2025 Time of Visit: 08:51 Supervising Physician: Christine Primary Care Physician: BEKA LEON IV Outpatient Specialists: [ ] Inpatient Consults: NANNETTE PROBLEM LIST: Acute ST-elevation myocardial infarction on admission, not candidate for emergent LHC as patient presented 48 hours after incident Acute pulmonary edema leading to acute hypoxemic respiratory failure Acute on chronic diastolic heart failure secondary to acute STEMI Status post LHC with evidence of triple-vessel coronary artery disease with stenting x3 Anemia of chronic disease Primary hypertension Obstructive coronary artery disease Atherosclerosis History of neuroendocrine cancer History of CABG History of cardiac stent INTERVAL HISTORY: Patient is seen at bedside today, he is currently on room air, denies any overnight events or acute distress at this time. White count is 6.5, hemoglobin is 8.5. [place] [address] today. BNP is 0. He remains on Plavix, Lasix 20 mg q.8 hours. Patient is tolerating his food at this time, appears to be improving, however patient remains at high-risk for cardiopulmonary decompensation. Prognosis remains guarded. REVIEW OF SYSTEMS: 12 point ROS reviewed with patient. Pertinent positives mentioned above. Otherwise negative. PHYSICAL EXAM: GENERAL: alert, weak, awake oriented x 3 HEENT: EOMI, Sclera non icteric, moist mucosa NECK: Supple, no JVD, trachea midline LUNGS: Clear breath sounds bilaterally. No wheezes HEART: Regular rate and rhythm. Normal S1 and S2, without murmurs ABD: Abdomen soft, nontender. Bowel sounds present EXT: No clubbing cyanosis or edema NEURO: Alert and oriented to person, follows commands Vital Signs (last 8hr) Date Time Temp Pulse Resp B/P (MAP) Pulse Ox O2 Delivery O2 Flow Rate FiO2 08/14/25 08:00 97.5 52 16 92/44 90 Room Air 21 08/14/25 06:09 97/50 08/14/25 04:21 76 19 N/Cannula Oximizer Hi LPM 3.0 32 08/14/25 04:20 100/48 08/14/25 04:01 97.9 52 18 91/51 92 Room Air LABS: Hematology Labs: Test 08/14/25 04:30 Range/Units White Blood Count 6.5 # 4.8-10.8 K/uL Red Blood Count 2.73 L 4.50-6.20 MIL/uL Hemoglobin 8.5 L 14.0-18.0 g/dL Hematocrit 25.2 L 42-54 % Mean Corpuscular Volume 92.3 79-99 fL Mean Corpuscular Hemoglobin 31.1 27.0-33.0 pg Mean Corpuscular Hemoglobin Concent 33.7 32.0-36.0 g/dL Red Cell Distribution Width 14.8 11.0-15.5 % Platelet Count 124 #L 130-400 K/uL Mean Platelet Volume 9.8 7.5-10.5 fL Immature Granulocyte % (Auto) 0.3 0-1 % Neutrophils (%) (Auto) 87.3 H 40.0-77.0 % Lymphocytes (%) (Auto) 5.1 L 21.0-51.0 % Monocytes (%) (Auto) 7.3 3.0-13.0 % Eosinophils (%) (Auto) 0.0 0.0-8.0 % Basophils (%) (Auto) 0.0 0.0-5.0 % Neutrophils # (Auto) 5.7 1.8-7.7 K/uL Lymphocytes # (Auto) 0.3 L 1.0-4.8 K/uL Monocytes # (Auto) 0.5 0.1-1.0 K/uL Eosinophils # (Auto) 0.00 0.00-0.70 K/uL Basophils # (Auto) 0.00 0.00-0.20 K/uL Absolute Immature Granulocyte (auto 0.02 0-1 K/uL Nucleated Red Blood Cells 0.0 0.0-0.19 % Chemistry Labs: Test 08/14/25 04:30 Range/Units Sodium Level 140 136-145 mmol/L Potassium Level 3.9 3.5-5.1 mmol/L Chloride Level 104 101-111 mmol/L Carbon Dioxide Level 28 21-32 mmol/L Blood Urea Nitrogen 46 H 7-18 mg/dL Creatinine 1.2 0.5-1.3 mg/dL Glomerular Filtration Rate Calc 61 >90 mL/min Random Glucose 130 H 70-105 mg/dL Lactic Acid Level 1.8 0.8-2.5 mmol/L Total Calcium 7.4 L 8.5-10.1 mg/dL Phosphorus Level 3.0 2.5-4.9 mg/dL Magnesium Level 2.30 1.80-2.40 mg/dL Total Bilirubin 0.5 # 0.2-1.0 mg/dL Aspartate Amino Transf (AST/SGOT) 45 H 10-37 U/L Alanine Aminotransferase (ALT/SGPT) 23 # 12-78 U/L Alkaline Phosphatase 58 50-136 U/L Total Creatine Kinase 159 # 21-232 U/L Troponin I High Sensitivity 25618.1 *H 4-75 ng/L B-Type Natriuretic Peptide 2070 H 0-100 pg/mL Total Protein 5.6 L 6.0-8.3 g/dL Albumin 2.3 L 3.5-5.0 g/dL Coagulation Labs: Test 08/14/25 04:30 Range/Units Activated Partial Thromboplast Time 36.4 H 26.3-35.5 SEC DIAGNOSTICS / RADIOLOGY RESULTS: [ ] PLAN NEURO: Minimize central acting medications as possible. Maintain fall precautions, adequate lighting during the day PULMONARY: Supplemental 02 as needed. Maintain aspiration precautions at all times CARDIOVASCULAR: Follow hemodynamics. Vital signs per facility protocol GI & NUTRITION: Continue with nutritional support. Continue stool softeners and laxatives as needed. KIDNEYS & ELECTROLYTES: Strict monitoring of intake, output and overall fluid balance. Avoid nephrotoxic medications to the extent possible. Medications to be dosed according to renal function. Monitor electrolytes and replace as needed ENDOCRINE: Maintain blood glucose between 100-180 at all times. Hypoglycemia protocol in place INFECTIOUS DISEASE: Trend temperature, WBC and procalcitonin level Follow cultures, deescalate antibiotics as soon as possible. Panculture if new onset fever ONCOLOGY/HEMATOLOGY/COAGULATION: Monitor for s/s of bleeding Monitor hemoglobin, coagulation studies as needed SKIN: Pressure ulcer prevention per facility protocol Specialty mattress ORTHO/REHAB: Continue PT/OT Prophylaxis: Continue GI and DVT prophylaxis Code Status: Full Resuscitation Disposition: TBD Other: Total patient care time is 36 minutes excluding all procedures. VENITA SANTANA Aug 14, 2025 08:51 KRISH HENAO MD Aug 17, 2025 20:39
[2025-08-14 09:08] LABS: % IRON SATURATION 28.0 % (30-44); IRON, SERUM 42.0 mcg/dL (65-175)
[2025-08-14] MEDS: EZETIMIBE 10 MG TAB PO SCH (09:40)
--- NOTE | 2025-08-14 11:43 | PN ---
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 He was admitted 08/11/2025 [place] [address]. He developed cardiogenic shock and was placed on IV norepinephrine and was transfused 1 unit of packed RBCs. Echocardiogram 08/11/2025 demonstrates an ejection fraction of 30-35% with stage II diastolic dysfunction, moderately dilated left atrium, trace to mild aortic valve regurgitation, trace mitral valve regurgitation and mild tricuspid valve regurgitation. He subsequently underwent left heart catheterization 08/13/2025 status post PTCA/PCI of the distal left main, ostial LAD and proximal to mid LAD with patent SVG to distal RCA, 100% stenosis in the SVG to OM1 and nonobstructive disease in the left circumflex. He is currently in sinus rhythm with heart rates in the 50s to 60s. His most recent blood pressure is 92/44. Chest x-ray shows bilateral pulmonary vascular congestion without pleural effusions. Lower extremity arterial Doppler shows multilevel atherosclerotic changes in bilateral lower limbs, biphasic flow pattern and multiple arterial segments in both limbs suggestive of reduced arterial compliance in early arterial insufficiency. White blood count 6.5, hemoglobin 8.5, hematocrit 25.2, platelets 124, creatinine 1.2, potassium 3.9, magnesium 2.3, BNP 2070, iron 42, TIBC 150, % saturation 28. Cumulative I and O balance of -2490 mL. He reports feeling good today but states that he felt euphoric yesterday after undergoing the coronary stenting procedure. He denies chest pain, shortness or breath, dizziness, weakness or discomfort to the left groin. He recently underwent liver ablation at [facility] and was planning to undergo radiation therapy prior to this admission. On exam, he is in no acute distress, regular rate and rhythm, lungs are clear to auscultation bilaterally, no lower extremity edema is noted, no hematoma to the left groin access site. Assessment: 1. ACS-STEMI. 2. Status post PTCA/PCI of the distal left main, ostial LAD and proximal to mid LAD 08/13/2025 with patent SVG to distal RCA and 100% stenosis in the SVG to OM1. 3. Ischemic cardiomyopathy. 4. 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 5. Left renal mass. Plan: Discussed with Dr. Herring. 1. He presented with a STEMI and underwent complex intervention to the distal left main, [id number] LAD 08/13/2025. His preop echocardiogram showed an ejection fraction of 30-35% which has declined from an ejection fraction of 50-55% in September 2024. 2. We will order repeat limited echocardiogram to assess LVEF post revascularization. If his ejection fraction remains less than 35%, he will likely require LifeVest on discharge. 3. Continue dual antiplatelet therapy with aspirin 81 mg once daily and clopidogrel 75 mg once daily for least one year. Continue Zetia 10 mg once daily. 4. Start midodrine 5 mg 3 times daily due to low blood pressure. Advance medical therapy for heart failure based on blood pressure response to midodrine. 5. Taper IV furosemide to 20 mg twice daily in the a.m.. 6. We will follow the patient. Vitals/Labs Vital Signs Date Time Temp Pulse Resp B/P (MAP) Pulse Ox O2 Delivery O2 Flow Rate FiO2 08/14/25 08:00 97.5 52 16 92/44 90 Room Air 21 08/14/25 04:21 3.0 Laboratory Tests 08/14/25 04:30 INOCENCIA ERNST PAC Aug 14, 2025 11:43
--- NOTE | 2025-08-14 14:13 | PN ---
[facility] PROGRESS NOTE Date of Service: Aug 14, 2025 Time of Service: 14:13 SUBJECTIVE: [08/11/25 Mr. Gonzalez is an 80-year-old male that was seen and examined today on 08/11/25. Patient is a good historian of personal health. Patient's , Sol Gonzalez is at bedside. Patient reports that he came to the emergency department with a chief complaint of chest pain. Onset was at midnight. Location is midsternal. Duration is on and off. Character is described as pressure. Patient reports that pain r adiates to the jaw, neck, and bilateral arms. There was no alleviating factors. There was no aggravating factors. Patient reports associated shortness and breath. STEMI alert was called in the emergency department and emergency room physician spoke to principal technical architect who de activated STEMI alert. Patient was started on a heparin drip. Chest x-ray is significant for pulmonary edema and congestion. Labs are significant for BUN of , creatinine 1.1, calcium 8.3, BNP 2020, CK 264, troponin 54, ABG showed pH of 7.42, pCO2 of 33, PO2 67.8 On room air, lactic acid is elevated at 2.45 2 08/12/25 patient was seen by nurse practitioner and physician during rounding in room 219 Chest x-ray showed cardiomegaly and pulmonary vascular congestion/pulmonary edema and also some sternal wires possibly s/p CABG changes. 2D echo showed EF of 30 to 35% stage II diastolic dysfunction. Patient is pending still arterial ultrasound reading was performed but no results posted yet. Patient was evaluated by the principal technical architect and that is pending left heart catheterization with Dr. Mayfield today 08/12/2025 in the afternoon. Patient was shaved for C and was little bit cath now some blood is oozing from the pubic area. Patient also has a history of cancer Dr. Vora poultry slaughterer was consulted. Patient remains in ICU for now. We will continue to monitor patient in the meantime. A.m. labs. 08/13/25 patient was seen by nurse practitioner and physician during rounding in room 219. Patient is s/p left heart catheterization on 08/16/2025 and three stents were placed by Dr. Mayfield. Ultrasound venous showed multilevel atherosclerotic changes in bilateral lower limb arteries. Biphasic flow pattern in multiple arterial segments in both lower limbs suggestive of reduced arterial compliance and early arterial insufficiency. We will continue to monitor patient in the ICU medical management. Patient is off heparin and norepinephrine. Patient is pending PT evaluation. CC 10.5. Creatinine has worsened today is 1.4 BUN 47. We will continue to monitor patient in the meantime. A.m. labs] 08/14/2025: Patient was seen and evaluated at bedside in room 230. He was awake, alert, and oriented 3. He reports a known history of a neuroendocrine tumor of the intestine diagnosed 2 years ago, with metastasis to the liver. He has been receiving chemotherapy for the past year and was scheduled to begin radiation therapy prior to undergoing a peripheral angiogram, which complicated his clinical course and led to his current hospitalization. Oncology has been consulted, and their evaluation and recommendations are pending. The patient denies shortness of breath, chest pain, or palpitations. However, he reports experiencing increased generalized weakness today compared to yesterday. This w ill be monitored closely. He has been hypotensive today. Cardiology initiated midodrine 5 mg TID to support blood pressure. An echocardiogram will be performed today. Per cardiology recommendations, if his LVEF is <35%, he will require discharge with a LifeVest. He has no additional complaints, and all questions were answered. REVIEW OF SYSTEMS CONSTITUTIONAL: Denies fevers, chills, or night sweats. No unintentional weight loss reported. NEUROLOGICAL: Denies headache, amaurosis fugax, motor weakness, sensory deficit, vertigo/spinning sensation, gait abnormalities, or tremors. ENT: No hearing loss, otalgia, otorrhea, rhinitis, rhinorrhea, hoarseness, or sore throat. CARDIOVASCULAR: Denies any exertional angina, dyspnea on exertion, orthopnea, paroxysmal nocturnal dyspnea, palpitations, life-threatening arrhythmias, claudication.s/p [facility] PULMONARY: Denies any shortness of breath, cough, phlegm/sputum, hemoptysis, pleuritic chest pain. SLEEP: Denies morning headaches, daytime somnolence or napping. Denies difficulty falling asleep, staying asleep, waking from sleep. Denies knowledge of snoring. GASTROINTESTINAL: Denies any type of dysphagia to either liquids or solids. Denies nausea, vomiting, pyrosis, early satiety, abdominal pain, diarrhea, constipation, or changes in stool consistency or caliber. Denies coffee-ground emesis, hematemesis, hematochezia, or melanotic stools. GENITOURINARY: Denies frequency, urgency, nocturia, hematuria or incontinence (Storage/Irritative symptoms.) Low urinary stream, straining to void, urinary intermittency or hesitancy, splitting of the voiding stream, terminal dribbling. ENDOCRINOLOGIC: Denies polyuria, polydipsia, polyphagia or heat/cold intolerances. HEMATOLOGIC: Denies thrombophilia/previous clots, or coagulopathy/bleeding disorders. ONCOLOGIC: Denies personal history of malignancy. DERMATOLOGIC: Denies rashes or pruritus. PSYCHIATRIC: Denies any suicidal or homicidal ideation. Denies hallucinations. PHYSICAL EXAM GENERAL APPEARANCE: The patient is awake, alert, and oriented, in no acute cardiopulmonary distress. NEUROLOGICAL: Cranial nerves II-XII grossly intact. Motor is 5/5 in bilateral upper and lower extremities proximal to distal. No sensory deficits. HEENT: Face is symmetric. Pupils are equal and reactive. Extraocular movements are intact. NECK: Supple. No JVD. No thyromegaly. No submental, submandibular, pre- /postauricular, occipital or supraclavicular lymphadenopathy. CHEST: Normal chest expansion. No Telemetry. LUNGS: Absence of any rales, rhonchi or any wheezing. CARDIOVASCULAR: Regular. S1 and S2 normal. No appreciable rubs, murmurs or gallops. ABDOMEN: Soft, nontender, and nondistended. There is no rebound, voluntary guarding, or rigidity. : Deferred. No Matthews. EXTREMITIES: Non-edematous and not cyanotic. No clubbing. Good capillary refill. SKIN: No skin breakdown. Vital Signs (last 8hr) Date Time Temp Pulse Resp B/P (MAP) Pulse Ox O2 Delivery O2 Flow Rate FiO2 08/14/25 12:00 97.9 57 16 105/53 91 Room Air 21 08/14/25 08:00 97.5 52 16 92/44 90 Room Air 21 LABS: Laboratory: Test 08/14/25 08:35 08/14/25 04:30 Range/Units Iron Level 42 #L 65-175 mcg/dL Total Iron Binding Capacity 150 L 250-450 mcg/dL Percent Iron Saturation 28.0 L 30-44 % Free Thyroxine (T4) Direct 0.89 0.76-1.46 ng/dL Free Triiodothyronine (T3) pg/mL 1.20 L 2.18-3.98 pg/mL White Blood Count 6.5 # 4.8-10.8 K/uL Red Blood Count 2.73 L 4.50-6.20 MIL/uL Hemoglobin 8.5 L 14.0-18.0 g/dL Hematocrit 25.2 L 42-54 % Mean Corpuscular Volume 92.3 79-99 fL Mean Corpuscular Hemoglobin 31.1 27.0-33.0 pg Mean Corpuscular Hemoglobin Concent 33.7 32.0-36.0 g/dL Red Cell Distribution Width 14.8 11.0-15.5 % Platelet Count 124 #L 130-400 K/uL Mean Platelet Volume 9.8 7.5-10.5 fL Immature Granulocyte % (Auto) 0.3 0-1 % Neutrophils (%) (Auto) 87.3 H 40.0-77.0 % Lymphocytes (%) (Auto) 5.1 L 21.0-51.0 % Monocytes (%) (Auto) 7.3 3.0-13.0 % Eosinophils (%) (Auto) 0.0 0.0-8.0 % Basophils (%) (Auto) 0.0 0.0-5.0 % Neutrophils # (Auto) 5.7 1.8-7.7 K/uL Lymphocytes # (Auto) 0.3 L 1.0-4.8 K/uL Monocytes # (Auto) 0.5 0.1-1.0 K/uL Eosinophils # (Auto) 0.00 0.00-0.70 K/uL Basophils # (Auto) 0.00 0.00-0.20 K/uL Absolute Immature Granulocyte (auto 0.02 0-1 K/uL Nucleated Red Blood Cells 0.0 0.0-0.19 % Activated Partial Thromboplast Time 36.4 H 26.3-35.5 SEC Sodium Level 140 136-145 mmol/L Potassium Level 3.9 3.5-5.1 mmol/L Chloride Level 104 101-111 mmol/L Carbon Dioxide Level 28 21-32 mmol/L Blood Urea Nitrogen 46 H 7-18 mg/dL Creatinine 1.2 0.5-1.3 mg/dL Glomerular Filtration Rate Calc 61 >90 mL/min Random Glucose 130 H 70-105 mg/dL Lactic Acid Level 1.8 0.8-2.5 mmol/L Total Calcium 7.4 L 8.5-10.1 mg/dL Phosphorus Level 3.0 2.5-4.9 mg/dL Magnesium Level 2.30 1.80-2.40 mg/dL Total Bilirubin 0.5 # 0.2-1.0 mg/dL Aspartate Amino Transf (AST/SGOT) 45 H 10-37 U/L Alanine Aminotransferase (ALT/SGPT) 23 # 12-78 U/L Alkaline Phosphatase 58 50-136 U/L Total Creatine Kinase 159 # 21-232 U/L Troponin I High Sensitivity 71610.1 *H 4-75 ng/L B-Type Natriuretic Peptide 2070 H 0-100 pg/mL Total Protein 5.6 L 6.0-8.3 g/dL Albumin 2.3 L 3.5-5.0 g/dL Current Medications Medications (Trade) Dose Ordered Sig/Chaka Route PRN Reason Start Time Stop Time Status Last Admin Dose Admin Acetaminophen (TYLenol 325MG TAB) 650 mg Q6H PRN PO TEMPERATURE GREATER THAN 101.5 08/11/25 03:00 09/10/25 02:59 08/12/25 12:33 650 MG Aspirin (Aspirin 81mg Ec Tab) 81 mg DAILY PO 08/11/25 09:00 09/10/25 08:59 08/14/25 09:40 81 MG Clopidogrel Bisulfate (plaVIX 75MG) 75 mg DAILY PO 08/11/25 09:00 09/10/25 08:59 08/14/25 09:39 75 MG Diphenhydramine HCl (BENAdryl INJ) 50 mg ONCALL IV 08/12/25 07:00 08/13/25 06:59 DC 08/13/25 07:00 50 MG EZETIMIBE (Zetia) 10 mg DAILY PO 08/14/25 09:00 09/13/25 08:59 08/14/25 09:40 10 MG Famotidine (Pepcid 20mg Vial) 20 mg ONCALL IV 08/12/25 07:00 08/13/25 06:59 DC 08/13/25 07:00 20 MG Famotidine (Pepcid 20mg Tab) 20 mg DAILY PO 08/11/25 09:00 08/11/25 08:34 DC 08/11/25 08:17 20 MG Furosemide (LASix 20MG VIAL) 20 mg BID IV 08/15/25 09:00 09/12/25 19:59 Furosemide (LASix 20MG VIAL) 20 mg Q8H IV 08/11/25 08:30 08/13/25 16:39 DC 08/13/25 11:31 20 MG Furosemide (LASix 20MG VIAL) 20 mg Q8H IV 08/13/25 20:00 08/14/25 20:00 08/14/25 12:22 20 MG Heparin Sodium (Porcine) (HEParin 5,000 UNIT VIAL) *calculation based on ACTUAL B... AD PRN IV HEPARIN PROTOCOL 08/11/25 02:00 08/13/25 10:35 DC Heparin Sodium/ Dextrose 250 ml @ 0 mls/hr Q6H IV 08/11/25 02:00 08/13/25 10:35 DC 08/12/25 09:48 0 MLS/HR Hydralazine HCl (APRESOLine 20MG INJ) 10 mg Q6H PRN IV For:SBP above 160;DBP above 90 08/11/25 03:00 08/11/25 04:10 DC Labetalol HCl (TRANdate 20MG SYG) 10 mg Q4H PRN IV SBP >160 08/11/25 04:30 09/10/25 04:29 Midodrine (PROAMatine 5 MG TABLET) 5 mg TID PO 08/14/25 14:00 09/13/25 13:59 08/14/25 12:22 5 MG Morphine Sulfate (morPHINE 2MG SYG) 2 mg Q4H PRN IVP SEVERE PAIN (7-10) 08/11/25 03:30 08/18/25 03:29 Nitroglycerin (Nitrostat) 0.4 mg AD PRN SL CHEST PAIN 08/11/25 01:30 08/11/25 03:13 DC Nitroglycerin (Nitrostat) 0.4 mg PROTOCOL PRN SL CHEST PAIN 08/11/25 03:00 09/10/25 02:59 Norepinephrine 250 ml @ 24.338 mls/ hr PROTOCOL PRN IV KEEP MAP > 65 08/12/25 03:30 09/11/25 03:29 08/12/25 03:42 24.338 MLS/HR Ondansetron HCl (zoFRAN 4MG INJ) 4 mg Q6H PRN IV NAUSEA/VOMITING 08/11/25 03:00 09/10/25 02:59 Pantoprazole Sodium (PROTonix 40MG TAB) 40 mg DAILY PO 08/11/25 09:00 09/10/25 08:59 08/14/25 09:40 40 MG Sodium Chloride 1,000 ml @ 100 mls/hr Q10H IV 08/13/25 11:00 08/13/25 13:59 DC 08/13/25 11:04 100 MLS/HR DIAGNOSTICS / RADIOLOGY: [address] [address] [place] [address] IMAGING REPORT Signed PATIENT: MARTHA GONZALEZ MR#: [id number] : 1945 SEX: M AGE: 80 LOCATION: 2CH ORDER 7 STATUS: ADM IN REPORT#: [id number] SERVICE [id number] REASON: patency of bilateral common femoral arteries ORDERING PHYSICIAN: DUANE MAYFIELD MD PROCEDURE: ART B LE - US ARTERIAL BILAT LOW EXT DUPL EXAM: US bilateral Upper Extremity Nonvascular Soft Tissue Ultrasound CLINICAL HISTORY: Patency of bilateral common femoral arteries TECHNIQUE: Real-time ultrasound scan of the bilateral upper extremity with image documentation. COMPARISON: None provided. FINDINGS: Right Lower Limb: Common Femoral Artery ([employer]): Triphasic flow pattern with peak systolic velocity of 89 cm/s. Superficial Femoral Artery (SFA) Proximal: Biphasic flow, peak systolic velocity 67 cm/s. Superficial Femoral Artery (SFA) Mid: Biphasic flow, peak systolic velocity 79 cm/s. Superficial Femoral Artery (SFA) Distal: Biphasic flow, peak systolic velocity 66 cm/s. Popliteal Artery (Proximal): Biphasic flow, peak systolic velocity 52 cm/s. Popliteal Artery (Distal): Biphasic flow, peak systolic velocity 48 cm/s. Posterior Tibial Artery ([employer]ANT): Biphasic flow, peak systolic velocity 61 cm/s. Anterior Tibial Artery (GEM): Biphasic flow, peak systolic velocity 40 cm/s. Dorsalis Pedis Artery (DPA): Biphasic flow, peak systolic velocity 28 cm/s. Left Lower Limb: Common Femoral Artery ([employer] MAN): Triphasic flow pattern with peak systolic velocity 134 cm/s. Superficial Femoral Artery (Proximal): Biphasic flow, peak systolic velocity 67 cm/s. Superficial Femoral Artery (Distal): Biphasic flow, peak systolic velocity 60 cm/s. Popliteal Artery (Proximal): Biphasic flow, peak systolic velocity 48 cm/s. Popliteal Artery: Biphasic flow, peak systolic velocity 60 cm/s. Posterior Tibial Artery ([employer]SULTANT): Biphasic flow, peak systolic velocity 67 cm/s. Anterior Tibial Artery (GEM): Biphasic flow, peak systolic velocity 40 cm/s. Dorsalis Pedis Artery (DPA): Biphasic flow, peak systolic velocity 38 cm/s. Evidence of multilevel atherosclerotic changes with diffuse thinning of arterial west throughout the left lower limb arterial system. IMPRESSION: Multilevel atherosclerotic changes in bilateral lower limb arteries. Biphasic flow pattern in multiple arterial segments in both lower limbs, suggestive of reduced arterial compliance and early arterial insufficiency. /[place] DICTATED BY: RAMAN RENTERIA Jr., MD DATE: 08/12/251114 ELECTRONICALLY SIGNED BY: RAMAN RENTERIA Jr., MD DATE: 08/12/251114 ASSESSMENT: [Acute ST-elevation myocardial infarction on admission, not candidate for emergent LHC as patient presented 48 hours after incident Acute pulmonary edema leading to acute hypoxemic respiratory failure Acute on chronic diastolic heart failure secondary to acute STEMI Status post LHC with evidence of triple-vessel coronary artery disease with stenting x3 Anemia of chronic disease Primary hypertension Obstructive coronary artery disease Atherosclerosis History of neuroendocrine cancer History of CABG History of cardiac stent History of liver mass/cancer s/p treatment by [facility] ] PLAN: Acute Coronary Syndrome STEMI, s/p Complex PCI (08/13) s/p PTCA/PCI of distal left main, ostial LAD, proximalmid LAD 3 stents. Pre-PCI LVEF 3035% (prior EF 5055% in Sep 2024) indicating ischemic cardiomyopathy. Troponins previously elevated (>>10,000). No recurrent chest pain today. Access site clean; no groin hematoma. On 3 L O2; intermittent BiPAP; pulmonary edema on CXR. Continue DAPT: Aspirin 81 mg daily, Clopidogrel 75 mg daily, continue 12 months Continue Zetia 10 mg daily Nitroglycerin SL PRN chest pain; hold SBP <100 Repeat limited echocardiogram to reassess EF post-revascularization If EF <35%, LifeVest at discharge Telemetry monitoring Daily weights, strict I/O Monitor groin access site Acute Pulmonary Edema with Acute Hypoxemic Respiratory Failure CXR: cardiomegaly, pulmonary vascular congestion, pulmonary edema Using intermittent BiPAP Still weak and deconditioned Continue IV furosemide, taper to 20 mg IV BID Wean BiPAP as tolerated Monitor electrolytes with serial labs. Maintain negative or net-even fluid balance Acute on Chronic Systolic + Diastolic Heart Failure (EF 3035%, Stage II DD) Post-ischemic drop in EF Blood pressure soft; cannot tolerate full GDMT yet Start midodrine 5 mg TID for BP support Advance GDMT (OSCAR-I/ARB/ARNI, b-daryn, MRA, SGLT2-i) as tolerated by BP after midodrine response Hold outpatient antihypertensives until BP improves Continue diuresis as above Peripheral Arterial Disease Arterial ultrasound: multilevel atherosclerotic disease, biphasic flow; early arterial insufficiency Lower extremities without acute ischemia on exam Patient weaker today but no focal limb pain Continue antiplatelet therapy PT/OT when cleared Follow final arterial duplex interpretation once posted Consider outpatient vascular referral after stabilization Normocytic Anemia / Anemia of Chronic Disease Chronic disease from cancer + recent procedures Hgb trending (8.5) Transfuse only if Hgb <7 or symptomatic Oncology involved (Dr. Vora) Hypotension (Now Improving) Initially required norepinephrine ; now OFF pressors Currently low-normal BP Cardiology started midodrine 5 mg TID Continue midodrine Avoid aggressive antihypertensives Monitor BP q4h Neuroendocrine Tumor with Liver Metastases s/p recent liver ablation at [facility] Was planning radiation before this admission Oncology consulted; pending recommendations Follow hematology/oncology recommendations Continue supportive care Ensure follow-up with [facility] post-discharge DVT prophylaxis with SCDs. GI prophylaxis with Protonix 40 mg p.o. daily. ATTESTATION BY PHYSICIAN I have seen and examined the patient. I reviewed the documentation, medical decision making, and treatment plan as noted by the resident physician above. I agree with the findings and plan of care. BURAK GAR MD, HEMA MD Aug 14, 2025 14:13
--- NOTE | 2025-08-14 20:29 | HMCIMG ---
EXAM: CR Chest, 1 View. CLINICAL HISTORY: chf COMPARISON: 08/12/2025 FINDINGS: LUNGS: The lungs show persistent airspace and interstitial opacities in the bilateral perihilar region consistent with pulmonary edema. PLEURAL SPACES: No evidence of pleural effusion or pneumothorax. MEDIASTINUM: Cardiac size is stable. Mild pulmonary vascular congestion. Median sternotomy sutures. BONES: No aggressive appearing osseous lesion seen. IMPRESSION: 1. Persistent bilateral perihilar airspace and interstitial opacities, consistent with pulmonary edema. 2. Mild pulmonary vascular congestion. No significant interval changes since the prior. /[place]
[2025-08-15] VITALS (9 sets, daily range): BP systolic 95–116; BP diastolic 47–61; PULSE 49–72; RESP 16–18; TEMP 97.2–98; O2SAT 93–98
--- NOTE | 2025-08-15 01:45 | HMCSR ---
APPROVED REPORT EXAM: LIMITED Two-dimensional and M-mode echocardiogram. Study Details: Previous echo 08/11/25 INDICATION ICD: Ischemic cardiomyopathy I25.5 2D Dimensions RVDd 4.6 cm LVED Vol(simp.) 175.3 mL LVES Vol(simp.) 107.2 mL LVEF(%, simp.) 39 % LA ESV INDEX (BP) 50.28 mL/m2 Deformation Strain Apical 4 -7.1 % Apical 2 -7.8 % Apical 3 -8.5 % Global Strain -7.8 % Left Ventricle The left ventricle is dilated. The mid/apical anterior, apical inferoseptal, apical inferior west and apex are hypokinetic. The other west are grossly normal in function. Mild eccentric left ventricular hypertrophy. Left ventricle systolic function is moderate to severely depressed, estimated LVEF 35 to 40%. Indeterminate diastolic dysfunction. Right Ventricle The right ventricle is mildly dilated. The right ventricular systolic function is mildly depressed. Atria The left atrium is severely dilated, 50 mL/m. The right atrium is dilated. Aortic Valve Aortic valve is trileaflet. Mitral Valve The mitral valve is normal in structure. The leaflets are mildly thickened and calcified. Tricuspid Valve The tricuspid valve is normal in structure. Great Vessels The aortic root is normal in size. Pericardium No pericardial effusion. Conclusion The left ventricle is dilated. Mild eccentric left ventricular hypertrophy. The mid/apical anterior, apical inferoseptal, apical inferior west and apex are hypokinetic. The other west are grossly normal in function. Left ventricle systolic function is moderate to severely depressed, estimated LVEF 35 to 40%. Indeterminate diastolic dysfunction. The right ventricular systolic function is mildly depressed. The gradients across the valves were not assessed. Right-sided pressures were not assessed. No pericardial effusion.
[2025-08-15 04:06] LABS: IMMATURE GRANULOCYTE ABSOLUTE 0.02 K/uL (0-1); NUCLEATED RED BLOOD CELLS 0.0 % (0.0-0.19); PLATELET COUNT (AUTO) 124 K/uL (130-400); RED BLOOD CELL COUNT(AUTO) 2.76 MIL/uL (4.50-6.20); RED CELL DISTRIBUTION WIDTH 14.7 % (11.0-15.5); WHITE BLOOD COUNT (AUTO) 4.9 K/uL (4.8-10.8)
[2025-08-15 04:25] LABS: ASPARTATE AMINOTRANSFERASE 39.0 U/L (10-37); CREATININE 1.1 mg/dL (0.5-1.3); GLOMERULAR FILTR. RATE CALC 68.0 mL/min (>90); GLUCOSE,RANDOM 122.0 mg/dL (70-105); SODIUM SERUM 141.0 mmol/L (136-145); TOTAL PROTEIN, SERUM 5.8 g/dL (6.0-8.3); UREA NITROGEN, BLOOD 37.0 mg/dL (7-18)
--- NOTE | 2025-08-15 09:05 | PN ---
[facility] PROGRESS NOTE Date Patient Seen: Aug 15, 2025 Time of Visit: 09:05 Supervising Physician: Dr. King Primary Care Physician: BEKA LEON IV Outpatient Specialists: [ ] Inpatient Consults: NANNETTE PROBLEM LIST: Acute ST-elevation myocardial infarction on admission, not candidate for emergent LHC as patient presented 48 hours after incident Acute pulmonary edema leading to acute hypoxemic respiratory failure Acute on chronic diastolic heart failure secondary to acute STEMI Status post LHC with evidence of triple-vessel coronary artery disease with stenting x3 Anemia of chronic disease Primary hypertension Obstructive coronary artery disease Atherosclerosis History of neuroendocrine cancer History of CABG History of cardiac stent INTERVAL HISTORY: Patient is seen at bedside, AAO x3, on 3 L nasal cannula. White count is 4.9 with a hemoglobin of 8.4. Patient continues on Lasix 20 mg b.i.d. as well as Plavix 75 mg daily. Patient's echocardiogram has been returned at 30% ejection fraction, per previous notes by Cardiology LifeVest is indicated if EF is less than 35%, at this time primary/cardiology is proceeding with consent for life vest. We will place orders for 6 minute walk prior to discharge to assess the patient's home O2 status and indication for home oxygen. Patient may also benefit from pravastatin, we will discuss with the patient tomorrow regarding his allergic reaction to atorvastatin and assess for risks benefit. Plan Pending 6 minute walk prior to discharge for home O2 status evaluation Pending LifeVest Follow cardiology recommendations Continue Plavix REVIEW OF SYSTEMS: 12 point ROS reviewed with patient. Pertinent positives mentioned above. Otherwise negative. PHYSICAL EXAM: GENERAL: alert, weak, awake oriented x 3 HEENT: EOMI, Sclera non icteric, moist mucosa NECK: Supple, no JVD, trachea midline LUNGS: Clear breath sounds bilaterally. No wheezes HEART: Regular rate and rhythm. Normal S1 and S2, without murmurs ABD: Abdomen soft, nontender. Bowel sounds present EXT: No clubbing cyanosis or edema NEURO: Alert and oriented to person, follows commands Vital Signs (last 8hr) Date Time Temp Pulse Resp B/P (MAP) Pulse Ox O2 Delivery O2 Flow Rate FiO2 08/15/25 08:00 97.9 51 16 95/47 93 Nasal Cannula 2.0 24 08/15/25 07:27 51 18 N/Cannula Oximizer Hi LPM 3.0 32 08/15/25 03:55 97.5 51 18 102/50 97 Nasal Cannula 2.0 LABS: Hematology Labs: Test 08/15/25 03:40 Range/Units White Blood Count 4.9 4.8-10.8 K/uL Red Blood Count 2.76 L 4.50-6.20 MIL/uL Hemoglobin 8.4 L 14.0-18.0 g/dL Hematocrit 25.5 L 42-54 % Mean Corpuscular Volume 92.4 79-99 fL Mean Corpuscular Hemoglobin 30.4 27.0-33.0 pg Mean Corpuscular Hemoglobin Concent 32.9 32.0-36.0 g/dL Red Cell Distribution Width 14.7 11.0-15.5 % Platelet Count 124 L 130-400 K/uL Mean Platelet Volume 10.1 7.5-10.5 fL Immature Granulocyte % (Auto) 0.4 0-1 % Neutrophils (%) (Auto) 82.2 H 40.0-77.0 % Lymphocytes (%) (Auto) 8.7 L 21.0-51.0 % Monocytes (%) (Auto) 8.7 3.0-13.0 % Eosinophils (%) (Auto) 0.0 0.0-8.0 % Basophils (%) (Auto) 0.0 0.0-5.0 % Neutrophils # (Auto) 4.1 1.8-7.7 K/uL Lymphocytes # (Auto) 0.4 L 1.0-4.8 K/uL Monocytes # (Auto) 0.4 0.1-1.0 K/uL Eosinophils # (Auto) 0.00 0.00-0.70 K/uL Basophils # (Auto) 0.00 0.00-0.20 K/uL Absolute Immature Granulocyte (auto 0.02 0-1 K/uL Nucleated Red Blood Cells 0.0 0.0-0.19 % Chemistry Labs: Test 08/15/25 03:40 08/14/25 08:35 08/14/25 04:30 Range/Units Sodium Level 141 136-145 mmol/L Potassium Level 3.5 3.5-5.1 mmol/L Chloride Level 104 101-111 mmol/L Carbon Dioxide Level 31 21-32 mmol/L Blood Urea Nitrogen 37 H 7-18 mg/dL Creatinine 1.1 0.5-1.3 mg/dL Glomerular Filtration Rate Calc 68 >90 mL/min Random Glucose 122 H 70-105 mg/dL Total Calcium 7.6 L 8.5-10.1 mg/dL Total Bilirubin 0.7 # 0.2-1.0 mg/dL Aspartate Amino Transf (AST/SGOT) 39 H 10-37 U/L Alanine Aminotransferase (ALT/SGPT) 20 12-78 U/L Alkaline Phosphatase 59 50-136 U/L B-Type Natriuretic Peptide 2240 H 0-100 pg/mL Total Protein 5.8 L 6.0-8.3 g/dL Albumin 2.4 L 3.5-5.0 g/dL Iron Level 42 #L 65-175 mcg/dL Total Iron Binding Capacity 150 L 250-450 mcg/dL Percent Iron Saturation 28.0 L 30-44 % Tumor Marker Alpha Fetoprotein 44.7 H 0.0-8.4 ng/mL Free Thyroxine (T4) Direct 0.89 0.76-1.46 ng/dL Free Triiodothyronine (T3) pg/mL 1.20 L 2.18-3.98 pg/mL Lactic Acid Level 1.8 0.8-2.5 mmol/L Phosphorus Level 3.0 2.5-4.9 mg/dL Magnesium Level 2.30 1.80-2.40 mg/dL Total Creatine Kinase 159 # 21-232 U/L Troponin I High Sensitivity 09621.1 *H 4-75 ng/L Coagulation Labs: Test 08/14/25 04:30 Range/Units Activated Partial Thromboplast Time 36.4 H 26.3-35.5 SEC DIAGNOSTICS / RADIOLOGY RESULTS: [ ] PLAN NEURO: Minimize central acting medications as possible. Maintain fall precautions, adequate lighting during the day PULMONARY: Supplemental 02 as needed. Maintain aspiration precautions at all times CARDIOVASCULAR: Follow hemodynamics. Vital signs per facility protocol GI & NUTRITION: Continue with nutritional support. Continue stool softeners and laxatives as needed. KIDNEYS & ELECTROLYTES: Strict monitoring of intake, output and overall fluid balance. Avoid nephrotoxic medications to the extent possible. Medications to be dosed according to renal function. Monitor electrolytes and replace as needed ENDOCRINE: Maintain blood glucose between 100-180 at all times. Hypoglycemia protocol in place INFECTIOUS DISEASE: Trend temperature, WBC and procalcitonin level Follow cultures, deescalate antibiotics as soon as possible. Panculture if new onset fever ONCOLOGY/HEMATOLOGY/COAGULATION: Monitor for s/s of bleeding Monitor hemoglobin, coagulation studies as needed SKIN: Pressure ulcer prevention per facility protocol Specialty mattress ORTHO/REHAB: Continue PT/OT Prophylaxis: Continue GI and DVT prophylaxis Code Status: Full Resuscitation Disposition: TBD Other: Total patient care time is 36 minutes excluding all procedures. VENITA SANTANA PAC Aug 15, 2025 09:05
--- NOTE | 2025-08-15 11:41 | PN ---
[facility] CARDIOLOGY PROGRESS NOTE Date Patient Seen: Aug 15, 2025 Time of Visit: 11:31 Interval History: [ No acute events overnight. The patient had assessed at his bedside, currently denying any cardiac symptoms or anginal equivalents, supplemental O2 by nasal cannula at 2-3 L/min. Review of telemetry sinus bradycardia with a heart rate 57 beats per minute. We discussed with the patient placement of life vest, patient verbalized understanding and consents.] Physical Examination: GENERAL: [No acute distress.] HEAD: [Normal with no signs of head trauma.] EYES: [PERRLA, EOMI, conjunctiva and sclera normal.] ENT: [Hearing grossly intact, normal oropharynx.] NECK: [Supple without JVD. There is no tenderness, lymphadenopathy, or masses. No thyromegaly. Normal carotid upstrokes without bruits.] LUNGS: [Decreased breath sounds in the bases bilaterally] HEART: [Bradycardic rate and rhythm. Normal S1 and S2 without mumurs, gallop or rub.] VASC: [Peripheral pulses +2 bilaterally.] ABD: [Bowel sounds normal, soft, nontender, no masses, no organomegaly. No audible bruits.] : [Not examined] LYMPH: [No lymphadenopathy noted.] EXT: [No clubbing, cyanosis or edema.] SKIN: [No rashes or lesions noted.] NEURO: [Awake, alert, and oriented x3. No focal sensory or strength deficits noted.] Laboratory: [ ] Hematology Labs: Test 08/15/25 03:40 Range/Units White Blood Count 4.9 4.8-10.8 K/uL Red Blood Count 2.76 L 4.50-6.20 MIL/uL Hemoglobin 8.4 L 14.0-18.0 g/dL Hematocrit 25.5 L 42-54 % Mean Corpuscular Volume 92.4 79-99 fL Mean Corpuscular Hemoglobin 30.4 27.0-33.0 pg Mean Corpuscular Hemoglobin Concent 32.9 32.0-36.0 g/dL Red Cell Distribution Width 14.7 11.0-15.5 % Platelet Count 124 L 130-400 K/uL Mean Platelet Volume 10.1 7.5-10.5 fL Immature Granulocyte % (Auto) 0.4 0-1 % Neutrophils (%) (Auto) 82.2 H 40.0-77.0 % Lymphocytes (%) (Auto) 8.7 L 21.0-51.0 % Monocytes (%) (Auto) 8.7 3.0-13.0 % Eosinophils (%) (Auto) 0.0 0.0-8.0 % Basophils (%) (Auto) 0.0 0.0-5.0 % Neutrophils # (Auto) 4.1 1.8-7.7 K/uL Lymphocytes # (Auto) 0.4 L 1.0-4.8 K/uL Monocytes # (Auto) 0.4 0.1-1.0 K/uL Eosinophils # (Auto) 0.00 0.00-0.70 K/uL Basophils # (Auto) 0.00 0.00-0.20 K/uL Absolute Immature Granulocyte (auto 0.02 0-1 K/uL Nucleated Red Blood Cells 0.0 0.0-0.19 % Chemistry Labs: Test 08/15/25 03:40 08/14/25 08:35 08/14/25 04:30 Range/Units Sodium Level 141 136-145 mmol/L Potassium Level 3.5 3.5-5.1 mmol/L Chloride Level 104 101-111 mmol/L Carbon Dioxide Level 31 21-32 mmol/L Blood Urea Nitrogen 37 H 7-18 mg/dL Creatinine 1.1 0.5-1.3 mg/dL Glomerular Filtration Rate Calc 68 >90 mL/min Random Glucose 122 H 70-105 mg/dL Total Calcium 7.6 L 8.5-10.1 mg/dL Total Bilirubin 0.7 # 0.2-1.0 mg/dL Aspartate Amino Transf (AST/SGOT) 39 H 10-37 U/L Alanine Aminotransferase (ALT/SGPT) 20 12-78 U/L Alkaline Phosphatase 59 50-136 U/L B-Type Natriuretic Peptide 2240 H 0-100 pg/mL Total Protein 5.8 L 6.0-8.3 g/dL Albumin 2.4 L 3.5-5.0 g/dL Iron Level 42 #L 65-175 mcg/dL Total Iron Binding Capacity 150 L 250-450 mcg/dL Percent Iron Saturation 28.0 L 30-44 % Tumor Marker Alpha Fetoprotein 44.7 H 0.0-8.4 ng/mL Free Thyroxine (T4) Direct 0.89 0.76-1.46 ng/dL Free Triiodothyronine (T3) pg/mL 1.20 L 2.18-3.98 pg/mL Lactic Acid Level 1.8 0.8-2.5 mmol/L Phosphorus Level 3.0 2.5-4.9 mg/dL Magnesium Level 2.30 1.80-2.40 mg/dL Total Creatine Kinase 159 # 21-232 U/L Troponin I High Sensitivity 01768.1 *H 4-75 ng/L Coagulation Labs: Test 08/14/25 04:30 Range/Units Activated Partial Thromboplast Time 36.4 H 26.3-35.5 SEC Diagnostics / Radiology: [Copy/Paste Echos/Imaging Report here] Impression and Plan: [1. ACS-STEMI. 2. Status post PTCA/PCI of the distal left main, ostial LAD and proximal to mid LAD 08/13/2025 with patent SVG to distal RCA and 100% stenosis in the SVG to OM1. 3. Ischemic cardiomyopathy. 4. 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 5. Left renal mass. ] # ACS-STEMI Patient's blood pressure continues to be soft, we will continue midodrine5 mg every 8 hours He presented with a STEMI status post PTCA/PCI of the distal left main, ostial LAD and proximal to mid LAD with patent SVG to distal RCA, 100% stenosis in the SVG to OM1 and nonobstructive disease in the left circumflex. 08/13/2025. Currently the patient denies any chest pain, palpitations, dyspnea or any other anginal equivalents. Please keep on telemetry, monitor/replace electrolytes as needed Patient will require DAPT for 12 months (izftqrt80 mg daily, Lhbual47 mg daily), atorvastatin 40 mg daily #HFrEF ICM-LVEF 35-40%-NYHA III Compensated and euvolemic on exam Blood pressure is continues to be soft, continue midodrine 5 mg every 8 hours His preop echocardiogram showed an ejection fraction of 30-35% which has declined from an ejection fraction of 50-55% in September 2024 Repeat 2D echocardiogram revealed LVEF 35-40% dilated left ventricle, hypokinetic mid/apical anterior, apical inferoseptal, apical inferior west and apex. (08/14/2025) Strict I's and O's and daily weights. Continue Lasix 20 mg IV every 12 hours Unable to optimize GDM T due to current use of midodrine. We had an extensive discussion with the patient regarding placement of life vest, patient verbalized understanding combined consents. We will recommend aggressive PT OT Thank you for this consult cardiology will continue to follow along Ángel gutierrez MD ATTESTATION BY PHYSICIAN I have seen and examined the patient, reviewed the above documentation, participated in medical decision making, made necessary modifications, and agree with the treatment plan as documented by my mid-level provider above. MD CAMILLA Marques JAMES R MD Aug 15, 2025 11:41
--- NOTE | 2025-08-15 14:41 | PN ---
[facility] PROGRESS NOTE Date of Service: Aug 15, 2025 Time of Service: 14:41 SUBJECTIVE: [08/11/25 Mr. Gonzalez is an 80-year-old male that was seen and examined today on 08/11/25. Patient is a good historian of personal health. Patient's , Sol Gonzalez is at bedside. Patient reports that he came to the emergency department with a chief complaint of chest pain. Onset was at midnight. Location is midsternal. Duration is on and off. Character is described as pressure. Patient reports that pain r adiates to the jaw, neck, and bilateral arms. There was no alleviating factors. There was no aggravating factors. Patient reports associated shortness and breath. STEMI alert was called in the emergency department and emergency room physician spoke to continuous loft operator who de activated STEMI alert. Patient was started on a heparin drip. Chest x-ray is significant for pulmonary edema and congestion. Labs are significant for BUN of , creatinine 1.1, calcium 8.3, BNP 2020, CK 264, troponin 54, ABG showed pH of 7.42, pCO2 of 33, PO2 67.8 On room air, lactic acid is elevated at 2.45 2 08/12/25 patient was seen by nurse practitioner and physician during rounding in room 219 Chest x-ray showed cardiomegaly and pulmonary vascular congestion/pulmonary edema and also some sternal wires possibly s/p CABG changes. 2D echo showed EF of 30 to 35% stage II diastolic dysfunction. Patient is pending still arterial ultrasound reading was performed but no results posted yet. Patient was evaluated by the continuous loft operator and that is pending left heart catheterization with Dr. Mayfield today 08/12/2025 in the afternoon. Patient was shaved for C and was little bit cath now some blood is oozing from the pubic area. Patient also has a history of cancer Dr. Vora photostat operator helper was consulted. Patient remains in ICU for now. We will continue to monitor patient in the meantime. A.m. labs. 08/13/25 patient was seen by nurse practitioner and physician during rounding in room 219. Patient is s/p left heart catheterization on 08/16/2025 and three stents were placed by Dr. Mayfield. Ultrasound venous showed multilevel atherosclerotic changes in bilateral lower limb arteries. Biphasic flow pattern in multiple arterial segments in both lower limbs suggestive of reduced arterial compliance and early arterial insufficiency. We will continue to monitor patient in the ICU medical management. Patient is off heparin and norepinephrine. Patient is pending PT evaluation. CC 10.5. Creatinine has worsened today is 1.4 BUN 47. We will continue to monitor patient in the meantime. A.m. labs] 08/14/2025: Patient was seen and evaluated at bedside in room 230. He was awake, alert, and oriented 3. He reports a known history of a neuroendocrine tumor of the intestine diagnosed 2 years ago, with metastasis to the liver. He has been receiving chemotherapy for the past year and was scheduled to begin radiation therapy prior to undergoing a peripheral angiogram, which complicated his clinical course and led to his current hospitalization. Oncology has been consulted, and their evaluation and recommendations are pending. The patient denies shortness of breath, chest pain, or palpitations. However, he reports experiencing increased generalized weakness today compared to yesterday. This w ill be monitored closely. He has been hypotensive today. Cardiology initiated midodrine 5 mg TID to support blood pressure. An echocardiogram will be performed today. Per cardiology recommendations, if his LVEF is <35%, he will require discharge with a LifeVest. He has no additional complaints, and all questions were answered. 08/15/2025: Patient was seen and evaluated bedside in room 230. He was awake, alert, and oriented x3, sitting comfortably in his chair during my visit. He reports that he is doing well today and denies and experiencing the fatigue he had yesterday. He denies any chest pain, shortness of breath, palpitations, dizziness, nausea, or vomiting. Cardiology performed an echocardiogram, which showed an ejection fraction of 35-40%. They have recommended placement of a LifeVest upon discharge. Regarding his cancer history, the patient stated that [facility] has placed his treatment on hold until his cardiac condition stabilizes. He has an upcoming appointment with Dr. Vora on August 25. As there is no acute oncologic intervention required during this hospitalization, a shared decision was made to cancel the inpatient oncology consult, with plans for outpatient follow up. The patient verbalized the understanding and agreement with this plan. Physical therapy is following, and the patient is ambulating well. He reports normal bowel movements and is tolera ting his diet without nausea or vomiting. He remains hemodynamically stable, with a blood pressure around 110 systolic, heart rate averaging 55 beats per minute. He is afebrile and maintaining oxygen saturation of 90% on 2 L nasal cannula. He has no additional complaints today. REVIEW OF SYSTEMS CONSTITUTIONAL: Denies fevers, chills, or night sweats. No unintentional weight loss reported. NEUROLOGICAL: Denies headache, amaurosis fugax, motor weakness, sensory deficit, vertigo/spinning sensation, gait abnormalities, or tremors. ENT: No hearing loss, otalgia, otorrhea, rhinitis, rhinorrhea, hoarseness, or sore throat. CARDIOVASCULAR: Denies any exertional angina, dyspnea on exertion, orthopnea, paroxysmal nocturnal dyspnea, palpitations, life-threatening arrhythmias, claudication.s/p LHC PULMONARY: Denies any shortness of breath, cough, phlegm/sputum, hemoptysis, pleuritic chest pain. SLEEP: Denies morning headaches, daytime somnolence or napping. Denies difficulty falling asleep, staying asleep, waking from sleep. Denies knowledge of snoring. GASTROINTESTINAL: Denies any type of dysphagia to either liquids or solids. Denies nausea, vomiting, pyrosis, early satiety, abdominal pain, diarrhea, constipation, or changes in stool consistency or caliber. Denies coffee-ground emesis, hematemesis, hematochezia, or melanotic stools. GENITOURINARY: Denies frequency, urgency, nocturia, hematuria or incontinence (Storage/Irritative symptoms.) Low urinary stream, straining to void, urinary intermittency or hesitancy, splitting of the voiding stream, terminal dribbling. ENDOCRINOLOGIC: Denies polyuria, polydipsia, polyphagia or heat/cold intolerances. HEMATOLOGIC: Denies thrombophilia/previous clots, or coagulopathy/bleeding dis orders. ONCOLOGIC: Denies personal history of malignancy. DERMATOLOGIC: Denies rashes or pruritus. PSYCHIATRIC: Denies any suicidal or homicidal ideation. Denies hallucinations. PHYSICAL EXAM GENERAL APPEARANCE: The patient is awake, alert, and oriented, in no acute cardiopulmonary distress. NEUROLOGICAL: Cranial nerves II-XII grossly intact. Motor is 5/5 in bilateral upper and lower extremities proximal to distal. No sensory deficits. HEENT: Face is symmetric. Pupils are equal and reactive. Extraocular movements are intact. NECK: Supple. No JVD. No thyromegaly. No submental, submandibular, pre- /postauricular, occipital or supraclavicular lymphadenopathy. CHEST: Normal chest expansion. No Telemetry. LUNGS: Absence of any rales, rhonchi or any wheezing. CARDIOVASCULAR: Regular. S1 and S2 normal. No appreciable rubs, murmurs or gallops. ABDOMEN: Soft, nontender, and nondistended. There is no rebound, voluntary guarding, or rigidity. : Deferred. No Matthews. EXTREMITIES: Non-edematous and not cyanotic. No clubbing. Good capillary refill. SKIN: No skin breakdown. Vital Signs (last 8hr) Date Time Temp Pulse Resp B/P (MAP) Pulse Ox O2 Delivery O2 Flow Rate FiO2 08/15/25 12:00 98.1 53 16 116/61 98 Room Air 21 08/15/25 11:30 68 18 N/Cannula Oximizer Hi LPM 3.0 32 08/15/25 08:00 97.9 51 16 95/47 93 Nasal Cannula 2.0 24 08/15/25 08:00 93 Room Air* 0 21 08/15/25 07:27 51 18 N/Cannula Oximizer Hi LPM 3.0 32 LABS: Laboratory: Test 08/15/25 03:40 08/14/25 08:35 08/14/25 04:30 Range/Units White Blood Count 4.9 4.8-10.8 K/uL Red Blood Count 2.76 L 4.50-6.20 MIL/uL Hemoglobin 8.4 L 14.0-18.0 g/dL Hematocrit 25.5 L 42-54 % Mean Corpuscular Volume 92.4 79-99 fL Mean Corpuscular Hemoglobin 30.4 27.0-33.0 pg Mean Corpuscular Hemoglobin Concent 32.9 32.0-36.0 g/dL Red Cell Distribution Width 14.7 11.0-15.5 % Platelet Count 124 L 130-400 K/uL Mean Platelet Volume 10.1 7.5-10.5 fL Immature Granulocyte % (Auto) 0.4 0-1 % Neutrophils (%) (Auto) 82.2 H 40.0-77.0 % Lymphocytes (%) (Auto) 8.7 L 21.0-51.0 % Monocytes (%) (Auto) 8.7 3.0-13.0 % Eosinophils (%) (Auto) 0.0 0.0-8.0 % Basophils (%) (Auto) 0.0 0.0-5.0 % Neutrophils # (Auto) 4.1 1.8-7.7 K/uL Lymphocytes # (Auto) 0.4 L 1.0-4.8 K/uL Monocytes # (Auto) 0.4 0.1-1.0 K/uL Eosinophils # (Auto) 0.00 0.00-0.70 K/uL Basophils # (Auto) 0.00 0.00-0.20 K/uL Absolute Immature Granulocyte (auto 0.02 0-1 K/uL Nucleated Red Blood Cells 0.0 0.0-0.19 % Sodium Level 141 136-145 mmol/L Potassium Level 3.5 3.5-5.1 mmol/L Chloride Level 104 101-111 mmol/L Carbon Dioxide Level 31 21-32 mmol/L Blood Urea Nitrogen 37 H 7-18 mg/dL Creatinine 1.1 0.5-1.3 mg/dL Glomerular Filtration Rate Calc 68 >90 mL/min Random Glucose 122 H 70-105 mg/dL Total Calcium 7.6 L 8.5-10.1 mg/dL Total Bilirubin 0.7 # 0.2-1.0 mg/dL Aspartate Amino Transf (AST/SGOT) 39 H 10-37 U/L Alanine Aminotransferase (ALT/SGPT) 20 12-78 U/L Alkaline Phosphatase 59 50-136 U/L B-Type Natriuretic Peptide 2240 H 0-100 pg/mL Total Protein 5.8 L 6.0-8.3 g/dL Albumin 2.4 L 3.5-5.0 g/dL Iron Level 42 #L 65-175 mcg/dL Total Iron Binding Capacity 150 L 250-450 mcg/dL Percent Iron Saturation 28.0 L 30-44 % Tumor Marker Alpha Fetoprotein 44.7 H 0.0-8.4 ng/mL Free Thyroxine (T4) Direct 0.89 0.76-1.46 ng/dL Free Triiodothyronine (T3) pg/mL 1.20 L 2.18-3.98 pg/mL Activated Partial Thromboplast Time 36.4 H 26.3-35.5 SEC Lactic Acid Level 1.8 0.8-2.5 mmol/L Phosphorus Level 3.0 2.5-4.9 mg/dL Magnesium Level 2.30 1.80-2.40 mg/dL Total Creatine Kinase 159 # 21-232 U/L Troponin I High Sensitivity 42874.1 *H 4-75 ng/L Current Medications Medications (Trade) Dose Ordered Sig/Chaka Route PRN Reason Start Time Stop Time Status Last Admin Dose Admin Acetaminophen (TYLenol 325MG TAB) 650 mg Q6H PRN PO TEMPERATURE GREATER THAN 101.5 08/11/25 03:00 09/10/25 02:59 08/12/25 12:33 650 MG Aspirin (Aspirin 81mg Ec Tab) 81 mg DAILY PO 08/11/25 09:00 09/10/25 08:59 08/15/25 08:24 81 MG Clopidogrel Bisulfate (plaVIX 75MG) 75 mg DAILY PO 08/11/25 09:00 09/10/25 08:59 08/15/25 08:24 75 MG Diphenhydramine HCl (BENAdryl INJ) 50 mg ONCALL IV 08/12/25 07:00 08/13/25 06:59 DC 08/13/25 07:00 50 MG EZETIMIBE (Zetia) 10 mg DAILY PO 08/14/25 09:00 09/13/25 08:59 08/15/25 08:29 10 MG Famotidine (Pepcid 20mg Vial) 20 mg ONCALL IV 08/12/25 07:00 08/13/25 06:59 DC 08/13/25 07:00 20 MG Famotidine (Pepcid 20mg Tab) 20 mg DAILY PO 08/11/25 09:00 08/11/25 08:34 DC 08/11/25 08:17 20 MG Furosemide (LASix 20MG VIAL) 20 mg BID IV 08/14/25 22:30 09/13/25 22:29 08/15/25 08:24 20 MG Furosemide (LASix 20MG VIAL) 20 mg Q8H IV 08/11/25 08:30 08/13/25 16:39 DC 08/13/25 11:31 20 MG Furosemide (LASix 20MG VIAL) 20 mg Q8H IV 08/13/25 20:00 08/14/25 20:00 DC 08/14/25 22:34 20 MG Heparin Sodium (Porcine) (HEParin 5,000 UNIT VIAL) *calculation based on ACTUAL B... AD PRN IV HEPARIN PROTOCOL 08/11/25 02:00 08/13/25 10:35 DC Heparin Sodium/ Dextrose 250 ml @ 0 mls/hr Q6H IV 08/11/25 02:00 08/13/25 10:35 DC 08/12/25 09:48 0 MLS/HR Hydralazine HCl (APRESOLine 20MG INJ) 10 mg Q6H PRN IV For:SBP above 160;DBP above 90 08/11/25 03:00 08/11/25 04:10 DC Labetalol HCl (TRANdate 20MG SYG) 10 mg Q4H PRN IV SBP >160 08/11/25 04:30 09/10/25 04:29 Midodrine (PROAMatine 5 MG TABLET) 5 mg TID PO 08/14/25 14:00 09/13/25 13:59 08/14/25 22:33 5 MG Morphine Sulfate (morPHINE 2MG SYG) 2 mg Q4H PRN IVP SEVERE PAIN (7-10) 08/11/25 03:30 08/18/25 03:29 Nitroglycerin (Nitrostat) 0.4 mg AD PRN SL CHEST PAIN 08/11/25 01:30 08/11/25 03:13 DC Nitroglycerin (Nitrostat) 0.4 mg PROTOCOL PRN SL CHEST PAIN 08/11/25 03:00 09/10/25 02:59 Norepinephrine 250 ml @ 24.338 mls/ hr PROTOCOL PRN IV KEEP MAP > 65 08/12/25 03:30 09/11/25 03:29 08/12/25 03:42 24.338 MLS/HR Ondansetron HCl (zoFRAN 4MG INJ) 4 mg Q6H PRN IV NAUSEA/VOMITING 08/11/25 03:00 09/10/25 02:59 Pantoprazole Sodium (PROTonix 40MG TAB) 40 mg DAILY PO 08/11/25 09:00 09/10/25 08:59 08/15/25 08:24 40 MG Sodium Chloride 1,000 ml @ 100 mls/hr Q10H IV 08/13/25 11:00 08/13/25 13:59 DC 08/13/25 11:04 100 MLS/HR DIAGNOSTICS / RADIOLOGY: [facility] [address] [place], [place] [id number] IMAGING REPORT Signed PATIENT: MARTHA GONZALEZ MR#: [id number] : 1945 SEX: M AGE: 80 LOCATION: 2A ORDER 1123 STATUS: ADM IN REPORT#: [id number] SERVICE 1122 REASON: Ischemic cardiomyopathy ORDERING PHYSICIAN: INOCENCIA ERNST PAC PROCEDURE: ECHO FU LD - ECHO 2-D F/U-LTD APPROVED REPORT EXAM: LIMITED Two-dimensional and M-mode echocardiogram. Study Details: Previous echo 08/11/25 INDICATION ICD: Ischemic cardiomyopathy I25.5 2D Dimensions RVDd 4.6 cm LVED Vol(simp.) 175.3 mL LVES Vol(simp.) 107.2 mL LVEF(%, simp.) 39 % LA ESV INDEX (BP) 50.28 mL/m2 Deformation Strain Apical 4 -7.1 % Apical 2 -7.8 % Apical 3 -8.5 % Global Strain -7.8 % Left Ventricle The left ventricle is dilated. The mid/apical anterior, apical inferoseptal, apical inferior west and apex are hypokinetic. The other west are grossly normal in function. Mild eccentric left ventricular hypertrophy. Left ventricle systolic function is moderate to severely depressed, estimated LVEF 35 to 40%. Indeterminate diastolic dysfunction. Right Ventricle The right ventricle is mildly dilated. The right ventricular systolic function is mildly depressed. Atria The left atrium is severely dilated, 50 mL/m. The right atrium is dilated. Aortic Valve Aortic valve is trileaflet. Mitral Valve The mitral valve is normal in structure. The leaflets are mildly thickened and calcified. Tricuspid Valve The tricuspid valve is normal in structure. Great Vessels The aortic root is normal in size. Pericardium No pericardial effusion. Conclusion The left ventricle is dilated. Mild eccentric left ventricular hypertrophy. The mid/apical anterior, apical inferoseptal, apical inferior west and apex are hypokinetic. The other west are grossly normal in function. Left ventricle systolic function is moderate to severely depressed, estimated LVEF 35 to 40%. Indeterminate diastolic dysfunction. The right ventricular systolic function is mildly depressed. The gradients across the valves were not assessed. Right-sided pressures were not assessed. No pericardial effusion. DICTATED BY: DUANE MAYFIELD MD DATE: 08/14/25 1202 ELECTRONICALLY SIGNED BY: DUANE MAYFIELD MD DATE: 08/15/25 0146 ASSESSMENT: [Acute ST-elevation myocardial infarction on admission, not candidate for emergent LHC as patient presented 48 hours after incident Acute pulmonary edema leading to acute hypoxemic respiratory failure Acute on chronic diastolic heart failure secondary to acute STEMI Status post LHC with evidence of triple-vessel coronary artery disease with stenting x3 Anemia of chronic disease Primary hypertension Obstructive coronary artery disease Atherosclerosis History of neuroendocrine cancer History of CABG History of cardiac stent History of liver mass/cancer s/p treatment by [facility] ] PLAN: Acute Coronary Syndrome STEMI, s/p Complex PCI (08/13) s/p PTCA/PCI of distal left main, ostial LAD, proximalmid LAD 3 stents. Pre-PCI LVEF 3035% (prior EF 5055% in Sep 2024) indicating ischemic cardiomyopathy. Troponins previously elevated (>>10,000). No recurrent chest pain today. Access site clean; no groin hematoma. On 3 L O2; intermittent BiPAP; pulmonary edema on CXR. Continue DAPT: Aspirin 81 mg daily, Clopidogrel 75 mg daily, continue 12 months Continue Zetia 10 mg daily Nitroglycerin SL PRN chest pain; hold SBP <100 Repeat limited echocardiogram to reassess EF post-revascularization de monstrated an ejection fraction of 35-40%, cardiology recommended the patient be discharged on LifeVest. Telemetry monitoring Daily weights, strict I/O Monitor groin access site Acute Pulmonary Edema with Acute Hypoxemic Respiratory Failure CXR 03/28/: cardiomegaly, pulmonary vascular congestion, pulmonary edema Using intermittent BiPAP Continue IV furosemide, taper to 20 mg IV BID Wean BiPAP as tolerated Monitor electrolytes with serial labs. Maintain negative or net-even fluid balance Acute on Chronic Systolic + Diastolic Heart Failure (EF 3035%, Stage II DD) Post-ischemic drop in EF Blood pressure soft; cannot tolerate full GDMT yet Start midodrine 5 mg TID for BP support Advance GDMT (OSCAR-I/ARB/ARNI, b-daryn, MRA, SGLT2-i) as tolerated by BP after midodrine response Hold outpatient antihypertensives until BP improves Continue diuresis as above Peripheral Arterial Disease Arterial ultrasound: multilevel atherosclerotic disease, biphasic flow; early arterial insufficiency Lower extremities without acute ischemia on exam Patient weaker today but no focal limb pain Continue antiplatelet therapy PT/OT when cleared Follow final arterial duplex interpretation once posted Consider outpatient vascular referral after stabilization Normocytic Anemia / Anemia of Chronic Disease Chronic disease from cancer + recent procedures Hgb trending (8.4 today) Transfuse only if Hgb <7 or symptomatic Hypotension (Now Improving) Initially required norepinephrine ; now OFF pressors Currently low-normal BP Cardiology started midodrine 5 mg TID Continue midodrine Avoid aggressive antihypertensives Monitor BP q4h Neuroendocrine Tumor with Liver Metastases s/p recent liver ablation at [facility] Was planning radiation before this admission Continue supportive care Ensure follow-up with [facility] post-discharge DVT prophylaxis with SCDs. GI prophylaxis with Protonix 40 mg p.o. daily. ATTESTATION BY PHYSICIAN I have seen and examined the patient. I reviewed the documentation, medical decision making, and treatment plan as noted by the resident physician above. I agree with the findings and plan of care. BURAK GAR MD, HEMA MD Aug 15, 2025 14:41
[2025-08-16] VITALS (11 sets, daily range): BP systolic 95–131; BP diastolic 40–62; PULSE 50–63; RESP 16–20; TEMP 97.4–98.3; O2SAT 92–99
[2025-08-16 05:28] LABS: IMMATURE GRANULOCYTE ABSOLUTE 0.03 K/uL (0-1); NUCLEATED RED BLOOD CELLS 0.0 % (0.0-0.19); PLATELET COUNT (AUTO) 122 K/uL (130-400); RED BLOOD CELL COUNT(AUTO) 2.73 MIL/uL (4.50-6.20); RED CELL DISTRIBUTION WIDTH 14.2 % (11.0-15.5); WHITE BLOOD COUNT (AUTO) 5.0 K/uL (4.8-10.8)
[2025-08-16 05:39] LABS: CREATININE 1.0 mg/dL (0.5-1.3); GLOMERULAR FILTR. RATE CALC 76.0 mL/min (>90); GLUCOSE,RANDOM 116.0 mg/dL (70-105); SODIUM SERUM 139.0 mmol/L (136-145); UREA NITROGEN, BLOOD 32.0 mg/dL (7-18)
[2025-08-16] MEDS: PoTASSium chloRIDE 20MEQ ER 20 MEQ ERTAB PO PRN (09:49)
[2025-08-16] MEDS ORDERED: PoTASSium chl 10% ELIXIR 20MEQ 20 MEQ/15 ML UDCUP PO PRN (10:00)
--- NOTE | 2025-08-16 12:00 | PN ---
[facility] CARDIOLOGY PROGRESS NOTE Date Patient Seen: Aug 16, 2025 Time of Visit: 11:57 Interval History: [ No acute events overnight. Patient is denying any cardiac symptoms or anginal equivalents. Cooperating with PT OT. Today's chest x-ray shows improvement with continue with ongoing mild congestion. Physical Examination: GENERAL: [No acute distress.] HEAD: [Normal with no signs of head trauma.] EYES: [PERRLA, EOMI, conjunctiva and sclera normal.] ENT: [Hearing grossly intact, normal oropharynx.] NECK: [Supple without JVD. There is no tenderness, lymphadenopathy, or masses. No thyromegaly. Normal carotid upstrokes without bruits.] LUNGS: [Decreased breath sounds in the bases bilaterally] HEART: [Bradycardic rate and rhythm. Normal S1 and S2 without murmurs, gallop or rub.] VASC: [Peripheral pulses +2 bilaterally.] ABD: [Bowel sounds normal, soft, nontender, no masses, no organomegaly. No audible bruits.] : [Not examined] LYMPH: [No lymphadenopathy noted.] EXT: [No clubbing, cyanosis or edema.] SKIN: [No rashes or lesions noted.] NEURO: [Awake, alert, and oriented x3. No focal sensory or strength deficits noted.] Laboratory: [ ] Hematology Labs: Test 08/16/25 04:53 Range/Units White Blood Count 5.0 4.8-10.8 K/uL Red Blood Count 2.73 L 4.50-6.20 MIL/uL Hemoglobin 8.3 L 14.0-18.0 g/dL Hematocrit 25.3 L 42-54 % Mean Corpuscular Volume 92.7 79-99 fL Mean Corpuscular Hemoglobin 30.4 27.0-33.0 pg Mean Corpuscular Hemoglobin Concent 32.8 32.0-36.0 g/dL Red Cell Distribution Width 14.2 11.0-15.5 % Platelet Count 122 L 130-400 K/uL Mean Platelet Volume 10.1 7.5-10.5 fL Immature Granulocyte % (Auto) 0.6 0-1 % Neutrophils (%) (Auto) 77.6 H 40.0-77.0 % Lymphocytes (%) (Auto) 10.9 L 21.0-51.0 % Monocytes (%) (Auto) 9.5 3.0-13.0 % Eosinophils (%) (Auto) 1.4 0.0-8.0 % Basophils (%) (Auto) 0.0 0.0-5.0 % Neutrophils # (Auto) 3.8 1.8-7.7 K/uL Lymphocytes # (Auto) 0.5 L 1.0-4.8 K/uL Monocytes # (Auto) 0.5 0.1-1.0 K/uL Eosinophils # (Auto) 0.07 0.00-0.70 K/uL Basophils # (Auto) 0.00 0.00-0.20 K/uL Absolute Immature Granulocyte (auto 0.03 0-1 K/uL Nucleated Red Blood Cells 0.0 0.0-0.19 % Chemistry Labs: Test 08/16/25 04:53 08/15/25 03:40 Range/Units Sodium Level 139 136-145 mmol/L Potassium Level 3.3 L 3.5-5.1 mmol/L Chloride Level 103 101-111 mmol/L Carbon Dioxide Level 30 21-32 mmol/L Blood Urea Nitrogen 32 H 7-18 mg/dL Creatinine 1.0 0.5-1.3 mg/dL Glomerular Filtration Rate Calc 76 >90 mL/min Random Glucose 116 H 70-105 mg/dL Total Calcium 7.6 L 8.5-10.1 mg/dL B-Type Natriuretic Peptide 1900 H 0-100 pg/mL Total Bilirubin 0.7 # 0.2-1.0 mg/dL Aspartate Amino Transf (AST/SGOT) 39 H 10-37 U/L Alanine Aminotransferase (ALT/SGPT) 20 12-78 U/L Alkaline Phosphatase 59 50-136 U/L Total Protein 5.8 L 6.0-8.3 g/dL Albumin 2.4 L 3.5-5.0 g/dL Diagnostics / Radiology: [Copy/Paste Echos/Imaging Report here] Impression and Plan: [1. ACS-STEMI. 2. Status post PTCA/PCI of the distal left main, ostial LAD and proximal to mid LAD 08/13/2025 with patent SVG to distal RCA and 100% stenosis in the SVG to OM1. 3. Ischemic cardiomyopathy. 4. 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 5. Left renal mass. ] # ACS-STEMI Patient's blood pressure continues to be soft, currently at 108/48mmhg. we will continue midodrine5 mg every 8 hours He presented with a STEMI status post PTCA/PCI of the distal left main, ostial LAD and proximal to mid LAD with patent SVG to distal RCA, 100% stenosis in the SVG to OM1 and nonobstructive disease in the left circumflex. 08/13/2025. Currently the patient denies any chest pain, palpitations, dyspnea or any other anginal equivalents. Please keep on telemetry, monitor/replace electrolytes as needed Patient will require DAPT for 12 months ([id number] mg daily, [id number] mg daily), atorvastatin 40 mg daily #HFrEF ICM-LVEF 35-40%-NYHA III Compensated and euvolemic on exam Blood pressure is continues to be soft, continue midodrine 5 mg every 8 hours His preop echocardiogram showed an ejection fraction of 30-35% which has declined from an ejection fraction of 50-55% in September 2024 Repeat 2D echocardiogram revealed LVEF 35-40% dilated left ventricle, hypokinetic mid/apical anterior, apical inferoseptal, apical inferior west and apex. (08/14/2025) Strict I's and O's and daily weights. Chest x-ray shows improvement but continued with mild congestion. Continue Lasix 20 mg IV every 12 hours. We will assess the patient tomorrow morning to transitioned to oral Lasix Unable to optimize GDM T due to soft blood pressures and current use of midodrine. We had an extensive discussion with the patient regarding placement of life vest, patient verbalized understanding combined consents. Pending placement We will recommend aggressive PT OT Thank you for this consult cardiology will continue to follow along Zack gutierrez MD ATTESTATION BY PHYSICIAN I have seen and examined the patient, reviewed the above documentation, participated in medical decision making, made necessary modifications, and agree with the treatment plan as documented by my mid-level provider above. MD CAMILLA Marques,ZACK Lin MD Aug 16, 2025 12:00
--- NOTE | 2025-08-16 12:47 | PN ---
[facility] PROGRESS NOTE Date Patient Seen: Aug 16, 2025 Time of Visit: 12:45 Supervising Physician: TITUS LEMOS MD Supervising Physician: Dr. King Primary Care Physician: FLAQUITO LEON IV Outpatient Specialists: [ ] Inpatient Consults: NANNETTE PROBLEM LIST: Acute ST-elevation myocardial infarction on admission, not candidate for emergent LHC as patient presented 48 hours after incident Acute pulmonary edema leading to acute hypoxemic respiratory failure Acute on chronic diastolic heart failure secondary to acute STEMI Status post LHC with evidence of triple-vessel coronary artery disease with stenting x3 Anemia of chronic disease Primary hypertension Obstructive coronary artery disease Atherosclerosis History of neuroendocrine cancer History of CABG History of cardiac stent INTERVAL HISTORY: Patient is seen and evaluated He is awake and alert He is on room air No acute distress No major complaints Eating, no constipation no nausea, no vomiting no fevers, no chills REVIEW OF SYSTEMS: 12 point ROS reviewed with patient. Pertinent positives mentioned above. Otherwise negative. PHYSICAL EXAM: GENERAL: alert, weak, awake oriented x 3 HEENT: EOMI, Sclera non icteric, moist mucosa NECK: Supple, no JVD, trachea midline LUNGS: Clear breath sounds bilaterally. No wheezes HEART: Regular rate and rhythm. Normal S1 and S2, without murmurs ABD: Abdomen soft, nontender. Bowel sounds present EXT: No clubbing cyanosis or edema NEURO: Alert and oriented to person, follows commands Vital Signs (last 8hr) Date Time Temp Pulse Resp B/P (MAP) Pulse Ox O2 Delivery O2 Flow Rate FiO2 08/16/25 11:57 97.5 52 16 125/58 99 Room Air 08/16/25 07:56 97 Room Air* 0 21 08/16/25 07:55 97.7 54 16 108/48 97 Room Air 08/16/25 07:16 63 18 N/A Room Air 21 LABS: Hematology Labs: Test 08/16/25 04:53 Range/Units White Blood Count 5.0 4.8-10.8 K/uL Red Blood Count 2.73 L 4.50-6.20 MIL/uL Hemoglobin 8.3 L 14.0-18.0 g/dL Hematocrit 25.3 L 42-54 % Mean Corpuscular Volume 92.7 79-99 fL Mean Corpuscular Hemoglobin 30.4 27.0-33.0 pg Mean Corpuscular Hemoglobin Concent 32.8 32.0-36.0 g/dL Red Cell Distribution Width 14.2 11.0-15.5 % Platelet Count 122 L 130-400 K/uL Mean Platelet Volume 10.1 7.5-10.5 fL Immature Granulocyte % (Auto) 0.6 0-1 % Neutrophils (%) (Auto) 77.6 H 40.0-77.0 % Lymphocytes (%) (Auto) 10.9 L 21.0-51.0 % Monocytes (%) (Auto) 9.5 3.0-13.0 % Eosinophils (%) (Auto) 1.4 0.0-8.0 % Basophils (%) (Auto) 0.0 0.0-5.0 % Neutrophils # (Auto) 3.8 1.8-7.7 K/uL Lymphocytes # (Auto) 0.5 L 1.0-4.8 K/uL Monocytes # (Auto) 0.5 0.1-1.0 K/uL Eosinophils # (Auto) 0.07 0.00-0.70 K/uL Basophils # (Auto) 0.00 0.00-0.20 K/uL Absolute Immature Granulocyte (auto 0.03 0-1 K/uL Nucleated Red Blood Cells 0.0 0.0-0.19 % Chemistry Labs: Test 08/16/25 04:53 08/15/25 03:40 Range/Units Sodium Level 139 136-145 mmol/L Potassium Level 3.3 L 3.5-5.1 mmol/L Chloride Level 103 101-111 mmol/L Carbon Dioxide Level 30 21-32 mmol/L Blood Urea Nitrogen 32 H 7-18 mg/dL Creatinine 1.0 0.5-1.3 mg/dL Glomerular Filtration Rate Calc 76 >90 mL/min Random Glucose 116 H 70-105 mg/dL Total Calcium 7.6 L 8.5-10.1 mg/dL B-Type Natriuretic Peptide 1900 H 0-100 pg/mL Total Bilirubin 0.7 # 0.2-1.0 mg/dL Aspartate Amino Transf (AST/SGOT) 39 H 10-37 U/L Alanine Aminotransferase (ALT/SGPT) 20 12-78 U/L Alkaline Phosphatase 59 50-136 U/L Total Protein 5.8 L 6.0-8.3 g/dL Albumin 2.4 L 3.5-5.0 g/dL DIAGNOSTICS / RADIOLOGY RESULTS: Reviewed PLAN Pending Life Vest Pending 6 minute walk if he fails 6 minute walk, case management for home O2 we will sign off from case today NEURO: Minimize central acting medications as possible. Maintain fall precautions, adequate lighting during the day PULMONARY: Supplemental 02 as needed. Maintain aspiration precautions at all times CARDIOVASCULAR: Follow hemodynamics. Vital signs per facility protocol GI & NUTRITION: Continue with nutritional support. Continue stool softeners and laxatives as needed. KIDNEYS & ELECTROLYTES: Strict monitoring of intake, output and overall fluid balance. Avoid nephrotoxic medications to the extent possible. Medications to be dosed according to renal function. Monitor electrolytes and replace as needed ENDOCRINE: Maintain blood glucose between 100-180 at all times. Hypoglycemia protocol in place INFECTIOUS DISEASE: Trend temperature, WBC and procalcitonin level Follow cultures, deescalate antibiotics as soon as possible. Panculture if new onset fever ONCOLOGY/HEMATOLOGY/COAGULATION: Monitor for s/s of bleeding Monitor hemoglobin, coagulation studies as needed SKIN: Pressure ulcer prevention per facility protocol Specialty mattress ORTHO/REHAB: Continue PT/OT Prophylaxis: Continue GI and DVT prophylaxis Code Status: Full Resuscitation Disposition: as per PCP I personally scribed for TITUS SAUCEDA MD ([email or web address]) on 08/16/25 at 12:47. Electronically submitted by Flaquito Bates ([email or web address]). TITUS SAUCEDA MD Aug 16, 2025 12:47
--- NOTE | 2025-08-16 14:40 | NUR ---
RECEIVED CALL FROM [employer] LIFE VEST REPSERGIO. SERGIO STATED PATIENT DOES HAVE VALID DIAGNOSIS FOR LIFE VEST HOWEVER WILL NEED CLARIFICATION BY PHYSICIAN (DR. Kulwinder SAMPSON) ON EF RANGE IN ORDER FOR PATIENT TO MEET CRITERIA FOR LIFE VEST. SERGIO STATED SHE WILL FORWARD NOTE TO LOCAL [employer]L REP, ESTEBAN. INFORMED SERGIO THAT NURSING WILL FOLLOW UP TOMORROW WITH DR. Kulwinder SAMPSON, PATIENT IS FOR DC PLANNING IN 24-48 HOURS. FAXED FACE SHEET REQUESTED BY SERGIO TO [phone]. INFORMED OFFICE SUPERVISOR GERHARD OF ABOVE.
--- NOTE | 2025-08-16 16:32 | PN ---
[facility] PROGRESS NOTE Date of Service: Aug 16, 2025 Time of Service: 16:27 SUBJECTIVE: [08/11/25 Mr. Chapa is an 80-year-old male that was seen and examined today on 08/11/25. Patient is a good historian of personal health. Patient's , Sol Chapa is at bedside. Patient reports that he came to the emergency department with a chief complaint of chest pain. Onset was at midnight. Location is midsternal. Duration is on and off. Character is described as pressure. Patient reports that pain r adiates to the jaw, neck, and bilateral arms. There was no alleviating factors. There was no aggravating factors. Patient reports associated shortness and breath. STEMI alert was called in the emergency department and emergency room physician spoke to conveyor system dispatcher who de activated STEMI alert. Patient was started on a heparin drip. Chest x-ray is significant for pulmonary edema and congestion. Labs are significant for BUN of , creatinine 1.1, calcium 8.3, BNP 2020, CK 264, troponin 54, ABG showed pH of 7.42, pCO2 of 33, PO2 67.8 On room air, lactic acid is elevated at 2.45 2 08/12/25 patient was seen by nurse practitioner and physician during rounding in room 219 Chest x-ray showed cardiomegaly and pulmonary vascular congestion/pulmonary edema and also some sternal wires possibly s/p CABG changes. 2D echo showed EF of 30 to 35% stage II diastolic dysfunction. Patient is pending still arterial ultrasound reading was performed but no results posted yet. Patient was evaluated by the conveyor system dispatcher and that is pending left heart catheterization with Dr. Sanchez today 08/12/2025 in the afternoon. Patient was shaved for C and was little bit cath now some blood is oozing from the pubic area. Patient also has a history of cancer Dr. Vora all terrain vehicle racer was consulted. Patient remains in ICU for now. We will continue to monitor patient in the meantime. A.m. labs. 08/13/25 patient was seen by nurse practitioner and physician during rounding in room 219. Patient is s/p left heart catheterization on 08/16/2025 and three stents were placed by Dr. Sanchez. Ultrasound venous showed multilevel atherosclerotic changes in bilateral lower limb arteries. Biphasic flow pattern in multiple arterial segments in both lower limbs suggestive of reduced arterial compliance and early arterial insufficiency. We will continue to monitor patient in the ICU medical management. Patient is off heparin and norepinephrine. Patient is pending PT evaluation. CC 10.5. Creatinine has worsened today is 1.4 BUN 47. We will continue to monitor patient in the meantime. A.m. labs] 08/14/2025: Patient was seen and evaluated at bedside in room 230. He was awake, alert, and oriented 3. He reports a known history of a neuroendocrine tumor of the intestine diagnosed 2 years ago, with metastasis to the liver. He has been receiving chemotherapy for the past year and was scheduled to begin radiation therapy prior to undergoing a peripheral angiogram, which complicated his clinical course and led to his current hospitalization. Oncology has been consulted, and their evaluation and recommendations are pending. The patient denies shortness of breath, chest pain, or palpitations. However, he reports experiencing increased generalized weakness today compared to yesterday. This w ill be monitored closely. He has been hypotensive today. Cardiology initiated midodrine 5 mg TID to support blood pressure. An echocardiogram will be performed today. Per cardiology recommendations, if his LVEF is <35%, he will require discharge with a LifeVest. He has no additional complaints, and all questions were answered. 08/15/2025: Patient was seen and evaluated bedside in room 230. He was awake, alert, and oriented x3, sitting comfortably in his chair during my visit. He reports that he is doing well today and denies and experiencing the fatigue he had yesterday. He denies any chest pain, shortness of breath, palpitations, dizziness, nausea, or vomiting. Cardiology performed an echocardiogram, which showed an ejection fraction of 35-40%. They have recommended placement of a LifeVest upon discharge. Regarding his cancer history, the patient stated that [facility] has placed his treatment on hold until his cardiac condition stabilizes. He has an upcoming appointment with Dr. Vora on August 25. As there is no acute oncologic intervention required during this hospitalization, a shared decision was made to cancel the inpatient oncology consult, with plans for outpatient follow up. The patient verbalized the understanding and agreement with this plan. Physical therapy is following, and the patient is ambulating well. He reports normal bowel movements and is tolera ting his diet without nausea or vomiting. He remains hemodynamically stable, with a blood pressure around 110 systolic, heart rate averaging 55 beats per minute. He is afebrile and maintaining oxygen saturation of 90% on 2 L nasal cannula. He has no additional complaints today. 08/16/25:Patient was seen and evaluated bedside in room 230. He was awake, alert, and oriented x3, sitting comfortably in his chair during my visit. Patient denies any chest pain, shortness of breath, palpitations, nausea or vom iting. Patient has no active complaints and is currently waiting for placement of Lifevest under cardiology recommendations before getting discharged. REVIEW OF SYSTEMS CONSTITUTIONAL: Denies fevers, chills, or night sweats. No unintentional weight loss reported. NEUROLOGICAL: Denies headache, amaurosis fugax, motor weakness, sensory deficit, vertigo/spinning sensation, gait abnormalities, or tremors. ENT: No hearing loss, otalgia, otorrhea, rhinitis, rhinorrhea, hoarseness, or sore throat. CARDIOVASCULAR: Denies any exertional angina, dyspnea on exertion, orthopnea, paroxysmal nocturnal dyspnea, palpitations, life-threatening arrhythmias, claudication.s/p [facility] PULMONARY: Denies any shortness of breath, cough, phlegm/sputum, hemoptysis, pleuritic chest pain. SLEEP: Denies morning headaches, daytime somnolence or napping. Denies difficulty falling asleep, staying asleep, waking from sleep. Denies knowledge of snoring. GASTROINTESTINAL: Denies any type of dysphagia to either liquids or solids. Denies nausea, vomiting, pyrosis, early satiety, abdominal pain, diarrhea, constipation, or changes in stool consistency or caliber. Denies coffee-ground emesis, hematemesis, hematochezia, or melanotic stools. GENITOURINARY: Denies frequency, urgency, nocturia, hematuria or incontinence (Storage/Irritative symptoms.) Low urinary stream, straining to void, urinary intermittency or hesitancy, splitting of the voiding stream, terminal dribbling. ENDOCRINOLOGIC: Denies polyuria, polydipsia, polyphagia or heat/cold intolerances. HEMATOLOGIC: Denies thrombophilia/previous clots, or coagulopathy/bleeding disorders. ONCOLOGIC: Denies personal history of malignancy. DERMATOLOGIC: Denies rashes or pruritus. PSYCHIATRIC: Denies any suicidal or homicidal ideation. Denies hallucinations. PHYSICAL EXAM GENERAL APPEARANCE: The patient is awake, alert, and oriented, in no acute cardiopulmonary distress. NEUROLOGICAL: Cranial nerves II-XII grossly intact. Motor is 5/5 in bilateral upper and lower extremities proximal to distal. No sensory deficits. HEENT: Face is symmetric. Pupils are equal and reactive. Extraocular movements are intact. NECK: Supple. No JVD. No thyromegaly. No submental, submandibular, pre- /postauricular, occipital or supraclavicular lymphadenopathy. CHEST: Normal chest expansion. No Telemetry. LUNGS: Absence of any rales, rhonchi or any wheezing. CARDIOVASCULAR: Regular. S1 and S2 normal. No appreciable rubs, murmurs or gallops. ABDOMEN: Soft, nontender, and nondistended. There is no rebound, voluntary guarding, or rigidity. : Deferred. No Matthews. EXTREMITIES: Non-edematous and not cyanotic. No clubbing. Good capillary ref ill. SKIN: No skin breakdown. Vital Signs (last 8hr) Date Time Temp Pulse Resp B/P (MAP) Pulse Ox O2 Delivery O2 Flow Rate FiO2 08/16/25 15:54 97.3 55 16 109/56 95 Room Air 08/16/25 11:57 97.5 52 16 125/58 99 Room Air LABS: Laboratory: Test 08/16/25 04:53 08/15/25 03:40 Range/Units White Blood Count 5.0 4.8-10.8 K/uL Red Blood Count 2.73 L 4.50-6.20 MIL/uL Hemoglobin 8.3 L 14.0-18.0 g/dL Hematocrit 25.3 L 42-54 % Mean Corpuscular Volume 92.7 79-99 fL Mean Corpuscular Hemoglobin 30.4 27.0-33.0 pg Mean Corpuscular Hemoglobin Concent 32.8 32.0-36.0 g/dL Red Cell Distribution Width 14.2 11.0-15.5 % Platelet Count 122 L 130-400 K/uL Mean Platelet Volume 10.1 7.5-10.5 fL Immature Granulocyte % (Auto) 0.6 0-1 % Neutrophils (%) (Auto) 77.6 H 40.0-77.0 % Lymphocytes (%) (Auto) 10.9 L 21.0-51.0 % Monocytes (%) (Auto) 9.5 3.0-13.0 % Eosinophils (%) (Auto) 1.4 0.0-8.0 % Basophils (%) (Auto) 0.0 0.0-5.0 % Neutrophils # (Auto) 3.8 1.8-7.7 K/uL Lymphocytes # (Auto) 0.5 L 1.0-4.8 K/uL Monocytes # (Auto) 0.5 0.1-1.0 K/uL Eosinophils # (Auto) 0.07 0.00-0.70 K/uL Basophils # (Auto) 0.00 0.00-0.20 K/uL Absolute Immature Granulocyte (auto 0.03 0-1 K/uL Nucleated Red Blood Cells 0.0 0.0-0.19 % Sodium Level 139 136-145 mmol/L Potassium Level 3.3 L 3.5-5.1 mmol/L Chloride Level 103 101-111 mmol/L Carbon Dioxide Level 30 21-32 mmol/L Blood Urea Nitrogen 32 H 7-18 mg/dL Creatinine 1.0 0.5-1.3 mg/dL Glomerular Filtration Rate Calc 76 >90 mL/min Random Glucose 116 H 70-105 mg/dL Total Calcium 7.6 L 8.5-10.1 mg/dL B-Type Natriuretic Peptide 1900 H 0-100 pg/mL Total Bilirubin 0.7 # 0.2-1.0 mg/dL Aspartate Amino Transf (AST/SGOT) 39 H 10-37 U/L Alanine Aminotransferase (ALT/SGPT) 20 12-78 U/L Alkaline Phosphatase 59 50-136 U/L Total Protein 5.8 L 6.0-8.3 g/dL Albumin 2.4 L 3.5-5.0 g/dL Current Medications Medications (Trade) Dose Ordered Sig/Chaka Route PRN Reason Start Time Stop Time Status Last Admin Dose Admin Acetaminophen (TYLenol 325MG TAB) 650 mg Q6H PRN PO TEMPERATURE GREATER THAN 101.5 08/11/25 03:00 09/10/25 02:59 08/12/25 12:33 650 MG Aspirin (Aspirin 81mg Ec Tab) 81 mg DAILY PO 08/11/25 09:00 09/10/25 08:59 08/16/25 09:48 81 MG Clopidogrel Bisulfate (plaVIX 75MG) 75 mg DAILY PO 08/11/25 09:00 09/10/25 08:59 08/16/25 09:48 75 MG Diphenhydramine HCl (BENAdryl INJ) 50 mg ONCALL IV 08/12/25 07:00 08/13/25 06:59 DC 08/13/25 07:00 50 MG EZETIMIBE (Zetia) 10 mg DAILY PO 08/14/25 09:00 09/13/25 08:59 08/16/25 09:48 10 MG Famotidine (Pepcid 20mg Vial) 20 mg ONCALL IV 08/12/25 07:00 08/13/25 06:59 DC 08/13/25 07:00 20 MG Famotidine (Pepcid 20mg Tab) 20 mg DAILY PO 08/11/25 09:00 08/11/25 08:34 DC 08/11/25 08:17 20 MG Furosemide (LASix 20MG TAB) 20 mg BID@09,17 PO 08/17/25 09:00 09/16/25 08:59 Furosemide (LASix 20MG VIAL) 20 mg BID IV 08/14/25 22:30 08/16/25 23:00 08/16/25 09:48 20 MG Furosemide (LASix 20MG VIAL) 20 mg Q8H IV 08/11/25 08:30 08/13/25 16:39 DC 08/13/25 11:31 20 MG Furosemide (LASix 20MG VIAL) 20 mg Q8H IV 08/13/25 20:00 08/14/25 20:00 DC 08/14/25 22:34 20 MG Heparin Sodium (Porcine) (HEParin 5,000 UNIT VIAL) *calculation based on ACTUAL B... AD PRN IV HEPARIN PROTOCOL 08/11/25 02:00 08/13/25 10:35 DC Heparin Sodium/ Dextrose 250 ml @ 0 mls/hr Q6H IV 08/11/25 02:00 08/13/25 10:35 DC 08/12/25 09:48 0 MLS/HR Hydralazine HCl (APRESOLine 20MG INJ) 10 mg Q6H PRN IV For:SBP above 160;DBP above 90 08/11/25 03:00 08/11/25 04:10 DC Labetalol HCl (TRANdate 20MG SYG) 10 mg Q4H PRN IV SBP >160 08/11/25 04:30 09/10/25 04:29 Midodrine (PROAMatine 5 MG TABLET) 5 mg TID PO 08/14/25 14:00 09/13/25 13:59 08/16/25 15:14 5 MG Morphine Sulfate (morPHINE 2MG SYG) 2 mg Q4H PRN IVP SEVERE PAIN (7-10) 08/11/25 03:30 08/16/25 06:29 DC Nitroglycerin (Nitrostat) 0.4 mg AD PRN SL CHEST PAIN 08/11/25 01:30 08/11/25 03:13 DC Nitroglycerin (Nitrostat) 0.4 mg PROTOCOL PRN SL CHEST PAIN 08/11/25 03:00 09/10/25 02:59 Norepinephrine 250 ml @ 24.338 mls/ hr PROTOCOL PRN IV KEEP MAP > 65 08/12/25 03:30 09/11/25 03:29 08/12/25 03:42 24.338 MLS/HR Ondansetron HCl (zoFRAN 4MG INJ) 4 mg Q6H PRN IV NAUSEA/VOMITING 08/11/25 03:00 09/10/25 02:59 Pantoprazole Sodium (PROTonix 40MG TAB) 40 mg DAILY PO 08/11/25 09:00 09/10/25 08:59 08/16/25 09:48 40 MG Potassium Chloride 100 ml @ 50 mls/hr AD PRN IV POTASSIUM PROTOCOL 08/16/25 10:00 08/16/25 09:47 DC Potassium Chloride 100 ml @ 100 mls/hr AD PRN IV POTASSIUM PROTOCOL 08/16/25 10:00 09/15/25 09:59 Potassium Chloride (K-Dur/Klor-Con 20meq) 20 meq AD PRN PO POTASSIUM PROTOCOL 08/16/25 10:00 09/15/25 09:59 08/16/25 15:15 20 MEQ Potassium Chloride (KCl 10% Elixir 20meq/15ml) 20 meq AD PRN PO POTASSIUM PROTOCOL 08/16/25 10:00 09/15/25 09:59 Sodium Chloride 1,000 ml @ 100 mls/hr Q10H IV 08/13/25 11:00 08/13/25 13:59 DC 11/26/25 11:04 100 MLS/HR DIAGNOSTICS / RADIOLOGY: [ ] ASSESSMENT: Acute ST-elevation myocardial infarction on admission, not candidate for emergent LHC as patient presented 48 hours after incident Acute pulmonary edema leading to acute hypoxemic respiratory failure Acute on chronic diastolic heart failure secondary to acute STEMI Status post LHC with evidence of triple-vessel coronary artery disease with stenting x3 Anemia of chronic disease Primary hypertension Obstructive coronary artery disease Atherosclerosis History of neuroendocrine cancer History of CABG History of cardiac stent History of liver mass/cancer s/p treatment by [facility] PLAN: Acute Coronary Syndrome STEMI, s/p Complex PCI (08/13) s/p PTCA/PCI of distal left main, ostial LAD, proximalmid LAD 3 stents. Pre-PCI LVEF 3035% (prior EF 5055% in Sep 2024) indicating ischemic cardiomyopathy. Troponins previously elevated (>>10,000). No recurrent chest pain today. Access site clean; no groin hematoma. On 3 L O2; intermittent BiPAP; pulmonary edema on CXR. Continue DAPT: Aspirin 81 mg daily, Clopidogrel 75 mg daily, continue 12 months Continue Zetia 10 mg daily Nitroglycerin SL PRN chest pain; hold SBP <100 Repeat limited echocardiogram to reassess EF post-revascularization demonstrated an ejection fraction of 35-40%, cardiology recommended the patient be discharged on LifeVest. Telemetry monitoring Daily weights, strict I/O Monitor groin access site Acute Pulmonary Edema with Acute Hypoxemic Respiratory Failure CXR 03/28/: cardiomegaly, pulmonary vascular congestion, pulmonary edema Using intermittent BiPAP Continue IV furosemide, taper to 20 mg IV BID Wean BiPAP as tolerated Monitor electrolytes with serial labs. Maintain negative or net-even fluid balance Acute on Chronic Systolic + Diastolic Heart Failure (EF 3035%, Stage II DD) Post-ischemic drop in EF Blood pressure soft; cannot tolerate full GDMT yet Start midodrine 5 mg TID for BP support Advance GDMT (OSCAR-I/ARB/ARNI, b-daryn, MRA, SGLT2-i) as tolerated by BP after midodrine response Hold outpatient antihypertensives until BP improves Continue diuresis as above Peripheral Arterial Disease Arterial ultrasound: multilevel atherosclerotic disease, biphasic flow; early arterial insufficiency Lower extremities without acute ischemia on exam Patient weaker today but no focal limb pain Continue antiplatelet therapy PT/OT when cleared Follow final arterial duplex interpretation once posted Consider outpatient vascular referral after stabilization Normocytic Anemia / Anemia of Chronic Disease Chronic disease from cancer + recent procedures Hgb trending (8.3 today) Transfuse only if Hgb <7 or symptomatic Hypotension (Now Improving) Initially required norepinephrine ; now OFF pressors Currently low-normal BP Cardiology started midodrine 5 mg TID Continue midodrine Avoid aggressive antihypertensives Monitor BP q4h Neuroendocrine Tumor with Liver Metastases s/p recent liver ablation at [facility] Was planning radiation before this admission Continue supportive care Ensure follow-up with [facility] post-discharge DVT prophylaxis with SCDs. GI prophylaxis with Protonix 40 mg p.o. daily. ATTESTATION BY PHYSICIAN I have seen and examined the patient. I reviewed the documentation, medical decision making, and treatment plan as noted by the resident provider above. I agree with the findings and plan of care. Luis An MD, SHAJI MD Aug 16, 2025 16:32
[2025-08-17] VITALS (9 sets, daily range): BP systolic 113–148; BP diastolic 55–78; PULSE 52–66; RESP 18; TEMP 97.5–98; O2SAT 97
--- NOTE | 2025-08-17 00:57 | HMCIMG ---
EXAM: XR Chest, 1 View(s). CLINICAL HISTORY: Follow up pulmonary edema. COMPARISON: 08/14/2025. FINDINGS: LUNGS: Interval improvement in bilateral airspace opacities when compared to the previous radiograph of 08/14/2025. Persistent hilar vascular congestion and interstitial markings. Minimal left basal atelectasis. These findings are in keeping interval improvement of pulmonary edema; clinical correlation and correlation with echocardiographic findings are recommended. PLEURAL SPACES: Small left-sided pleural effusion and left basal attelactasis, new from previous radiograph of 06/14/2025. No pneumothorax. HEART: Status post CABG. Cardiac silhouette is partly obscured. BONES: No acute osseous abnormality. IMPRESSION: 1. Interval improvement in bilateral airspace opacities, pulmonary edema when compared to the previous radiograph as of 08/14/2025. 2. Persistent bilateral hilar vascular congestion and interstitial markings. Interval development of left basal atelectasis and small left-sided pleural effusion; findings in keeping with known pulmonary odema, compared to CXR 08/14/2025. Correlate with clinical examination and echocardiography data. /[place]
[2025-08-17 04:53] LABS: IMMATURE GRANULOCYTE ABSOLUTE 0.04 K/uL (0-1); NUCLEATED RED BLOOD CELLS 0.0 % (0.0-0.19); PLATELET COUNT (AUTO) 135 K/uL (130-400); RED BLOOD CELL COUNT(AUTO) 2.79 MIL/uL (4.50-6.20); RED CELL DISTRIBUTION WIDTH 14.2 % (11.0-15.5); WHITE BLOOD COUNT (AUTO) 5.4 K/uL (4.8-10.8)
[2025-08-17 05:15] LABS: CREATININE 1.0 mg/dL (0.5-1.3); GLOMERULAR FILTR. RATE CALC 76.0 mL/min (>90); GLUCOSE,RANDOM 115.0 mg/dL (70-105); SODIUM SERUM 144.0 mmol/L (136-145); UREA NITROGEN, BLOOD 31.0 mg/dL (7-18)
--- NOTE | 2025-08-17 09:35 | PN ---
[facility] CARDIOLOGY PROGRESS NOTE Date Patient Seen: Aug 17, 2025 Time of Visit: 09:31 Interval History: [ No acute events overnight. Patient denies any chest pain, palpitations, dyspnea or any other anginal equivalents Physical Examination: GENERAL: [No acute distress.] HEAD: [Normal with no signs of head trauma.] EYES: [PERRLA, EOMI, conjunctiva and sclera normal.] ENT: [Hearing grossly intact, normal oropharynx.] NECK: [Supple without JVD. There is no tenderness, lymphadenopathy, or masses. No thyromegaly. Normal carotid upstrokes without bruits.] LUNGS: [Clear breath sounds, no crackles] HEART: [Bradycardic rate and rhythm. Normal S1 and S2 without murmurs, gallop or rub.] VASC: [Peripheral pulses +2 bilaterally.] ABD: [Bowel sounds normal, soft, nontender, no masses, no organomegaly. No audible bruits.] : [Not examined] LYMPH: [No lymphadenopathy noted.] EXT: [No clubbing, cyanosis or edema.] SKIN: [No rashes or lesions noted.] NEURO: [Awake, alert, and oriented x3. No focal sensory or strength deficits noted.] Laboratory: [ ] Hematology Labs: Test 08/17/25 04:45 Range/Units White Blood Count 5.4 4.8-10.8 K/uL Red Blood Count 2.79 L 4.50-6.20 MIL/uL Hemoglobin 8.6 L 14.0-18.0 g/dL Hematocrit 26.1 L 42-54 % Mean Corpuscular Volume 93.5 79-99 fL Mean Corpuscular Hemoglobin 30.8 27.0-33.0 pg Mean Corpuscular Hemoglobin Concent 33.0 32.0-36.0 g/dL Red Cell Distribution Width 14.2 11.0-15.5 % Platelet Count 135 130-400 K/uL Mean Platelet Volume 9.9 7.5-10.5 fL Immature Granulocyte % (Auto) 0.7 0-1 % Neutrophils (%) (Auto) 75.8 40.0-77.0 % Lymphocytes (%) (Auto) 11.5 L 21.0-51.0 % Monocytes (%) (Auto) 8.7 3.0-13.0 % Eosinophils (%) (Auto) 3.3 0.0-8.0 % Basophils (%) (Auto) 0.0 0.0-5.0 % Neutrophils # (Auto) 4.1 1.8-7.7 K/uL Lymphocytes # (Auto) 0.6 L 1.0-4.8 K/uL Monocytes # (Auto) 0.5 0.1-1.0 K/uL Eosinophils # (Auto) 0.18 0.00-0.70 K/uL Basophils # (Auto) 0.00 0.00-0.20 K/uL Absolute Immature Granulocyte (auto 0.04 0-1 K/uL Nucleated Red Blood Cells 0.0 0.0-0.19 % Chemistry Labs: Test 08/17/25 04:45 Range/Units Sodium Level 144 136-145 mmol/L Potassium Level 4.1 3.5-5.1 mmol/L Chloride Level 109 101-111 mmol/L Carbon Dioxide Level 28 21-32 mmol/L Blood Urea Nitrogen 31 H 7-18 mg/dL Creatinine 1.0 0.5-1.3 mg/dL Glomerular Filtration Rate Calc 76 >90 mL/min Random Glucose 115 H 70-105 mg/dL Total Calcium 7.7 L 8.5-10.1 mg/dL B-Type Natriuretic Peptide 2000 H 0-100 pg/mL Diagnostics / Radiology: [Copy/Paste Echos/Imaging Report here] Impression and Plan: [1. ACS-STEMI. 2. Status post PTCA/PCI of the distal left main, ostial LAD and proximal to mid LAD 08/13/2025 with patent SVG to distal RCA and 100% stenosis in the SVG to OM1. 3. Ischemic cardiomyopathy. 4. 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 5. Left renal mass. ] # ACS-STEMI Patient's blood pressure continues to be soft, currently at 108/48mmhg. we will continue midodrine5 mg every 8 hours He presented with a STEMI status post PTCA/PCI of the distal left main, ostial LAD and proximal to mid LAD with patent SVG to distal RCA, 100% stenosis in the SVG to OM1 and nonobstructive disease in the left circumflex. 08/13/2025. Currently the patient denies any chest pain, palpitations, dyspnea or any other anginal equivalents. Please keep on telemetry, monitor/replace electrolytes as needed Patient will require DAPT for 12 months ([id number] mg daily, Xueqcs84 mg daily), atorvastatin 40 mg daily, Zetia 10 mg daily Beta blockers are being deferred in the setting of bradycardia in the 50s #HFrEF ICM-LVEF 35-40%-NYHA III Compensated and euvolemic on exam Blood pressure is continues to be soft, continue midodrine 5 mg every 8 hours His preop echocardiogram showed an ejection fraction of 30-35% which has declined from an ejection fraction of 50-55% in September 2024 Repeat 2D echocardiogram revealed LVEF 35-40% dilated left ventricle, hypokinetic mid/apical anterior, apical inferoseptal, apical inferior west and apex. (08/14/2025) Strict I's and O's and daily weights. We will discontinue IV Lasix and transition to oral Lasix 40 mg daily Unable to optimize GDM T due to soft blood pressures and current use of midodrine and bradycardia. We had an extensive discussion with the patient regarding placement of life vest, patient verbalized understanding combined consents. Pending placement We will recommend aggressive PT OT Given the patient's EF was 35-40%, there was no need for a life vest placement Thank you for this consult cardiology will sign off at this time the patient can follow up in cardiology clinic 1-2 weeks after discharge Ángel gutierrez MD ATTESTATION BY PHYSICIAN I have seen and examined the patient, reviewed the above documentation, partic ipated in medical decision making, made necessary modifications, and agree with the treatment plan as documented by my mid-level provider above. MD CAMILLA Marques JAMES R MD Aug 17, 2025 09:35
--- NOTE | 2025-08-17 09:52 | NUR ---
Dr. Tevin Miramontes notified that patient reports lower extremities muscle pain when taking atorvastatin. Patient reports that he took atorvastatin for 25 years, stopped taking it about [address] Abarca ordered for the patient to resume taking atorvastatin and if it causes side effects will stop in clinic.
--- NOTE | 2025-08-17 13:10 | DS ---
Discharge Summary Hospital Course Summary: Presentation The patient is an 80-year-old male with a history of CABG 4, prior PCI, neuroendocrine tumor with liver metastases on oncology follow-up, diabetes, and hypertension who presented with acute midsternal chest pain radiating to the jaw, neck, and bilateral arms, associated with shortness of breath. A STEMI alert was activated but later deactivated by Cardiology. Initial workup showed troponin 54, BNP 2020, CK 264, lactic acid 2.45, and chest X-ray showing pulmonary edema. ABG showed hypoxemia, and the patient was started on a heparin drip and admitted to ICU. His was present throughout the evaluation. Inpatient Management During hospitalization, echo demonstrated an LVEF of 3035% with Stage II diastolic dysfunction. On 08/13, he underwent left heart catheterization with complex PCI, receiving three stents to the distal left main, ostial LAD, and [id number] LAD. Post-procedure imaging showed multilevel peripheral arterial disease but no acute limb ischemia. He initially required norepinephrine for hypotension but later stabilized and was transitioned to midodrine 5 mg TID. Post-PCI limited echocardiogram showed LVEF 3540%, representing ischemic cardiomyopathy; cardiology initially recommended LifeVest, but after reviewing updated echo and clinical stability, determined it was not required. He was treated for acute pulmonary edema with IV diuretics and intermittent BiPAP, then transitioned to oral Lasix. Stabilization & Discharge Readiness By discharge, the patient was hemodynamically stable, weaned off pressors, oxygen requirement decreased, and he was ambulating with PT. He denied chest pain, shortness of breath, palpitations, dizziness, nausea, or vomiting. On cology reported that systemic therapy at [facility] would remain on hold until cardiac stabilization; outpatient follow-up is scheduled. Cardiology finalized recommendations, including continuation of DAPT for 12 months and outpatient follow-up in 12 weeks. On discharge day, midodrine was held to ensure stable blood pressure prior to leaving. He remained stable and was deemed medically appropriate for discharge with close follow-up. Note: Full GDMT was not initiated during this admission due to persistent low blood pressure requiring midodrine, as well as bradycardia with heart rates in the 50s, making OSCAR-I/ARB/ARNI, beta-blockers, and SGLT2 inhibitors unsafe at this time. Cardiology recommends reassessment as an outpatient once hemodynamics stabilize.Additionally, The patient previously discontinued atorvastatin after 25 years due to myalgias. After discussion with Cardiology regarding the clear cardiovascular benefit and lack of alternative options given recent STEMI and complex PCI, the patient agreed to resume therapy. Atorvastatin was restarted prior to discharge with instructions to monitor for recurrent myalgias. Reading Coach(s): Cardiology: Impression and Plan: [1. ACS-STEMI. 2. Status post PTCA/PCI of the distal left main, ostial LAD and proximal to mid LAD 08/13/2025 with patent SVG to distal RCA and 100% stenosis in the SVG to OM1. 3. Ischemic cardiomyopathy. 4. 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 5. Left renal mass. ] # ACS-STEMI Patient's blood pressure continues to be soft, currently at 108/48mmhg. we will continue midodrine5 mg every 8 hours He presented with a STEMI status post PTCA/PCI of the distal left main, ostial LAD and proximal to mid LAD with patent SVG to distal RCA, 100% stenosis in the SVG to OM1 and nonobstructive disease in the left circumflex. 08/13/2025. Currently the patient denies any chest pain, palpitations, dyspnea or any other anginal equivalents. Please keep on telemetry, monitor/replace electrolytes as needed Patient will require DAPT for 12 months (knsgcyg37 mg daily, Yhzydx16 mg daily), atorvastatin 40 mg daily, Zetia 10 mg daily Beta blockers are being deferred in the setting of bradycardia in the 50s #HFrEF ICM-LVEF 35-40%-NYHA III Compensated and euvolemic on exam Blood pressure is continues to be soft, continue midodrine 5 mg every 8 hours His preop echocardiogram showed an ejection fraction of 30-35% which has d eclined from an ejection fraction of 50-55% in September 2024 Repeat 2D echocardiogram revealed LVEF 35-40% dilated left ventricle, hypokinetic mid/apical anterior, apical inferoseptal, apical inferior west and apex. (08/14/2025) Strict I's and O's and daily weights. We will discontinue IV Lasix and transition to oral Lasix 40 mg daily Unable to optimize GDM T due to soft blood pressures and current use of midodrine and bradycardia. We had an extensive discussion with the patient regarding placement of life vest, patient verbalized understanding combined consents. Pending placement We will recommend aggressive PT OT Given the patient's EF was 35-40%, there was no need for a life vest placement Thank you for this consult cardiology will sign off at this time the patient can follow up in cardiology clinic 1-2 weeks after discharge Pulmonology: PLAN Pending Life Vest Pending 6 minute walk if he fails 6 minute walk, case management for home O2 we will sign off from case today NEURO: Minimize central acting medications as possible. Maintain fall precautions, adequate lighting during the day PULMONARY: Supplemental 02 as needed. Maintain aspiration precautions at all times CARDIOVASCULAR: Follow hemodynamics. Vital signs per facility protocol GI & NUTRITION: Continue with nutritional support. Continue stool softeners and laxatives as needed. KIDNEYS & ELECTROLYTES: Strict monitoring of intake, output and overall fluid balance. Avoid nephrotoxic medications to the extent possible. Medications to be dosed according to renal function. Monitor electrolytes and replace as needed ENDOCRINE: Maintain blood glucose between 100-180 at all times. Hypoglycemia protocol in place INFECTIOUS DISEASE: Trend temperature, WBC and procalcitonin level Follow cultures, deescalate antibiotics as soon as possible. Panculture if new onset fever ONCOLOGY/HEMATOLOGY/COAGULATION: Monitor for s/s of bleeding Monitor hemoglobin, coagulation studies as needed SKIN: Pressure ulcer prevention per facility protocol Specialty mattress ORTHO/REHAB: Continue PT/OT Prophylaxis: Continue GI and DVT prophylaxis Code Status: Full Resuscitation Disposition: as per PCP Procedure(s): PROCEDURE NOTE Name: MARTHA GONZALEZ Acct: [id number] MR: [id number] : 1945 Admit Date: 08/11/25 DUANE MAYFIELD MD [place] [address] [place] [id number] PROCEDURE NOTE Indications: 1. ACS-STEMI 2. Cardiogenic shock 3. Acute HFrEF (LVEF: 30-35% by echo done 08/11/2025) 4. 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 New endocrine tumor with metastasis 6. Anemia 7. CAD s/p CABG Procedures: Femoral angiogram, LHC, coronary angiogram, PCI with balloon angioplasty, balloon lithotripsy and LIONEL placement in the mid and distal left main, ostial LAD, and proximal-mid LAD. Introduction: After informed written consent was obtained, the patient was brought to the Catheterization Lab in the usual fasting state. Following sterile prep and drape, a time out was performed, then moderate sedation was administered, 25mcg of Fentanyl, then 1% Lidocaine was infiltrated into the left femoral groin. Using a Modified Seldinger technique, a 6Fr Sheath was inserted into the left common femoral artery. While under fluoroscopic guidance, diagnostic coronary catheters were advanced over a wire into the central circulation where they were aspirated, flushed and placed to pressure monitoring, once the wire was removed. Coronary Angio: The left and right coronary arteries were engaged with appropriate catheters and angiography was performed under continuous pressure monitoring. Left Heart Catheterization: A JR4 catheter was inserted into the LV and the pressure was recorded, then the catheter was removed from the LV. Cardiac Findings: Co-dominant system LM: Medium caliber vessel with 90% stenosis in the distal LM. The vessel bifurcates into the LAD and LCX. LAD: Medium caliber vessel with 99% stenosis (subtotal occlusion) with thrombus formation in the ostial LAD. There is a patent stent in the proximal LAD. There is 80% stenosis in the proximal mid LAD. JIGAR 2 flow distally. Diagonal 1: Small caliber vessel mild luminal irregularities LCx: Large caliber vessel with 50% stenosis in the proximal LCX. OM1: Medium caliber vessel with mild luminal irregularities RCA: Small caliber vessel with 70% stenosis in the ostial RCA and diffuse 90% stenosis in the mid RCA. The rest of the vessel has mild luminal irregularities. RPDA: Small caliber vessel mild luminal irregularities. RPLV: Small caliber vessel with mild luminal irregularities. LVEDP: 34mmHg SVG-distal RCA: Widely patent SVG-OM1: 100% stenosis in the ostial segment of the vein graft Medications given: Fentanyl 50mcg, heparin 75 units/kg x1 dose, clopidogrel 300 mg x 1 dose, aspirin 325 mg x 1 dose. Coronary Intervention: XB 3.5 guide catheter Guide wire: 0.014 runthrough guidewire, 0.014 wiggle guidewire After reviewing the above-mentioned findings the decision was made to intervene on the LAD and left main. The XB 3.5 guide catheter was advanced into the ostium of the left main. We then advanced the 0.014 runthrough guidewire across the area stenosis and into the distal LAD. We then performed balloon angioplasty (2.5 x 20 mm > 3.0 x 20 mm > 3.5 x 20 mm) in the proximal-mid LAD, ostial LAD, and distal left main. We then exchanged the 0.014 runthrough guidewire for a 0.014 wiggle guidewire, using a 0.014 fine cross catheter. We then performed balloon lithotripsy (shockwave 3.0 x 12 mm) in the proximal-mid LAD and ostial LAD. We then performed balloon lithotripsy (shockwave 4.0 by 12 mm) in the distal left main. We then performed successful LIONEL placement, Xience justin point 4.0 x 15 mm in the distal left main, Xience justin point 3.5 x 15 mm in the ostial LAD and Xience justin point 3.0 x 23 mm in the proximal to mid LAD. The stent in the left main was post dilated using a 4.0 by 12 mm noncompliant balloon, the stent in the ostial LAD and proximal LAD were post dilated using an NC 3.5 x 12 mm balloon achieving optimal results. Repeat angiography that revealed a widely patent stents in the left main, ostial LAD, proximal LAD, and proximal LAD. The 0.014 wiggle guidewire and XB 3.5 guide catheter were then removed. The patient tolerated the procedure well. Complications: None Conscious Sedation Monitoring: Under my direct order and supervision, medication for moderate conscious sedation was administered by the nursing staff and the patients level of consciousness and physiological status was monitored by an independent trained nurse. Closure of Access Site: After the case completed the sheath was pulled and a 6Fr Angioseal was deployed in the right common femoral artery without complication. Conclusion: 1. ACS-STEMI, 90% stenosis in the distal left main, 99% stenosis in the ostial LAD, 80% stenosis in the proximal to mid LAD, status post successful treatment with balloon angioplasty, balloon lithotripsy, and LIONEL placement, Xience justin point 4.0 x 15 mm in the distal left main, Xience skypoint 3.5 x 15 mm in the ostial LAD, and Xience justin point 3.0 x 23 mm in the proximal to mid LAD 2. Patent SVG-distal RCA, 100% stenosis in SVG-OM1 3. Nonobstructive CAD in the LCX 4. Cardiogenic shock, resolved (norepinephrine IV drip was discontinued at the end of the case) 3. Acute HFrEF (LVEF: 30-35% by echo done 08/11/2025) Recommendation: 1. Continue goal directed medical therapy. 2. Continue aspirin 81 mg daily and clopidogrel 75 mg daily. The patient will remain on DAPT for a minimum of 1 year as per ACS guidelines. 3. Please stop the IV heparin infusion 4. Please start NS at 100 mL/hr x 3 hours 5. Groin precautions 6. 4 hours of bedrest DUANE MAYFIELD MD Aug 13, 2025 11:05 Electronically Signed by: DUANE MAYFIELD MD08/13/25 1105 Electronically Co-Signed by: [place] [address] [address] IMAGING REPORT Signed PATIENT: MARTHA GONZALEZ MR#: [id number] : 1945 SEX: M AGE: 80 LOCATION: [facility] ORDER STATUS: [facility] REPORT#: [id number] SERVICE REASON: CP, SOB ORDERING PHYSICIAN: SARAH MENDEZ MD PROCEDURE: CXR1VW - CHEST 1VW EXAM: CR Chest, 1 View. CLINICAL HISTORY: CP, SOB COMPARISON: None provided. FINDINGS: LUNGS: The lungs show airspace and interstitial opacities in the bilateral perihilar region consistent with pulmonary edema PLEURAL SPACES: No evidence of pleural effusion or pneumothorax. MEDIASTINUM: Cardiac size and mediastinal contours are mildly enlarged with pulmonary congestion BONES: No aggressively appearing osseous lesion was seen. IMPRESSION: Cardiomegaly with pulmonary vascular congestion. Features of pulmonary edema. Sternal wire consistent with post-CABG changes. /[place] DICTATED BY: RAMAN RENTERIA Jr., MD DATE: 08/11/25314 ELECTRONICALLY SIGNED BY: RAMAN RENTERIA Jr., MD DATE: 08/11/25314 [place] [address] [address] IMAGING REPORT Signed PATIENT: MARTHA GONZALEZ MR#: [id number] : 1945 SEX: M AGE: 80 LOCATION: 2CH ORDER 0 STATUS: ADM IN REPORT#: [id number] SERVICE 9 REASON: STEMI ORDERING PHYSICIAN: DUANE BLOOM PROCEDURE: ECHO CMP - ECHO 2-D COMPLETE APPROVED REPORT EXAM: Two-dimensional and M-mode echocardiogram with Doppler and color Doppler. INDICATION ICD: ST-elevation NC 2D Dimensions RVDd 3.9 cm LVEF(%) 30.1 (>50%) LVED Vol(simp.) 168.0 mL IVSd 0.9 (0.7-1.1cm) FS(%) 14 % LVES Vol(simp.) 114.0 mL LVDd 5.6 (3.8-5.6cm) LA (2D) 3.5 (1.6-4.0cm) LVEF(%, simp.) 32 % PWd 1.1 (0.7-1.1cm) Ao Root(2D) 2.1 (2.0-3.7cm) LA ESV INDEX (BP) 45.01 mL/m2 LVDs 4.8 (2.5-4.0cm) LVOT diam 2.1 (1.8-2.4cm) IVC diam 1.6 cm Deformation Strain Apical 4 -10.4 % Apical 2 -8.0 % Apical 3 -6.9 % Global Strain -8.5 % M-Mode Dimensions EPSS 1.5 cm LA (MM) 4.4 (1.6-4.0cm) Ao Root(MM) 2.1 (2.0-3.7cm) Aortic Valve AoV Vmax 1.4 m/s Ao Peak GR 7.9 mmHg LVOT Vmax 0.9 m/s AoV VTI 0.3 m Ao Mean GR 4.3 mmHg LVOT VTI 0.18 m TY (VMAX) 2.27 cm2 Al P1/2T 370 ms TY (VTI) 2.2 cm2 Mitral Valve MV E Vmax 91.5 cm/s DECEL Time 74 ms MV A Vmax 51.4 cm/s P 1/2 T 55 ms E/A ratio 1.8 MVA (PHT) 4.0 cm2 TDI E/E' Medial 24.9 E/E' Lateral 11.4 Medial E' Peak V 3.67 cm/s Lateral E' Peak V 8.01 cm/s Pulmonary Valve PV Vmax 1.1 m/s PV VTI 0.19 m PV Mean GR 3.0 mmHg PV Peak GR 5.0 mmHg Tricuspid Valve TR Vmax 2.8 m/s RVSP 32.4 mmHg TR Peak GR 32.6 mmHg Left Ventricle The left ventricle is dilated. Regional wall motion abnormalities noted. There is normal left ventricular wall thickness. LVEF is 30-35%. Stage II diastolic dysfunction. Right Ventricle The right ventricle is normal size. The right ventricular systolic function is normal. Atria The left atrium is moderately dilated. The right atrium size is normal. Aortic Valve The aortic valve is normal in structure. Trace-mild aortic regurgitation. There is no aortic valvular stenosis. Mitral Valve The mitral valve is normal in structure. Mitral regurgitation is trace. There is no mitral valve stenosis. Tricuspid Valve The tricuspid valve is normal in structure. There is mild tricuspid valve regurgitation noted. Pulmonic Valve Pulmonic valve is not well visualized. There is no pulmonic valvular regurgitation. Great Vessels The aortic root is normal in size. The IVC is normal in size and collapses >50% with inspiration. Pericardium There is no pericardial effusion. Other Information Quality : Average Conclusion The left ventricle is dilated. LVEF is 30-35% with severe apical and anterior wall hypokinesis. Stage II diastolic dysfunction. The right ventricular systolic function is normal. The left atrium is moderately dilated. No hemodynamically significant valvular abnormalities. There is no pericardial effusion. DICTATED BY: ZACK SAMPSON MD DATE: 08/11/25800 ELECTRONICALLY SIGNED BY: ZACK SAMPSON MD DATE: 08/11/[address] [place] [address] IMAGING REPORT Signed PATIENT: MARTHA GONZALEZ MR#: [id number] : 1945 SEX: M AGE: 80 LOCATION: 2AH ORDER 112 STATUS: ADM IN REPORT#: [id number] SERVICE 1122 REASON: Ischemic cardiomyopathy ORDERING PHYSICIAN: INOCENCIA ERNST PAC PROCEDURE: ECHO FU LD - ECHO 2-D F/U-LTD APPROVED REPORT EXAM: LIMITED Two-dimensional and M-mode echocardiogram. Study Details: Previous echo 08/11/25 INDICATION ICD: Ischemic cardiomyopathy I25.5 2D Dimensions RVDd 4.6 cm LVED Vol(simp.) 175.3 mL LVES Vol(simp.) 107.2 mL LVEF(%, simp.) 39 % LA ESV INDEX (BP) 50.28 mL/m2 Deformation Strain Apical 4 -7.1 % Apical 2 -7.8 % Apical 3 -8.5 % Global Strain -7.8 % Left Ventricle The left ventricle is dilated. The mid/apical anterior, apical inferoseptal, apical inferior west and apex are hypokinetic. The other west are grossly normal in function. Mild eccentric left ventricular hypertrophy. Left ventricle systolic function is moderate to severely depressed, estimated LVEF 35 to 40%. Indeterminate diastolic dysfunction. Right Ventricle The right ventricle is mildly dilated. The right ventricular systolic function is mildly depressed. Atria The left atrium is severely dilated, 50 mL/m. The right atrium is dilated. Aortic Valve Aortic valve is trileaflet. Mitral Valve The mitral valve is normal in structure. The leaflets are mildly thickened and calcified. Tricuspid Valve The tricuspid valve is normal in structure. Great Vessels The aortic root is normal in size. Pericardium No pericardial effusion. Conclusion The left ventricle is dilated. Mild eccentric left ventricular hypertrophy. The mid/apical anterior, apical inferoseptal, apical inferior west and apex are hypokinetic. The other west are grossly normal in function. Left ventricle systolic function is moderate to severely depressed, estimated LVEF 35 to 40%. Indeterminate diastolic dysfunction. The right ventricular systolic function is mildly depressed. The gradients across the valves were not assessed. Right-sided pressures were not assessed. No pericardial effusion. DICTATED BY: DUANE MAYFIELD MD DATE: 08/14/25 1202 ELECTRONICALLY SIGNED BY: DUANE MAYFIELD MD DATE: 08/15/25 0146 [place] [address] [address] IMAGING REPORT Signed PATIENT: MARTHA GONZALEZ MR#: [id number] : 1945 SEX: M AGE: 80 LOCATION: 2CH ORDER 99 STATUS: ADM IN REPORT#: [id number] SERVICE 9 REASON: f/p ORDERING PHYSICIAN: VEENA MARI MD PROCEDURE: CXR1VW - CHEST 1VW EXAM: CR Chest, 1 View. CLINICAL HISTORY: CP, SOB COMPARISON: Radiograph of the chest dated August 11 FINDINGS: LUNGS: The lungs show airspace and interstitial opacities in the bilateral perihilar region consistent with pulmonary edema PLEURAL SPACES: No evidence of pleural effusion or pneumothorax. MEDIASTINUM: Cardiac size and mediastinal contours are mildly enlarged with pulmonary congestion BONES: No aggressively appearing osseous lesion was seen. IMPRESSION: Cardiomegaly with pulmonary vascular congestion. Features of pulmonary edema. Sternal wire consistent with post-CABG changes. Stable radiograph, no significant interval changes noted. /[place] DICTATED BY: RAMAN RENTERIA Jr., MD DATE: 08/12/25635 ELECTRONICALLY SIGNED BY: RAMAN RENTERIA Jr., MD DATE: 08/12/[address] [address] IMAGING REPORT Signed PATIENT: MARTHA GONZALEZ MR#: [id number] : 1945 SEX: M AGE: 80 LOCATION: 2AH ORDER 99 STATUS: ADM IN REPORT#: [id number] SERVICE 9 REASON: chf ORDERING PHYSICIAN: KRISH HENAO MD PROCEDURE: CXR1VW - CHEST 1VW EXAM: CR Chest, 1 View. CLINICAL HISTORY: chf COMPARISON: 08/12/2025 FINDINGS: LUNGS: The lungs show persistent airspace and interstitial opacities in the bilateral perihilar region consistent with pulmonary edema. PLEURAL SPACES: No evidence of pleural effusion or pneumothorax. MEDIASTINUM: Cardiac size is stable. Mild pulmonary vascular congestion. Median sternotomy sutures. BONES: No aggressive appearing osseous lesion seen. IMPRESSION: 1. Persistent bilateral perihilar airspace and interstitial opacities, consistent with pulmonary edema. 2. Mild pulmonary vascular congestion. No significant interval changes since the prior. /[place] DICTATED BY: RAMAN RENTERIA Jr., MD DATE: 08/14/252128 ELECTRONICALLY SIGNED BY: RAMAN RENTERIA Jr., MD DATE: 08/14/252128 [place] [id number] IMAGING REPORT Signed PATIENT: MARTHA GONZALEZ MR#: [id number] : 1945 SEX: M AGE: 80 LOCATION: 2AH ORDER 103 STATUS: ADM IN REPORT#: [id number] SERVICE 103 REASON: PULMONARY EDEMA, FOLLOW UP ORDERING PHYSICIAN: ZACK SAMPSON MD PROCEDURE: CXR1VW - CHEST 1VW EXAM: XR Chest, 1 View(s). CLINICAL HISTORY: Follow up pulmonary edema. COMPARISON: 08/14/2025. FINDINGS: LUNGS: Interval improvement in bilateral airspace opacities when compared to the previous radiograph of 08/14/2025. Persistent hilar vascular congestion and interstitial markings. Minimal left basal atelectasis. These findings are in keeping interval improvement of pulmonary edema; clinical correlation and correlation with echocardiographic findings are recommended. PLEURAL SPACES: Small left-sided pleural effusion and left basal attelactasis, new from previous radiograph of 06/14/2025. No pneumothorax. HEART: Status post CABG. Cardiac silhouette is partly obscured. BONES: No acute osseous abnormality. IMPRESSION: 1. Interval improvement in bilateral airspace opacities, pulmonary edema when compared to the previous radiograph as of 08/14/2025. 2. Persistent bilateral hilar vascular congestion and interstitial markings. Interval development of left basal atelectasis and small left-sided pleural effusion; findings in keeping with known pulmonary odema, compared to CXR 08/14/2025. Correlate with clinical examination and echocardiography data. /[place] DICTATED BY: JYOTI MCINTYRE MD DATE: 08/17/25156 ELECTRONICALLY SIGNED BY: JYOTI MCINTYRE MD DATE: 08/17/25156 [place] [address] [place] [address] IMAGING REPORT Signed PATIENT: MARTHA GONZALEZ MR#: [id number] : 1945 SEX: M AGE: 80 LOCATION: [facility] ORDER 7 STATUS: ADM IN REPORT#: [id number] SERVICE REASON: patency of bilateral common femoral arteries ORDERING PHYSICIAN: DUANE MAYFIELD MD PROCEDURE: ART B LE - US ARTERIAL BILAT LOW EXT DUPL EXAM: US bilateral Upper Extremity Nonvascular Soft Tissue Ultrasound CLINICAL HISTORY: Patency of bilateral common femoral arteries TECHNIQUE: Real-time ultrasound scan of the bilateral upper extremity with image documentation. COMPARISON: None provided. FINDINGS: Right Lower Limb: Common Femoral Artery (YARN BLEACHING MACHINE OPERATOR): Triphasic flow pattern with peak systolic velocity of 89 cm/s. Superficial Femoral Artery (SFA) Proximal: Biphasic flow, peak systolic velocity 67 cm/s. Superficial Femoral Artery (SFA) Mid: Biphasic flow, peak systolic velocity 79 cm/s. Superficial Femoral Artery (SFA) Distal: Biphasic flow, peak systolic velocity 66 cm/s. Popliteal Artery (Proximal): Biphasic flow, peak systolic velocity 52 cm/s. Popliteal Artery (Distal): Biphasic flow, peak systolic velocity 48 cm/s. Posterior Tibial Artery (QUALITATIVE FIELD PROJECT MANAGER): Biphasic flow, peak systolic velocity 61 cm/s. Anterior Tibial Artery (GEM): Biphasic flow, peak systolic velocity 40 cm/s. Dorsalis Pedis Artery (DPA): Biphasic flow, peak systolic velocity 28 cm/s. Left Lower Limb: Common Femoral Artery (YARN BLEACHING MACHINE OPERATOR): Triphasic flow pattern with peak systolic velocity 134 cm/s. Superficial Femoral Artery (Proximal): Biphasic flow, peak systolic velocity 67 cm/s. Superficial Femoral Artery (Distal): Biphasic flow, peak systolic velocity 60 cm/s. Popliteal Artery (Proximal): Biphasic flow, peak systolic velocity 48 cm/s. Popliteal Artery: Biphasic flow, peak systolic velocity 60 cm/s. Posterior Tibial Artery (QUALITATIVE FIELD PROJECT MANAGER): Biphasic flow, peak systolic velocity 67 cm/s. Anterior Tibial Artery (EGM): Biphasic flow, peak systolic velocity 40 cm/s. Dorsalis Pedis Artery (DPA): Biphasic flow, peak systolic velocity 38 cm/s. Evidence of multilevel atherosclerotic changes with diffuse thinning of arterial west throughout the left lower limb arterial system. IMPRESSION: Multilevel atherosclerotic changes in bilateral lower limb arteries. Biphasic flow pattern in multiple arterial segments in both lower limbs, suggestive of reduced arterial compliance and early arterial insufficiency. /[place] DICTATED BY: RAMAN RENTERIA Jr., MD DATE: 08/12/251114 ELECTRONICALLY SIGNED BY: RAMAN RENTERIA Jr., MD DATE: 08/12/251114 Assessment/Plan: ASSESSMENT: ACS-STEMI. Status post PTCA/PCI of the distal left main, ostial LAD and proximal to mid LAD 08/13/2025 with patent SVG to distal RCA and 100% stenosis in the SVG to OM1. Ischemic cardiomyopathy. 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 Left renal mass. Anemia of chronic disease Primary hypertension Obstructive coronary artery disease Atherosclerosis History of neuroendocrine cancer History of CABG History of cardiac stent History of liver mass/cancer s/p treatment by MD [facility] Discharge Instructions: 1. Heart & Stent Care You had three new stents placed. Take Aspirin + Plavix every day without missing doses. Do not stop DAPT unless instructed by cardiology. Use nitroglycerin if you develop chest pain. 2. Heart Failure Management Continue Lasix daily. Weigh yourself every morning. Call your doctor if you gain >3 lbs in 24 hours or 5 lbs in a week. Limit salt and avoid adding salt to food. 3. Activity Restrictions Avoid lifting >1015 lbs for 1 week. Do not strain or engage in vigorous activity until cleared by cardiology. Walk daily as tolerated. 4. Groin Access Site Care Keep site clean and dry. Watch for swelling, bleeding, numbness, or severe pain. 5. When to Return to the ER Chest pain not relieved by nitroglycerin Trouble breathing Fainting or severe dizziness Bleeding from access site Leg numbness or coldness 6. Oncology Resume cancer treatment only after cardiology and oncology clearance. Follow up with Dr. Vora on August 25. Home Medications: Active Scripts Furosemide (Furosemide) 40 Mg Tablet, 1 TAB PO DAILY for 30 Days, #30 TAB 0 Refills Prov:JAYNE SCHMITT MD 08/17/25 Ezetimibe (Zetia) 10 Mg Tablet, 1 TAB PO DAILY for 30 Days, #30 TAB 0 Refills Prov:JAYNE SCHMITT MD 08/17/25 Atorvastatin Calcium (LIPITOR) 40 Mg Tablet, 1 TAB PO DAILY for 10 Days, #10 TAB 0 Refills Prov:JAYNE SCHMITT MD 08/17/25 Clopidogrel Bisulfate (Plavix) 75 Mg Tablet, 1 TAB PO DAILY for 30 Days, #30 TAB 0 Refills Prov:JAYNE SCHMITT MD 08/17/25 Reported Medications Aspirin (ASPIRIN 81MG CHEW TAB) 81 Mg Tab.chew, 1 TAB PO DAILY for 30 Days, #30 TAB 0 Refills 08/02/25 Discontinued Reported Medications Ubidecarenone (Coq-10) 100 Mg Capsule, 100 MG PO DAILY, CAP 08/02/25 Amlodipine Besylate (Amlodipine Besylate) 10 Mg Tablet, 1 TAB PO DAILY for 30 Days, #30 TAB 0 Refills 08/02/25 Valsartan (Valsartan) 160 Mg Tablet, 1 TAB PO DAILY for 30 Days, #30 TAB 0 Refills 08/02/25 New Medications: Atorvastatin Calcium (Lipitor) 40 Mg Tablet 1 TAB PO DAILY for 10 Days, #10 TAB 0 Refills Clopidogrel Bisulfate (Plavix) 75 Mg Tablet 1 TAB PO DAILY for 30 Days, #30 TAB 0 Refills Ezetimibe (Zetia) 10 Mg Tablet 1 TAB PO DAILY for 30 Days, #30 TAB 0 Refills Furosemide (Furosemide) 40 Mg Tablet 1 TAB PO DAILY for 30 Days, #30 TAB 0 Refills Continued Medications: Aspirin (Aspirin 81MG Chew Tab) 81 Mg Tab.chew 1 TAB PO DAILY for 30 Days, #30 TAB 0 Refills Discontinued Medications: Valsartan (Valsartan) 160 Mg Tablet 1 TAB PO DAILY for 30 Days, #30 TAB 0 Refills Time spent arranging discharge: 1-30 minutes ATTESTATION BY PHYSICIAN I have seen and examined the patient. I reviewed the documentation, medical decision making, and treatment plan as noted by the resident provider above. I agree with the findings and plan of care. Luis An MD, HEMA MD Aug 17, 2025 13:10 JAYNE SCHMITT MD Aug 17, 2025 17:25
[2025-08-17] MEDS ORDERED: CLOP-31 PO (13:26)
[2025-08-17] MEDS ORDERED: EZET10TA81 PO (13:26)
[2025-08-17] MEDS ORDERED: ATOR40TA69 PO (13:26)
[2025-08-17] MEDS ORDERED: FURO40TA5 PO (13:26)
--- NOTE | 2025-08-17 15:55 | NUR ---
PATIENT ALERT AND ORIENTED X4 WITH SPOUSE AT BEDSIDE BEING DISCHARGED HOME. PATIENT EDUCATED ON FINAL MEDIATION LIST INCLUDING SIDE EFFECTS. PATIENT TO [facility] C[facility] OPERATOR PRESCRIPTION FROM PREFERRED PHARMACY. DISCHARGE INSTRUCTIONS GIVEN. STENTS CARD GIVEN TO PATIENT. EDUCATED TO CALL DR. MAYFIELD OFFICE AND MAKE AN TOMMIE FOR 1-2 WKS, FOLLOW UP WITH PCP AND ONCOLOGY. IV REMOVED WITHOUT COMPLICATIONS. ALL QUESTIONS ANSWERED, PATIENT AND SPOUSE VERBALIZED COMPLETE UNDERSTANDING. PATIENT GATHERED ALL BELONGINGS AND TOOK WITH HIM AT [place].
--- NOTE | 2025-08-17 16:30 | NUR ---
SPOUSE PICKED UP PATIENT AT THIS TIME.
== END 2025-08-17 16:30 | disposition home or self-care (01) | DRG 323 ==
LOC: EDH 00:10 → EDHIP 02:35 → 2CH 04:52 → 2AH 08-13 16:03
PROVIDERS: ADMIT Internal Medicine; ATTEND Internal Medicine
PROC: 30233N1 Transfusion of Nonautologous Red Blood Cells into Peripheral Vein, Percutaneous Approach (ICD-10-PCS; 2025-08-12)
PROC: 4A023N7 Measurement of Cardiac Sampling and Pressure, Left Heart, Percutaneous Approach (ICD-10-PCS; principal; 2025-08-13)
PROC: 027136Z Dilation of Coronary Artery, Two Arteries with Three Drug-eluting Intraluminal Devices, Percutaneous Approach (ICD-10-PCS; 2025-08-13)
PROC: 02F13ZZ Fragmentation in Coronary Artery, Two Arteries, Percutaneous Approach (ICD-10-PCS; 2025-08-13)
PROC: B2111ZZ Fluoroscopy of Multiple Coronary Arteries using Low Osmolar Contrast (ICD-10-PCS; 2025-08-13)
DX: I21.3 ST elevation (STEMI) myocardial infarction of unspecified site (principal); E43 Unspecified severe protein-calorie malnutrition; J96.01 Acute respiratory failure with hypoxia; R57.0 Cardiogenic shock; I50.23 Acute on chronic systolic (congestive) heart failure; C78.7 Secondary malignant neoplasm of liver and intrahepatic bile duct; Z51.5 Encounter for palliative care; Z79.02 Long term (current) use of antithrombotics/antiplatelets; I11.0 Hypertensive heart disease with heart failure; I34.0 Nonrheumatic mitral (valve) insufficiency; E11.51 Type 2 diabetes mellitus with diabetic peripheral angiopathy without gangrene; D63.8 Anemia in other chronic diseases classified elsewhere; D62 Acute posthemorrhagic anemia; Z68.1 Body mass index [BMI] 19.9 or less, adult; N28.89 Other specified disorders of kidney and ureter; I25.5 Ischemic cardiomyopathy; E78.5 Hyperlipidemia, unspecified; N20.0 Calculus of kidney; I25.10 Atherosclerotic heart disease of native coronary artery without angina pectoris; Z95.5 Presence of coronary angioplasty implant and graft; Z85.05 Personal history of malignant neoplasm of liver; Z82.49 Family history of ischemic heart disease and other diseases of the circulatory system; Z80.9 Family history of malignant neoplasm, unspecified; Z79.899 Other long term (current) drug therapy; Z79.82 Long term (current) use of aspirin; I25.2 Old myocardial infarction
CPT/HCPCS: 36415; 36430; 36600; 71045; 80048; 80053; 80061; 80076; 81003; 82105; 82435; 82550; 82803; 82947; 83036; 83540; 83550; 83605; 83735; 83880; 84100; 84132; 84295; 84439; 84443; 84481; 84484; 85018; 85025; 85347; 85610; 85730; 86850; 86900; 86901; 86923; 92972; 92978; 92979; 93005; 93306; 93308; 93356; 93458; 93925; 96361; 96374; 99156; 99157; 99291; C1760; C1769; C1894; C9600; G0378; J1200; J1644; J1938; J2250; J2270; J2405; J2919; J3010; J3490; P9016; P9047; Q0163; Q9967; C1725; C1753; C1761; C1874; C1887; J1308; Q9965